=== PATIENT | male | born 1965 | race Caucasian/White ===

== ENCOUNTER 2019-05-07 01:29 | Outpatient (CLI) | payer MEDICAID, SELFPAY ==
[2019-05-07 10:00] LABS: Abs Immature Grans 0.02 k/cumm (0.0-0.09); Absolute Basophil Count 0.05 k/cumm (0.0-0.2); Absolute Eosinophil Count 0.13 k/cumm (0.0-0.7); Absolute Monocyte Count 0.78 k/cumm (0.11-0.7); Basophils % 0.6; Eosinophils % 1.4; HCT 48.5 % (40.0-50.0); HGB 15.9 g/dL (13.5-17.5); Immature Grans % 0.2; Lymphocytes % 18.9; Mean Corp. HGB Concentration 32.8 g/dL (32.0-36.0); Mean Corpuscular Volume 85.4 fL (80-95); Mean Platelet Volume 11.5 fL (8.0-11.0); Monocytes % 8.7; Neutrophils % 70.2; Platelet Count 281 x1000/uL (130-400); RBC 5.68 m/cumm (4.50-6.00); RBC Distribution Width 15.7 % (11.8-14.1); White Blood Cell Count 8.98 k/cumm (4.4-10.8)
[2019-05-07 12:04] LABS: Hemoglobin A1C 5.7 % (4.5-6.2)
[2019-05-07 12:13] LABS: ALT 16 U/L (16-63); AST 12 U/L (15-37); Albumin 3.6 g/dL (3.4-5.0); Alkaline Phosphatase 76 U/L (46-116); Anion Gap 6.1 mmol/L (3-11); BUN 9 mg/dL (7-18); Bilirubin, Total 0.7 mg/dL (0.2-1.0); CO2 32.9 mmol/L (21.0-32.0); CREATININE 0.92 mg/dL (0.70-1.30); Calcium 8.8 mg/dL (8.5-10.1); Calculated LDL 166 mg/dL; Chloride 99 mmol/L (98-107); Cholesterol 224 mg/dL (50-200); Glucose 107 mg/dL (70-100); HDL Cholesterol 42 mg/dL (40-60); Potassium 3.9 mmol/L (3.5-5.1); Sodium 138 mmol/L (136-145); Total Protein 7.6 g/dL (6.4-8.2); Triglyceride 84 mg/dL (30-150)
== END 2019-05-07 01:49 ==
PROVIDERS: PCP Nurse Practitioner Family; Visit Provider Nurse Practitioner Family
DX: I10 Essential (primary) hypertension (principal); E78.5 Hyperlipidemia, unspecified; G47.33 Obstructive sleep apnea (adult) (pediatric)
CPT/HCPCS: 36415; 80053; 80061; 83036; 85025

== ENCOUNTER 2021-12-29 19:14 | Outpatient (REF) | payer MEDICAID, SELFPAY ==
[2021-12-29 20:25] LABS: Anion Gap 6.1 mmol/L (3-11); BUN 11 mg/dL (7-18); CO2 34.9 mmol/L (21.0-32.0); CREATININE 0.9 mg/dL (0.70-1.30); Calcium 9.3 mg/dL (8.5-10.1); Chloride 99 mmol/L (98-107); Glucose 97 mg/dL (74-106); Sodium 140 mmol/L (136-145)
[2021-12-29 20:29] LABS: Hemoglobin A1C 5.6 % (<5.7)
== END 2021-12-29 19:15 | disposition home or self-care (01) ==
LOC: LBN 19:14
PROVIDERS: PCP Nurse Practitioner Family; Visit Provider Nurse Practitioner
DX: I10 Essential (primary) hypertension (principal); R73.03 Prediabetes
CPT/HCPCS: 80048; 83036

== ENCOUNTER 2022-07-04 11:17 | Inpatient (IN) | payer MEDICAID, SELFPAY ==
[2022-07-04] VITALS (27 sets, daily range): BP systolic 102–145; BP diastolic 44–95; PULSE 80–101; RESP 5–23; TEMP 36.1–37.3; O2SAT 89–96
--- NOTE | 2022-07-04 11:30 | RT.EKG_ITS ---
APPROVED REPORT Exam: Resting ECG Reason for Exam: dizzy Patient Location: E HR:90 bpm ECG Measurements Heart Rate 90 AXIS TN 161 P 55 QRSd 96 QRS 71 QT 373 T 33 QTc 456 Conclusion Sinus rhythm...normal P axis, V-rate 60- 99
--- NOTE | 2022-07-04 12:00 | DI.RAD_ITS ---
Exam(s) XR PORTABLE CHEST AP EXAM: XR PORTABLE CHEST AP CLINICAL HISTORY: hypoxia TECHNIQUE: 2D digital imaging was performed of the chest. One image was obtained. An AP view was ob tained. COMPARISON: CR RIBS BILATERAL TO INCLUDE CXR from 08/20/2016 FINDINGS: There is poor inspiration with crowding of the vasculature. MEDIASTINUM: Normal. HEART: Stable cardiomegaly. PULMONARY VASCULATURE: Normal. LUNGS: No focal consolidating infiltrate. PLEURAL SPACE: No pleural effusion or pneumothorax. BONE:Within normal limits for the patient's age. OTHER FINDINGS:Normal. IMPRESSION: 1. Stable cardiomegaly. 2. Poor inspiration. 3. No focal consolidating infiltrates. DATA REPOSITORY: RADIATION DOSE DELIVERED:
[2022-07-04 12:02] LABS: Abs Immature Grans 0.04 10^3/uL (0.0-0.06); Absolute Basophil Count 0.06 10^3/uL (0.0-0.2); Absolute Eosinophil Count 0.08 10^3/uL (0.0-0.7); Absolute Lymphocyte Count 1.13 10^3/uL (1.2-3.4); Absolute Neutrophil Count 8.71 10^3/uL (1.2-6.7); Basophils % 0.5; Eosinophils % 0.7; HCT 51.4 % (40.0-50.0); HGB 15.3 g/dL (13.5-17.5); Immature Grans % 0.4; Lymphocytes % 10.2; MCH 26.1 pg (27.0-33.0); MCHC 29.8 % (32.0-36.0); MCV 88 fL (80-95); MPV 11.2 fL (8.0-11.0); Monocytes % 9.9; Neutrophils % 78.3; Platelet Count 268 10^3/uL (130-400); RBC 5.87 10^6/uL (4.36-5.78); RDW 13.8 % (11.8-14.1); RDW-SD 44.1 fL; WBC 11.12 10^3/uL (4.4-10.8)
--- NOTE | 2022-07-04 12:12 | ED.GENADUL_ITS ---
Discharge Plan Disposition Patient Disposition: Admit to [facility] Condition: Stable Discharge Details Clinical Impression: Hypoxia Admit Date/Time: 07/04/22 15:35 Admit Provider: Angelique Pastrana Attending Provider: Angelique Pastrana Primary Care Provider: Sanjeev Brewer ED Provider: Vinod Mcadams Discharge Data Discharge Date/Time-TO BE ENTERED AT DEPARTURE: 07/04/22 17:04 Medical Decision Making 57 yo male with no significant chronic medical issues, is obese and denies smoking or drug use and doesn't drink alcohol, comes in with feelin tired, went to express care and o2 sat was in the 70's so was referred here. HE states this has been going on for 3 weeks or so, and he has checked his oxygen saturation at home and has been in the 80's. He doesn't feel short of breath and denies chest pain, he states at night he will sometimes have a cough but denies cough throughout the day. He is noted to be hypoxic in the 70s on room air in no distress speaking in full sentences. He increases to 95% on 4L NC. He has clear lung sounds on the left, diminished on the right side. Has equal edema of both lower extremities which he states he has had for years and is unchanged, no calf tenderness. Given the hypoxia will obtain fluvid, cxr to evaluate for infiltrate, obtain cbc, cmp, troponin and probnp. No wheezing on exam so doubt copd/asthma. IF initial workup negative will consider cta for pe labs show probnp just over 300, negative troponin, cxr with cardiomegaly otherwise no acute findings. He is now sitting up in the stretcher and does sound like he has wheezing in the lower lung christensen bilaterally. Will trial duoneb and obtain cta of the chest cta negative per Dr. Basurto, pt in no distress but still requiring oxygen. will discuss with hospitalist about admission Differential Diagnosis Differential Diagnosis: chf, pneumonia, covid, pe Medical Records Medical records reviewed: Yes I reviewed the patient's medical records. Imaging Data Radiologic Study: Attestation: I personally reviewed and interpreted this imaging study as follows: Imaging: X-Ray Radiologist's impression: IMPRESSION: 1. Stable cardiomegaly. 2. Poor inspiration. 3. No focal consolidating infiltrates.? Radiologic Study #2: Attestation: I personally reviewed and interpreted this imaging study as follows: Imaging: CT Scan Radiologist's impression: no acute findings Lab Data Lab results reviewed: Yes I reviewed the patient's lab results. ECG Data Attestation: I personally reviewed and interpreted this ECG (s) as follows: Prior ECG tracings: not available for review Interpretation: sinus rhythm, rate of 90, pr 161 no stemi Sign Out No HPI General Mode of arrival: ambulatory . Date/Time Provider Initiated Documentation: 07/04/22 11:18 . Limitations to Documentation: no limitations . Information obtained by: patient . History of Present Illness 57 year old M presents to the emergency department with the chief complaint of tired, described as moderate, Patient started experiencing this week(s) (3) and it has been constant. No relieving factors improve symptom(s), No exacerbating factors reported . Patient notes cough; denies chest pain, fever/chills and shortness of breath. Patient did receive the following treatments prior to arrival, none Related Data Home Medications Medication Instructions Recorded Confirmed chlorthalidone 25 mg tablet 25 mg PO DAILY #90 tabs 12/29/21 07/04/22 lisinopril 40 mg tablet 40 mg PO DAILY #90 tabs 12/29/21 07/04/22 escitalopram oxalate 20 mg tablet 20 mg PO DAILY #90 tabs 02/08/22 07/04/22 sildenafil 50 mg tablet (Viagra) 50 mg PO DAILY PRN sexual activity 02/08/22 07/04/22 #60 tabs furosemide 20 mg tablet 20 mg PO DAILY #90 tabs 05/02/22 07/04/22 semaglutide 7 mg tablet 7 mg PO DAILY #90 tabs 05/02/22 07/04/22 Previous Rx's Medication Instructions Recorded chlorthalidone 25 mg tablet 25 mg PO DAILY #90 tabs 12/29/21 lisinopril 40 mg tablet 40 mg PO DAILY #90 tabs 12/29/21 escitalopram oxalate 20 mg tablet 20 mg PO DAILY #90 tabs 02/08/22 sildenafil 50 mg tablet (Viagra) 50 mg PO DAILY PRN sexual activity 02/08/22 #60 tabs furosemide 20 mg tablet 20 mg PO DAILY #90 tabs 05/02/22 semaglutide 7 mg tablet 7 mg PO DAILY #90 tabs 05/02/22 Allergies Allergy/AdvReac Type Severity Reaction Status Date / Time plums AdvReac Unknown Uncoded 07/04/22 10:39 General Stated Complaint: AMS/LOC MONTRELL: 2 Review of Systems All systems reviewed & are unremarkable except as noted in HPI and below Constitutional Constitutional: Denies chills and Denies fever(s) Cardiovascular Cardiovascular: Denies chest pain and Denies dyspnea Respiratory Respiratory: Denies dyspnea Gastrointestinal Gastrointestinal: Denies abdominal pain, Denies nausea and Denies vomiting Genitourinary Genitourinary: Denies dysuria Musculoskeletal Musculoskeletal: Denies joint swelling PFSH All Active Problems Respiratory acidosis (Acute) Toxic metabolic encephalopathy (Acute) Acute on chronic respiratory failure with hypoxia and hypercapnia (Acute) Altered mental state (Acute) Lower extremity ulceration (Acute) Hypercarbia (Acute) Discharge planning issues (Acute) DVT prophylaxis (Acute) Hypoxia (Acute) Morbid obesity with BMI of 60.0-69.9, adult (Chronic) Insomnia (Chronic) Depressive disorder (Chronic) Severe obstructive sleep apnea (Chronic) Original PSG 12/02/16; BIPAP Essential hypertension (Chronic) Prediabetes (Chronic) Chewing tobacco use (Chronic) Medical History Hyperlipidemia Surgical History H/O umbilical hernia repair (05/26/14) S/P appendectomy S/P colonoscopy (12/14/16) Family History Mother , at 70 from metastatic breast cancer Essential hypertension Metastatic breast cancer Type 2 diabetes mellitus Father No problems noted. Sister Depression Maternal Grandfather Heart disease Lung cancer Maternal Grandmother COPD with emphysema Paternal Grandfather No problems noted. Paternal Grandmother No problems noted. 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 Pets and animals: No Sexually active: Yes Do you think of yourself as: straight/heterosexual Current gender identity: male What is your relationship status?: How often do you talk on the phone with friends or family?: three or more times per week How often do you get together with friends or relatives?: three or more times per week How often do you attend roman catholic or episcopalian services?: decline to answer Do you belong to any clubs or organized social groups?: decline to answer Panel score (0-1 are the most socially isolated patients): 1 What type of physical activity do you participate in: walking Duration: 15-30 minutes/day Frequency: daily Kay/Mosque: none Special kay needs: No Seatbelt use: never Helmet use: Yes Helmet use: always Drive intox or ride w/intox delivery motorcycle driver: No Do you feel safe in your relationship?: Yes Exam Const General: no acute distress Orientation: alert HENMT Head: normal to inspection Ears: external ears normal General nose exam: external nose normal Mouth: moist mucous membranes Eyes General: appearance normal, both eyes and all related structures Neck Neck: normal visual inspection Resp Effort & Inspection: normal respiratory effort, able to speak in complete sentences and no audible wheezes Cardio Rate: regular rate Heart Sounds: no murmurs Skin General skin exam: no rashes or lesions noted Neuro General: patient alert and patient oriented x3 Extrem General: full ROM and capillary refill normal Psych Mental Status: mental status grossly normal Course Vital Signs Vital signs: Vital Signs Temperature 37.3 C 07/04/22 12:01 Pulse 87 07/04/22 12:01 Respiratory Rate 20 07/04/22 12:01 Blood Pressure 115/71 07/04/22 12:01 Pulse Oximetry 89 L 07/04/22 12:01 Temperature 37.3 C 07/04/22 12:01 Temperature Source Temporal Artery Scan 07/04/22 12:01 Pulse 87 07/04/22 12:01 Respiratory Rate 22 07/04/22 12:04 Respiratory Effort Short of Breath 07/04/22 12:04 Respiratory Depth Normal 07/04/22 12:04 Respiratory Pattern Normal 07/04/22 12:04 Blood Pressure 115/71 07/04/22 12:01 Pulse Oximetry 89 L 07/04/22 12:01 Oxygen Delivery Method Nasal Cannula 07/04/22 12:01 Oxygen Flow Rate 3 07/04/22 12:01 Pain Level 0 07/04/22 12:01 Lab/Test Results Lab/Test Results: Laboratory Tests Range/Units 07/04/22 11:55 WBC (4.4-10.8) 10^3/uL 11.12 H RBC (4.36-5.78) 10^6/uL 5.87 H Hgb (13.5-17.5) g/dL 15.3 Hct (40.0-50.0) % 51.4 H MCV (80-95) fL 88 MCH (27.0-33.0) pg 26.1 L MCHC (32.0-36.0) % 29.8 L RDW (11.8-14.1) % 13.8 Plt Count (130-400) 10^3/uL 268 MPV (8.0-11.0) fL 11.2 H Immature Gran % 0.4 Neutrophils % 78.3 Lymphocytes % 10.2 Monocytes % 9.9 Eosinophils % 0.7 Basophils % 0.5 Nucleated RBC % (0.0-0.3) % 0.0 Absolute Neutrophils (1.2-6.7) 10^3/uL 8.71 H Absolute Lymphocytes (1.2-3.4) 10^3/uL 1.13 L Absolute Monocytes (0.1-0.8) 10^3/uL 1.10 H Absolute Eosinophils (0.0-0.7) 10^3/uL 0.08 Absolute Basophils (0.0-0.2) 10^3/uL 0.06
[2022-07-04 12:23] LABS: ALT 17 U/L (16-63); AST 21 U/L (15-37); Albumin 3.2 g/dL (3.4-5.0); Alkaline Phosphatase 76 U/L (46-116); Anion Gap -1.7 mmol/L (3-11); BUN 11 mg/dL (7-18); Bilirubin, Total 0.4 mg/dL (0.2-1.0); CO2 41.7 mmol/L (21.0-32.0); CREATININE 0.7 mg/dL (0.70-1.30); Calcium 8.3 mg/dL (8.5-10.1); Chloride 99 mmol/L (98-107); Estimated GFR 108.82 (mL/min/1.73m2); Glucose 100 mg/dL (74-106); Magnesium 2.2 mg/dL (1.8-2.4); NT-proBNP 386 pg/mL (<300); Potassium 4.4 mmol/L (3.5-5.1); Sodium 139 mmol/L (136-145); Total Protein 7.8 g/dL (6.4-8.2); Troponin I < 50 ng/L (<or=60)
[2022-07-04 12:38] LABS: COVID-19 PCR Negative (Negative); Influenza A PCR Negative (Negative); Influenza B PCR Negative (Negative); RSV PCR Negative (Negative)
--- NOTE | 2022-07-04 13:50 | DI.CT_ITS ---
Exam(s) CT CHEST PE CTA EXAM: CT CHEST PE CTA CLINICAL HISTORY: hypoxia. TECHNIQUE: Imaging Protocol: Axial CT angiography was performed with multi-slice acquisition and mu lti-planar and/or 3D reconstructions. CONTRAST MATERIAL: Intravenous: Omnipaque 350 contrast volume:99 mL COMPARISON: CR XR PORTABLE CHEST AP from 07/04/2022 FINDINGS: Examination limited by patient body habitus. Tracheobronchial tree: Patent where visualized. Pulmonary parenchyma: No consolidation or dominant measurable mass. There are dependent atelectatic c hanges in the lungs. No focal consolidation is seen. Pulmonary Arteries: The subsegmental and some of the segmental pulmonary arteries are poorly opacifie d limiting evaluation for peripheral pulmonary emboli. No large central pulmonary embolus is seen. Mediastinum and Ayanna: No dominant adenopathy or fluid collection. The esophagus is unremarkable. Visualized thyroid gland: Unremarkable. Pleura: No effusion or pneumothorax. Heart: The heart is not dilated. No coronary artery calcifications are seen. No pericardial effusion. Aorta: Thoracic aorta non-dilated. No evidence of dissection. Mild atherosclerosis. Upper abdomen: Unremarkable. Soft tissues: Unremarkable. Bones: Within normal limits for the patient's age.There are old healed rib fractures. IMPRESSION: 1. No evidence of pulmonary embolism. The subsegmental on some of the segmental pulmonary arteries a re poorly opacified limiting evaluation for peripheral pulmonary emboli. 2. Thoracic aortic dissection or aneurysm. 3. Examination is limited due to patient body habitus. 4. Findings were discussed with Dr. Mcadams at 3:14 p.m. on 07/04/2022. RADIATION DOSE DELIVERED: 873.79mGy.cm Total DLP DATA REPOSITORY: All CT scans at this facility are submitted to the National Radiology Data Registry (NRDR) Dose Index Registry (DIR) with the [employer] (ACR). RADIATION OPTIMIZATION: All CT scans at this facility use at least one of these dose optimization te chniques: automated exposure control; mA and/or kV adjustment per patient size (includes targeted exa ms where dose is matched to clinical indication); or iterative reconstruction.
[2022-07-04] MEDS: Albuterol/Ipratropium 3 ML UPD VIAL UPD ×2 (14:11→15:26)
[2022-07-04] MEDS: Normal Saline - Diluent 50 ML VIAL IJ (14:32)
[2022-07-04] MEDS: Normal Saline Flush 10 ML SYR IVP ×2 (14:33→19:29)
[2022-07-04] MEDS: Omnipaque 350 MG/ML 100 ML BTL IJ (14:34)
[2022-07-04 15:38] LABS: Troponin I < 50 ng/L (<or=60)
[2022-07-04 15:46] LABS: Lab Add On Test DONE
[2022-07-04 15:58] LABS: HCO3 (Venous) 41 mmol/L (23-28); TCO2 (Venous) 43 mmol/l (24-29); pH (Venous) 7.26 (7.31-7.41); pO2 (Venous) 101 mmHg
[2022-07-04 15:59] LABS: BE (Venous) 13 mmol/L (-2-3); O2 Sat (Venous) 96 %
[2022-07-04 16:00] LABS: pCO2 (Venous) 90 mmHg (41-51)
[2022-07-04 16:33] LABS: Procalcitonin < 0.1 ng/mL
--- NOTE | 2022-07-04 17:44 | W.PM.HP.N ---
Date of service: 07/04/22 Time of Service: 17:44 Assessment and Plan Assessment and plan (1) Hypercarbia: Status: Acute Assessment and plan: Carbon Dioxide 41.7 VBG pCO2 90 BiPap per RT settings to decrease CO2 and improve oxygenation WBC 11.12 Procalcitonin <0.1 Recheck WBC /15 (2) Hypoxia: Status: Acute Assessment and plan: SPO2 70% RA up to 96% on 4 LPM BiPap per RT settings to improve oxygenation and decrease CO2; improving AMS HOB at least 45 degrees Incentive Sprirometer (3) Altered mental state: Status: Acute Assessment and plan: S/T hypercarbia; as above (4) Lower extremity ulceration: Status: Acute Assessment and plan: Ulcerations to BLE, weeping; will get wound consult (5) Morbid obesity with BMI of 60.0-69.9, adult: Status: Chronic Assessment and plan: Obese; consult chief estimator; Heart Healthy low fat diet (6) Severe obstructive sleep apnea: Status: Chronic Assessment and plan: Has home BiPap; does not use it - encourage him to use it nightly BiPap initiated here (7) Depressive disorder: Status: Chronic Assessment and plan: Stable - continue Escitalopram (8) Essential hypertension: Status: Chronic Assessment and plan: Stable - continue Lisinopril (9) Prediabetes: Status: Chronic Assessment and plan: Most recent A1C 5.6% 12/29/2021 SC Insulin (10) DVT prophylaxis: Status: Acute Assessment and plan: Enoxaparin 60 mg BID (11) Discharge planning issues: Status: Acute Assessment and plan: Home when stable discussed with Dr Pastrana History of Present Illness History of Present Illness Chief Complaint: Fatigue Narrative: This is 57 year old?obese M with past medical history of depression, severe sleep apnea, essential hypertension and prediabetes, who presented to the [facility] with the complaint of feeling fatigued for 3 weeks. He was found to have SPO2 on room air at the time, to the low 70s. He was sent to the [facility] emergency department. ?Patient noted cough; denied chest pain, fever/chills and stated he did not have any shortness of breath.?He denied smoking or drug use and states he does not drink alcohol and has also stopped his intake of soda and is choosing a healthy diet. All. He was speaking in full sentences. He was put on 4 L of oxygen by nasal cannula and his SPO2 increased to 95%. He has clear lung sounds on the left with some diminished lung sounds right. Has bilateral lower extremity edema for years and is unchanged 90 Tenderness. In the emergency department his labs show pro BNP just over 3 negative troponin chest x-ray with cardiomegaly otherwise no acute finding. He received a DuoNeb in the emergency department without much relief. He had a CTA of the chest that was negative for PE. Of note received a COVID - 19 Bivalent vaccine, influenza vaccine and zoster vaccine on May 02, 2022. Patient states he does not use BiPap as he should, he does not like it. He does have the head of the bed raised. He is admitted to the medical floor with BiPap. Review of Systems All systems reviewed & are unremarkable except as noted in HPI and below PFSH All Active Problems Altered mental state (Acute) Lower extremity ulceration (Acute) Hypercarbia (Acute) Discharge planning issues (Acute) DVT prophylaxis (Acute) Hypoxia (Acute) Morbid obesity with BMI of 60.0-69.9, adult (Chronic) Insomnia (Chronic) Depressive disorder (Chronic) Severe obstructive sleep apnea (Chronic) Original PSG 12/02/16; BIPAP Essential hypertension (Chronic) Prediabetes (Chronic) Chewing tobacco use (Chronic) Medical History Hyperlipidemia Surgical History H/O umbilical hernia repair (05/26/14) S/P appendectomy S/P colonoscopy (12/14/16) Family History Mother , at 70 from metastatic breast cancer Essential hypertension Metastatic breast cancer Type 2 diabetes mellitus Father No problems noted. Sister Depression Maternal Grandfather Heart disease Lung cancer Maternal Grandmother COPD with emphysema Paternal Grandfather No problems noted. Paternal Grandmother No problems noted. 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 Pets and animals: No Sexually active: Yes Do you think of yourself as: straight/heterosexual Current gender identity: male What is your relationship status?: How often do you talk on the phone with friends or family?: three or more times per week How often do you get together with friends or relatives?: three or more times per week How often do you attend baptism or spiritism services?: decline to answer Do you belong to any clubs or organized social groups?: decline to answer Panel score (0-1 are the most socially isolated patients): 1 What type of physical activity do you participate in: walking Duration: 15-30 minutes/day Frequency: daily Kay/Presybeterian: none Special kay needs: No Seatbelt use: never Helmet use: Yes Helmet use: always Drive intox or ride w/intox flatbed driver: No Do you feel safe in your relationship?: Yes Meds Allergies and Home Medications Allergies Allergy/AdvReac Type Severity Reaction Status Date / Time plums AdvReac Unknown Uncoded 07/04/22 10:39 Home Medications Medication Instructions Recorded Confirmed Type chlorthalidone 25 mg tablet 25 mg PO DAILY #90 tabs 12/29/21 07/04/22 Rx lisinopril 40 mg tablet 40 mg PO DAILY #90 tabs 12/29/21 07/04/22 Rx escitalopram oxalate 20 mg tablet 20 mg PO DAILY #90 tabs 02/08/22 07/04/22 Rx sildenafil 50 mg tablet (Viagra) 50 mg PO DAILY PRN sexual activity 02/08/22 07/04/22 Rx #60 tabs furosemide 20 mg tablet 20 mg PO DAILY #90 tabs 05/02/22 07/04/22 Rx semaglutide 7 mg tablet 7 mg PO DAILY #90 tabs 05/02/22 07/04/22 Rx Exam Const General: no acute distress Orientation: alert HENMI Head: normal to inspection Ears: external ears normal General nose exam: external nose normal Mouth: moist mucous membranes Eyes General: appearance normal, both eyes and all related structures Neck Neck: normal visual inspection Resp Effort & Inspection: normal respiratory effort, no audible wheezes, no cough, decreased respiratory effort, labored and other Auscultation: diminished lung sounds and wheezes expiratory wheezes Cardio Rate: regular rate Heart Sounds: no murmurs Skin General skin exam: no rashes or lesions noted Neuro General: patient alert and patient oriented x3 Extrem General: full ROM and capillary refill normal Psych Mental Status: mental status grossly normal Results Labs Result diagrams: 07/05/22 06:25 07/05/22 06:25 Labs: Laboratory Results - last 24 hr 07/04/22 07/04/22 07/04/22 11:55 11:55 11:57 WBC 11.12 H RBC 5.87 H Hgb 15.3 Hct 51.4 H MCV 88 MCH 26.1 L MCHC 29.8 L RDW 13.8 Plt Count 268 MPV 11.2 H Immature Gran % 0.4 Neutrophils % 78.3 Lymphocytes % 10.2 Monocytes % 9.9 Eosinophils % 0.7 Basophils % 0.5 Nucleated RBC % 0.0 Absolute Neutrophils 8.71 H Absolute Lymphocytes 1.13 L Absolute Monocytes 1.10 H Absolute Eosinophils 0.08 Absolute Basophils 0.06 VBG pH VBG pCO2 VBG pO2 VBG HCO3 VBG Total CO2 VBG O2 Saturation VBG Base Excess Sodium 139 Potassium 4.4 Chloride 99 Carbon Dioxide 41.7 H Anion Gap -1.7 L BUN 11 Creatinine 0.7 Est GFR (CKD-EPI 2020) 108.82 Glucose 100 Calcium 8.3 L Magnesium 2.2 Total Bilirubin 0.4 AST 21 ALT 17 Alkaline Phosphatase 76 Troponin I < 50 NT-Pro-B Natriuret Pep 386 H Total Protein 7.8 Albumin 3.2 L Procalcitonin COVID-19 Source Not Applicable SARS-CoV-2 (PCR) Negative Influenza Type A (PCR) Negative Influenza Type B (PCR) Negative RSV (PCR) Negative Add-On Test Request 07/04/22 07/04/22 07/04/22 15:15 15:35 15:35 WBC RBC Hgb Hct MCV MCH MCHC RDW Plt Count MPV Immature Gran % Neutrophils % Lymphocytes % Monocytes % Eosinophils % Basophils % Nucleated RBC % Absolute Neutrophils Absolute Lymphocytes Absolute Monocytes Absolute Eosinophils Absolute Basophils VBG pH 7.26 L VBG pCO2 90 H* VBG pO2 101 VBG HCO3 41 H VBG Total CO2 43 H VBG O2 Saturation 96 VBG Base Excess 13 H Sodium Potassium Chloride Carbon Dioxide Anion Gap BUN Creatinine Est GFR (CKD-EPI 2020) Glucose Calcium Magnesium Total Bilirubin AST ALT Alkaline Phosphatase Troponin I < 50 NT-Pro-B Natriuret Pep Total Protein Albumin Procalcitonin COVID-19 Source SARS-CoV-2 (PCR) Influenza Type A (PCR) Influenza Type B (PCR) RSV (PCR) Add-On Test Request DONE 07/04/22 15:43 WBC RBC Hgb Hct MCV MCH MCHC RDW Plt Count MPV Immature Gran % Neutrophils % Lymphocytes % Monocytes % Eosinophils % Basophils % Nucleated RBC % Absolute Neutrophils Absolute Lymphocytes Absolute Monocytes Absolute Eosinophils Absolute Basophils VBG pH VBG pCO2 VBG pO2 VBG HCO3 VBG Total CO2 VBG O2 Saturation VBG Base Excess Sodium Potassium Chloride Carbon Dioxide Anion Gap BUN Creatinine Est GFR (CKD-EPI 2020) Glucose Calcium Magnesium Total Bilirubin AST ALT Alkaline Phosphatase Troponin I NT-Pro-B Natriuret Pep Total Protein Albumin Procalcitonin < 0.1 COVID-19 Source SARS-CoV-2 (PCR) Influenza Type A (PCR) Influenza Type B (PCR) RSV (PCR) Add-On Test Request Last Vital Signs Temp 37.3 C 07/04/22 12:01 Pulse 88 07/04/22 16:44 Resp 18 07/04/22 16:50 BP 107/54 L 07/04/22 16:44 Pulse Ox 91 L 07/04/22 15:26
[2022-07-04] MEDS: Furosemide 40 MG/4 ML VIAL IVP (19:27)
[2022-07-04] MEDS: Enoxaparin 60 MG/0.6 ML SYR SC (19:28)
[2022-07-04 19:37] LABS: Abs Immature Grans 0.04 10^3/uL (0.0-0.06); Absolute Basophil Count 0.07 10^3/uL (0.0-0.2); Absolute Eosinophil Count 0.12 10^3/uL (0.0-0.7); Absolute Lymphocyte Count 1.16 10^3/uL (1.2-3.4); Absolute Monocyte Count 1.17 10^3/uL (0.1-0.8); Absolute Neutrophil Count 8.55 10^3/uL (1.2-6.7); Basophils % 0.6; Eosinophils % 1.1; HCT 49.6 % (40.0-50.0); HGB 14.5 g/dL (13.5-17.5); Immature Grans % 0.4; Lymphocytes % 10.4; MCH 25.8 pg (27.0-33.0); MCHC 29.2 % (32.0-36.0); MCV 88 fL (80-95); MPV 10.8 fL (8.0-11.0); Monocytes % 10.5; Platelet Count 261 10^3/uL (130-400); RBC 5.63 10^6/uL (4.36-5.78); RDW 13.9 % (11.8-14.1); RDW-SD 44.7 fL; WBC 11.11 10^3/uL (4.4-10.8)
[2022-07-04 20:00] LABS: ALT 17 U/L (16-63); AST 17 U/L (15-37); Alkaline Phosphatase 75 U/L (46-116); Anion Gap -1.4 mmol/L (3-11); BUN 11 mg/dL (7-18); Bilirubin, Total 0.6 mg/dL (0.2-1.0); CO2 40.4 mmol/L (21.0-32.0); CREATININE 0.7 mg/dL (0.70-1.30); Calcium 8.2 mg/dL (8.5-10.1); Chloride 99 mmol/L (98-107); Estimated GFR 108.82 (mL/min/1.73m2); Glucose 107 mg/dL (74-106); Magnesium 2.1 mg/dL (1.8-2.4); Potassium 4.1 mmol/L (3.5-5.1); Sodium 138 mmol/L (136-145); Total Protein 7.5 g/dL (6.4-8.2); Troponin I < 50 ng/L (<or=60)
[2022-07-05] VITALS (55 sets, daily range): BP systolic 111–169; BP diastolic 60–115; PULSE 58–106; RESP 11–26; TEMP 36.1–36.9; O2SAT 81–96
--- NOTE | 2022-07-05 | DI.US_ITS ---
APPROVED REPORT EXAM: Comprehensive 2D, Doppler, and color-flow Echocardiogram Patient Location: In-Patient Room/Bed: 212 Construction Safety Consultant: Bree Wade RDCS (AE) Indications: ?pulmonary HTN, sleep apnea, HTN Other Information Study Quality: Poor. Technically limited study due to body habitus, inability to position patient exa m done bedside supine. Conclusion Technically limited study Left ventricular size wall thickness and systolic function appear within the range of normal There is mitral annular calcification Right-sided chambers were not well visualized Right ventricular systolic pressure could not be estimated Wall motion Left Ventricle The left ventricle is normal size. The overall left ventricular systolic function appears normal. The re is normal left ventricular wall thickness. Regional wall motion is not well visualized but grossly normal. LVEF is 58%. Right Ventricle Right ventricle is not well visualized. Right ventricular systolic function could not be assessed. Atria Left atrium is not well visualized. Right atrium is not well visualized. Aortic Valve The aortic valve is normal in structure. There is no aortic valvular stenosis. No aortic regurgitatio n is present. Mitral Valve There is mitral annular calcification. No evidence of mitral valve stenosis. Trace mitral regurgitati on. Tricuspid Valve The tricuspid valve is normal in structure. There is no tricuspid valve stenosis. Trace tricuspid reg urgitation. Unable to assess PA pressure. Pulmonic Valve Pulmonic valve is not well visualized. There is no pulmonic valvular stenosis. There is no pulmonic v alvular regurgitation. Great Vessels The aortic root is normal in size. Ascending aorta is not well visualized. Aortic arch is not well vi sualized. The IVC was not visualized. Pericardium Technically limited imaging due to body habitus 2D Dimensions IVSD d PLAX 1.21 cm M: 0.6-1.2 LVPW d PLAX 1.23 cm M: 0.6 - 1.2 LVID d PLAX 4.88 cm M: 4.2 - 5.8 LVDs 3.35 cm M: 2.5 - 4.0 Ao Root d 3.00 cm M: 3.1 - 3.7 LV EF Teichholz 58.1 % FS 30.65 % LV Diastology E/A Ratio 1.1 MV E Vmax 0.86 (0.4-1.3 m/s) MV A Vmax 0.80 (0.4-1.3 m/s) MV E/A Ratio 1.03 Aortic Valve LVOT Area 3.65 cm2 AoV Area Vmax 2.76 cm2 LVOT Vmax 0.80 m/s AoV Area/ BSA (Vmax) 1.00 cm2/m2 LVOT Mean Kelvin. 0.61 m/s KALYN Mean Kelvin. 2.70 cm2 LVOT Peak Grad 2.6 mmHg KALYN Mean Kelvin. Index 0.97 cm2/m2 LVOT Mean Grad 1.6 mmHg LVOT VTI 0.166 m LVOT Diam s 2.15 cm AoV Vmax 1.06 m/s Velocity Ratio 0.75 AoV Mean Kelvin. 0.82 m/s AoV Peak Grad 4.5 mmHg LVOT SV 60.48 mL AoV Mean Grad 2.9 mmHg AoV VTI 0.204 m AoV Area VTI 2.97 cm2 AoV Area/ BSA (VTI) 1.07 cm/m2 Mitral Valve MV DT 410 (160-240 msec) MV PHT 119 msec MV Area PHT 1.85 cm2 MV VTI 0.290 m MV Area VTI 2.09 (4.0-6.0 cm2) Pulmonary Valve PV Vmax 1.29 (0.5-1.5 m/s) RVOT Peak Gr. 4.17 mmHg PV Peak Grad 6.6 mmHg RVOT Mean Gr. 2.20 mmHg PV Mean Grad 3.8 mmHg RVOT VTI 0.197 m PV VTI 0.290 m RVOT Vmax 1.02 m/s
[2022-07-05 06:58] LABS: Abs Immature Grans 0.04 10^3/uL (0.0-0.06); Absolute Basophil Count 0.06 10^3/uL (0.0-0.2); Absolute Eosinophil Count 0.13 10^3/uL (0.0-0.7); Absolute Lymphocyte Count 0.88 10^3/uL (1.2-3.4); Absolute Monocyte Count 1.18 10^3/uL (0.1-0.8); Basophils % 0.5; Eosinophils % 1.1; HCT 50.9 % (40.0-50.0); HGB 14.9 g/dL (13.5-17.5); Immature Grans % 0.3; Lymphocytes % 7.5; MCHC 29.3 % (32.0-36.0); MCV 89 fL (80-95); MPV 11.1 fL (8.0-11.0); Neutrophils % 80.6; Platelet Count 269 10^3/uL (130-400); RBC 5.73 10^6/uL (4.36-5.78); RDW 13.9 % (11.8-14.1); RDW-SD 44.8 fL; WBC 11.79 10^3/uL (4.4-10.8)
[2022-07-05 07:10] LABS: Anion Gap -0.6 mmol/L (3-11); BUN 12 mg/dL (7-18); CO2 42.6 mmol/L (21.0-32.0); CREATININE 0.7 mg/dL (0.70-1.30); Calcium 8.4 mg/dL (8.5-10.1); Chloride 98 mmol/L (98-107); Estimated GFR 108.82 (mL/min/1.73m2); Glucose 104 mg/dL (74-106); Magnesium 2.1 mg/dL (1.8-2.4); Sodium 140 mmol/L (136-145)
[2022-07-05 07:29] LABS: Hemoglobin A1C 5.9 % (<5.7)
[2022-07-05 08:07] LABS: TCO2 (Venous) 49 mmol/l (24-29); pH (Venous) 7.24 (7.31-7.41); pO2 (Venous) 55 mmHg
[2022-07-05 08:08] LABS: BE (Venous) 19 mmol/L (-2-3); HCO3 (Venous) 46 mmol/L (23-28); O2 Sat (Venous) 79 %
[2022-07-05 08:10] LABS: pCO2 (Venous) 108 mmHg (41-51)
[2022-07-05] MEDS: Chlorthalidone 25 MG TAB PO (08:15)
[2022-07-05] MEDS: Enoxaparin 60 MG/0.6 ML SYR SC ×2 (08:15→20:58)
[2022-07-05] MEDS: Lisinopril 20 MG TAB 40 MG PO (08:15)
[2022-07-05] MEDS: Escitalopram 20 MG TAB PO (08:15)
--- NOTE | 2022-07-05 10:43 | W.INDIABCONS ---
Date of service: 07/05/22 Time of Service: 10:43 Diabetes Inpatient Consult Reason for Visit: morbid obestiy DESCRIPTION/ASSESSMENT: Attempted to meet Aamir today, however, busy with treatment. PMH: morbid obesity, pre DM, HTN, sleep apnea. BMI: 69. Admitted with ulcerative IDALIA. Following diabetic diet with excellent intake. INTERVENTION: will revisit and provide diet education as needed PLAN: weight, po intake, labs Time Spent in Nutritional Counseling and Treatment: 0
--- NOTE | 2022-07-05 10:54 | PDOC.CMIN ---
- If Service Date Differs Date of service: 07/05/22 Time of Service: 10:54 Care Management Initial Assess REASON FOR HOSPITALIZATION:: reespiratory failure PAST MEDICAL HISTORY/PAST SURGICAL HISTORY:: All Active Problems. Lower extremity ulceration (Acute). Hypercarbia (Acute). Discharge planning issues (Acute). DVT prophylaxis (Acute). Hypoxia (Acute). Morbid obesity with BMI of 60.0-69.9, adult (Chronic). Insomnia (Chronic). Depressive disorder (Chronic). Severe obstructive sleep apnea (Chronic). Original PSG 12/02/16; BIPAP. Essential hypertension (Chronic). Prediabetes (Chronic). Chewing tobacco use (Chronic). Medical History . Hyperlipidemia. Surgical History . H/O umbilical hernia repair (05/26/14). S/P appendectomy. S/P colonoscopy (12/14/16) PREVIOUS FUNCTIONAL STATUS/SOCIAL/FAMILY SUPPORTS:: Aamir lives in [place] with his father and helps him out. He does not have any children but his sister lives in the area and is supportive. 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 He does not receive any services nor does he use any assistive devices. CURRENT FUNCTIONAL STATUS:: Aamir was transferred to the ICU this morning due to respiratory distress and inability/unwillingness to wear his bipap. Per provider, he may need to be intubated. Aamir was sitting up in a chair when CM met with him. He was wearing bipap and struggled to stay awake long enough to answer any questions. When he did, he provided mostly one word answers. ADVANCE DIRECTIVES:: none on file Has patient been provided with info about the portal/API?: Yes Did the patient sign up for the portal?: No CODE STATUS:: Full Code INSURANCE COVERAGE / FINANCIAL ISSUES:: Medicaid CURRENT HOME/COMMUNITY SERVICES/EQUIPMENT:: none PRIMARY CARE PHYSICIAN:: Sanjeev Urias POTENTIAL DISCHARGE NEEDS:: follow up with PCP and plan of care PATIENT/FAMILY EDUCATION NEEDS:: Review of discharge instructions, limitations, activity, medications, follow up plan, Ask Me Three TRANSPORTATION:: via private vehicle with friends/family PLAN:: Anticipate Aamir will discharge home, possibly with no new services. He will follow up with community providers and plan of care and transport with a friend or family member. CM will continue to support Aamir and assess for ongoing discharge concerns.
--- NOTE | 2022-07-05 12:21 | W.PM.PROGNOT ---
Date of Service Date of service: 07/05/22 Time of Service: 12:21 Assessment and Plan Assessment and plan (1) Acute on chronic respiratory failure with hypoxia and hypercapnia: Status: Acute Assessment and plan: In setting of known sleep apnea, obesity with BMI of 69.8 kg/m2, noncompliance with BiPAP. Suspect the patient has obesity hypoventilation syndrome. Encourage compliance with BiPAP. Transfer to the ICU. Diurese. Monitor serial VBGs. (2) Toxic metabolic encephalopathy: Status: Acute Assessment and plan: Due to CO2 retention/CO2 narcosis. Cannot rule out longstanding hypoxic brain injury as well. Continue bipap, Diuresis and monitor mental status. (3) Respiratory acidosis: Status: Acute Assessment and plan: As above (4) Severe obstructive sleep apnea: Status: Chronic Assessment and plan: As above - BiPAP therapy very much encouraged. Palliatie care consulted should the patient again become noncompliant - he is full code and intubation would eventually be required if he does not wear the BiPAP. (5) Lower extremity ulceration: Status: Acute Assessment and plan: Wound care consulted. (6) Morbid obesity with BMI of 60.0-69.9, adult: Status: Chronic Assessment and plan: Encourage weight loss. Dance Studio Manager consulted. (7) Depressive disorder: Status: Chronic Assessment and plan: Continue Escitalopram (8) Essential hypertension: Status: Chronic Assessment and plan: Continue Lisinopril (9) Prediabetes: Status: Chronic Assessment and plan: A1C 5.9. Continue sliding scale insulin. (10) DVT prophylaxis: Status: Acute Assessment and plan: Enoxaparin 60 mg SC BID (11) Discharge planning issues: Status: Acute Assessment and plan: Full code Transfer to the ICU. Total Critical Care Time 35 minutes. Palliative care consulted. Anticipate discharge home. Subjective Subjective Interval history since last seen: Mr Briones wore his BiPAP mask on and off last night. Last night/this morning, he verbalized to nursing that he had fallen, but he was found sitting at the edge of the bed with no signs of said fall/no visible injury. This morning, he has not been wearing the mask consistently and was found to be sleepy and somewhat confused. When I came to see him, he was, in fact, on BiPAP, 04/25, arousable, verbalizing understanding that, if he didn't wear it, there is a good chance that he would end up intubated and on the ventilator. He agreed to transfer to the ICU. He denies dizziness, chest pain, shortness of breath, nausea, pain. Exam Narrative Exam Narrative: General: Obese male on BiPAP, A&Ox2 (does not know the exact date), lethargic but arousable. HEENT: EOMI, MMM Heart: RRR Lungs: Diminished breath sounds B Abdomen: soft, nontender, nondistended Extremities: 2+ pitting edema B, chronic venous stasis dermatitis Objective Last Vital Signs Temp 36.6 C 07/05/22 06:46 Pulse 78 07/05/22 06:46 Resp 22 07/05/22 06:46 BP 160/96 H 07/05/22 06:46 Pulse Ox 95 07/05/22 06:46 Laboratory Results - last 24 hr 07/04/22 07/04/22 07/04/22 11:55 11:57 15:15 WBC RBC Hgb Hct MCV MCH MCHC RDW Plt Count MPV Immature Gran % Neutrophils % Lymphocytes % Monocytes % Eosinophils % Basophils % Nucleated RBC % Absolute Neutrophils Absolute Lymphocytes Absolute Monocytes Absolute Eosinophils Absolute Basophils VBG pH VBG pCO2 VBG pO2 VBG HCO3 VBG Total CO2 VBG O2 Saturation VBG Base Excess Sodium 139 Potassium 4.4 Chloride 99 Carbon Dioxide 41.7 H Anion Gap -1.7 L BUN 11 Creatinine 0.7 Est GFR (CKD-EPI 2020) 108.82 Glucose 100 Hemoglobin A1c Calcium 8.3 L Magnesium 2.2 Total Bilirubin 0.4 AST 21 ALT 17 Alkaline Phosphatase 76 Troponin I < 50 < 50 NT-Pro-B Natriuret Pep 386 H Total Protein 7.8 Albumin 3.2 L Procalcitonin COVID-19 Source Not Applicable SARS-CoV-2 (PCR) Negative Influenza Type A (PCR) Negative Influenza Type B (PCR) Negative RSV (PCR) Negative Add-On Test Request 07/04/22 07/04/22 07/04/22 15:35 15:35 15:43 WBC RBC Hgb Hct MCV MCH MCHC RDW Plt Count MPV Immature Gran % Neutrophils % Lymphocytes % Monocytes % Eosinophils % Basophils % Nucleated RBC % Absolute Neutrophils Absolute Lymphocytes Absolute Monocytes Absolute Eosinophils Absolute Basophils VBG pH 7.26 L VBG pCO2 90 H* VBG pO2 101 VBG HCO3 41 H VBG Total CO2 43 H VBG O2 Saturation 96 VBG Base Excess 13 H Sodium Potassium Chloride Carbon Dioxide Anion Gap BUN Creatinine Est GFR (CKD-EPI 2020) Glucose Hemoglobin A1c Calcium Magnesium Total Bilirubin AST ALT Alkaline Phosphatase Troponin I NT-Pro-B Natriuret Pep Total Protein Albumin Procalcitonin < 0.1 COVID-19 Source SARS-CoV-2 (PCR) Influenza Type A (PCR) Influenza Type B (PCR) RSV (PCR) Add-On Test Request DONE 07/04/22 07/04/22 07/05/22 19: 06:25 WBC 11.11 H RBC 5.63 Hgb 14.5 Hct 49.6 MCV 88 MCH 25.8 L MCHC 29.2 L RDW 13.9 Plt Count 261 MPV 10.8 Immature Gran % 0.4 Neutrophils % 77.0 Lymphocytes % 10.4 Monocytes % 10.5 Eosinophils % 1.1 Basophils % 0.6 Nucleated RBC % 0.0 Absolute Neutrophils 8.55 H Absolute Lymphocytes 1.16 L Absolute Monocytes 1.17 H Absolute Eosinophils 0.12 Absolute Basophils 0.07 VBG pH VBG pCO2 VBG pO2 VBG HCO3 VBG Total CO2 VBG O2 Saturation VBG Base Excess Sodium 138 140 Potassium 4.1 4.0 Chloride 99 98 Carbon Dioxide 40.4 H 42.6 H Anion Gap -1.4 L -0.6 L BUN 11 12 Creatinine 0.7 0.7 Est GFR (CKD-EPI 2020) 108.82 108.82 Glucose 107 H 104 Hemoglobin A1c Calcium 8.2 L 8.4 L Magnesium 2.1 2.1 Total Bilirubin 0.6 AST 17 ALT 17 Alkaline Phosphatase 75 Troponin I < 50 NT-Pro-B Natriuret Pep Total Protein 7.5 Albumin 3.0 L Procalcitonin COVID-19 Source SARS-CoV-2 (PCR) Influenza Type A (PCR) Influenza Type B (PCR) RSV (PCR) Add-On Test Request 07/05/22 07/05/22 07/05/22 06:25 06:25 07:58 WBC 11.79 H RBC 5.73 Hgb 14.9 Hct 50.9 H MCV 89 MCH 26.0 L MCHC 29.3 L RDW 13.9 Plt Count 269 MPV 11.1 H Immature Gran % 0.3 Neutrophils % 80.6 Lymphocytes % 7.5 Monocytes % 10.0 Eosinophils % 1.1 Basophils % 0.5 Nucleated RBC % 0.0 Absolute Neutrophils 9.50 H Absolute Lymphocytes 0.88 L Absolute Monocytes 1.18 H Absolute Eosinophils 0.13 Absolute Basophils 0.06 VBG pH 7.24 L VBG pCO2 108 H* VBG pO2 55 VBG HCO3 46 H VBG Total CO2 49 H VBG O2 Saturation 79 VBG Base Excess 19 H Sodium Potassium Chloride Carbon Dioxide Anion Gap BUN Creatinine Est GFR (CKD-EPI 2020) Glucose Hemoglobin A1c 5.9 H Calcium Magnesium Total Bilirubin AST ALT Alkaline Phosphatase Troponin I NT-Pro-B Natriuret Pep Total Protein Albumin Procalcitonin COVID-19 Source SARS-CoV-2 (PCR) Influenza Type A (PCR) Influenza Type B (PCR) RSV (PCR) Add-On Test Request Objective Narrative Objective Narrative: Echo: Technically limited study Left ventricular size wall thickness and systolic function appear within the range of normal There is mitral annular calcification Right-sided chambers were not well visualized Right ventricular systolic pressure could not be estimated
--- NOTE | 2022-07-05 12:40 | TELEP.MEDREC ---
Date of service: 07/05/22 Time of Service: 12:40 Telepharmacy Home Med Rec Allergies Allergies: plums Adverse Reaction (Unknown, Uncoded 07/04/22 10:39) Additional Notes Additional Notes: Over night pharmacist contacted full charge bookkeeper on med surg floor. industrial relations specialist indicated the med rec had already been done and telepharmacy did not need to do it. Recommended Changes Attestation: The home medication list is now updated to the best of my knowledge and is ready to be reconciled by the provider. Please contact the TelePharmacy Medication Reconciliation Pharmacist at for any questions.
[2022-07-05 12:59] LABS: BE (Venous) 18 mmol/L (-2-3); HCO3 (Venous) 45 mmol/L (23-28); O2 Sat (Venous) 93 %; TCO2 (Venous) 48 mmol/l (24-29); pH (Venous) 7.27 (7.31-7.41); pO2 (Venous) 84 mmHg
[2022-07-05 13:01] LABS: pCO2 (Venous) 97 mmHg (41-51)
--- NOTE | 2022-07-05 13:18 | RESPIRATORY ---
Patient had a machine through [facility] was picked up in 2018. According to [employer] the Patient's settings from 12/06/2016 were AutoPAP 8-18.
[2022-07-05] MEDS: Furosemide 40 MG/4 ML VIAL IVP (13:50)
[2022-07-05] MEDS: Normal Saline Flush 10 ML SYR IVP ×2 (13:51→20:58)
[2022-07-05 14:29] LABS: BE (Venous) 20 mmol/L (-2-3); HCO3 (Venous) 47 mmol/L (23-28); O2 Sat (Venous) 96 %; TCO2 (Venous) 50 mmol/l (24-29); pH (Venous) 7.26 (7.31-7.41); pO2 (Venous) 103 mmHg
[2022-07-05 14:30] LABS: pCO2 (Venous) 103 mmHg (41-51)
[2022-07-05 14:46] LABS: Site Right Radial; pCO2 > 100 mmHg (35-45); pH 7.23 (7.35-7.45); pO2 104 mmHg (80-105); sO2 97 % (95-98)
--- NOTE | 2022-07-05 15:19 | NUR.NOTE ---
Around 1430. Eric LEON noted the patient to be more obtunded and barely arousable without following commands. RT and Dr. Pastrana notified and they came to the unit. Patient's co2 had increased slightly despite being on the BIPAP and his sp02 sat had maintained in the low to mid 90s on Bipap 18/8, 50%. Patient was found to have his head tilted downward while resting in the recliner. Dr Pastrana felt this obstruction while maintaining his sp02 sat was causing c02 retention and AMS. The patient was moved from the recliner back to the bed using the veto lift without incident. After repositioning, the patient began to wake up and once again could converse and answer questions. Dr. Pastrana plans to recheck his VBG around 1600 and see if he is clearing more. His sister Verena has been in the room and has been updated by nursing and Dr. Pastrana. All questions answered. Nursing Note:
[2022-07-05 15:20] LABS: HCO3 (Venous) 45 mmol/L (23-28); O2 Sat (Venous) 87 %; TCO2 (Venous) 40 mmol/L (24-29); pH (Venous) 7.29 (7.31-7.41); pO2 (Venous) 55 mmHg
[2022-07-05 15:21] LABS: BE (Venous) > 15 mmol/L (-2-3)
[2022-07-05 15:22] LABS: pCO2 (Venous) 95 mmHg (41-51)
[2022-07-05] MEDS: Lidocaine 2% Jelly 11 ML SYR UR (16:26)
[2022-07-05 17:01] LABS: HCO3 (Venous) 45 mmol/L (23-28); O2 Sat (Venous) 96 %; TCO2 (Venous) 40 mmol/L (24-29); pH (Venous) 7.34 (7.31-7.41); pO2 (Venous) 76 mmHg
[2022-07-05 17:12] LABS: BE (Venous) > 15 mmol/L (-2-3); pCO2 (Venous) 83 mmHg (41-51)
[2022-07-06] VITALS (31 sets, daily range): BP systolic 104–160; BP diastolic 68–117; PULSE 70–98; RESP 10–26; TEMP 36.3–37.7; O2SAT 89–98
[2022-07-06 05:36] LABS: HCO3 (Venous) 46 mmol/L (23-28); O2 Sat (Venous) 97 %; TCO2 (Venous) 40 mmol/L (24-29); pH (Venous) 7.36 (7.31-7.41); pO2 (Venous) 82 mmHg
[2022-07-06 05:37] LABS: Abs Immature Grans 0.02 10^3/uL (0.0-0.06); Absolute Basophil Count 0.05 10^3/uL (0.0-0.2); Absolute Eosinophil Count 0.09 10^3/uL (0.0-0.7); Absolute Lymphocyte Count 0.73 10^3/uL (1.2-3.4); Absolute Monocyte Count 0.97 10^3/uL (0.1-0.8); Absolute Neutrophil Count 8.33 10^3/uL (1.2-6.7); Basophils % 0.5; Eosinophils % 0.9; HCT 49.8 % (40.0-50.0); HGB 14.4 g/dL (13.5-17.5); Immature Grans % 0.2; Lymphocytes % 7.2; MCH 25.6 pg (27.0-33.0); MCHC 28.9 % (32.0-36.0); MCV 89 fL (80-95); Monocytes % 9.5; Neutrophils % 81.7; Platelet Count 248 10^3/uL (130-400); RBC 5.63 10^6/uL (4.36-5.78); RDW 13.7 % (11.8-14.1); RDW-SD 44.3 fL; WBC 10.19 10^3/uL (4.4-10.8)
[2022-07-06 05:38] LABS: BE (Venous) > 15 mmol/L (-2-3); pCO2 (Venous) 80 mmHg (41-51)
[2022-07-06 05:58] LABS: Anion Gap -3.1 mmol/L (3-11); BUN 15 mg/dL (7-18); CO2 44.1 mmol/L (21.0-32.0); CREATININE 0.6 mg/dL (0.70-1.30); Calcium 8.3 mg/dL (8.5-10.1); Chloride 97 mmol/L (98-107); Glucose 87 mg/dL (74-106); Magnesium 1.9 mg/dL (1.8-2.4); Potassium 3.9 mmol/L (3.5-5.1); Sodium 138 mmol/L (136-145)
[2022-07-06 08:04] LABS: HCO3 (Venous) 45 mmol/L (23-28); O2 Sat (Venous) 91 %; TCO2 (Venous) 40 mmol/L (24-29); pH (Venous) 7.36 (7.31-7.41); pO2 (Venous) 56 mmHg
[2022-07-06 08:08] LABS: pCO2 (Venous) 80 mmHg (41-51)
[2022-07-06 08:09] LABS: BE (Venous) > 15 mmol/L (-2-3)
[2022-07-06] MEDS: Normal Saline Flush 10 ML SYR IVP ×4 (08:49→20:13)
[2022-07-06] MEDS: Enoxaparin 60 MG/0.6 ML SYR SC ×2 (08:50→20:12)
[2022-07-06] MEDS: Furosemide 40 MG/4 ML VIAL IVP ×2 (08:51→16:30)
[2022-07-06] MEDS: Chlorthalidone 25 MG TAB PO (08:58)
[2022-07-06] MEDS: Escitalopram 20 MG TAB PO (08:58)
[2022-07-06] MEDS: Lisinopril 20 MG TAB 40 MG PO (08:58)
--- NOTE | 2022-07-06 08:59 | W.PM.PROGNOT ---
Date of Service Date of service: 07/06/22 Time of Service: 08:59 Assessment and Plan Assessment and plan (1) Acute on chronic respiratory failure with hypoxia and hypercapnia: Status: Acute Assessment and plan: In setting of known sleep apnea, obesity with BMI of 69.8 kg/m2, noncompliance with BiPAP. Suspect the patient has obesity hypoventilation syndrome. Doing much better post night on BiPAP. Adjusting settings according to his O2 sats. We are planning on trying to qualify him for a trilogy machine. Neo. Attempt taking off of BiPAP for a diet. (2) Toxic metabolic encephalopathy: Status: Resolved Assessment and plan: Due to CO2 retention/CO2 narcosis. Appears much more alert at this time. Cannot rule out longstanding hypoxic brain injury as well. Continue bipap, Diuresis and monitor mental status, as above (3) Respiratory acidosis: Status: Acute Assessment and plan: As above (4) Severe obstructive sleep apnea: Status: Chronic Assessment and plan: As above - BiPAP therapy here. The patient was on CPAP at home which is not appropriate given his ABG. He really would benefit from an AVAPS device. We will try to qualify him for this. (5) Lower extremity ulceration: Status: Acute Assessment and plan: Wound care consulted. (6) Morbid obesity with BMI of 60.0-69.9, adult: Status: Chronic Assessment and plan: Encourage weight loss. Intrusion Analyst consulted. (7) Depressive disorder: Status: Chronic Assessment and plan: Continue Escitalopram (8) Essential hypertension: Status: Chronic Assessment and plan: Continue Lisinopril (9) Prediabetes: Status: Chronic Assessment and plan: A1C 5.9. Continue sliding scale insulin. (10) DVT prophylaxis: Status: Acute Assessment and plan: Enoxaparin 60 mg SC BID (11) Discharge planning issues: Status: Acute Assessment and plan: Full code Keep in ICU. Total Critical Care Time 35 minutes. Palliative care consulted. Anticipate discharge home with a trilogy device. Subjective Subjective Interval history since last seen: Spent the night on BiPAP. Nursing does note that, even without apneic episodes, he desats as low as to the 70s on the 08/03 w/FiO2 of 30%. He continued to do the same on 03/12. We just changed the settings to 05/16 with O2 sats improving to 90-92%. Exam Narrative Exam Narrative: General: Obese male on BiPAP, A&Ox3 (knows it's June of 2022, does not know the exact date), wakes up easily, follows commands, appropriate HEENT: EOMI, MMM Heart: RRR Lungs: Diminished breath sounds B Abdomen: soft, nontender, obese, erythematous inferior portion of the abdomen c/w fungal infection, evidence of excoriations. Reddened skin folds. Extremities: 2+ pitting edema B, chronic venous stasis dermatitis Objective Last Vital Signs Temp 36.3 C L 07/06/22 04:00 Pulse 78 07/06/22 08:31 Resp 10 L 07/06/22 08:31 BP 141/80 H 07/06/22 08:01 Pulse Ox 93 07/06/22 08:31 Laboratory Results - last 24 hr 07/05/22 07/05/22 07/05/22 12:40 14:05 14:32 WBC RBC Hgb Hct MCV MCH MCHC RDW Plt Count MPV Immature Gran % Neutrophils % Lymphocytes % Monocytes % Eosinophils % Basophils % Nucleated RBC % Absolute Neutrophils Absolute Lymphocytes Absolute Monocytes Absolute Eosinophils Absolute Basophils ABG Sample Site Right Radial ABG pH 7.23 L ABG pCO2 > 100 H* ABG pO2 104 ABG HCO3 ABG Total CO2 ABG O2 Saturation 97 ABG Base Excess VBG pH 7.27 L 7.26 L VBG pCO2 97 H* 103 H* VBG pO2 84 103 VBG HCO3 45 H 47 H VBG Total CO2 48 H 50 H VBG O2 Saturation 93 96 VBG Base Excess 18 H 20 H Sodium Potassium Chloride Carbon Dioxide Anion Gap BUN Creatinine Est GFR (CKD-EPI 2020) Glucose Calcium Magnesium 07/05/22 07/05/22 07/06/22 15:16 16:54 05:25 WBC RBC Hgb Hct MCV MCH MCHC RDW Plt Count MPV Immature Gran % Neutrophils % Lymphocytes % Monocytes % Eosinophils % Basophils % Nucleated RBC % Absolute Neutrophils Absolute Lymphocytes Absolute Monocytes Absolute Eosinophils Absolute Basophils ABG Sample Site ABG pH ABG pCO2 ABG pO2 ABG HCO3 ABG Total CO2 ABG O2 Saturation ABG Base Excess VBG pH 7.29 L 7.34 VBG pCO2 95 H* 83 H* VBG pO2 55 76 VBG HCO3 45 H 45 H VBG Total CO2 40 H 40 H VBG O2 Saturation 87 96 VBG Base Excess > 15 H > 15 H Sodium 138 Potassium 3.9 Chloride 97 L Carbon Dioxide 44.1 H Anion Gap -3.1 L BUN 15 Creatinine 0.6 L Est GFR (CKD-EPI 2020) 114.00 Glucose 87 Calcium 8.3 L Magnesium 1.9 07/06/22 07/06/22 07/06/22 05:25 05:25 07:52 WBC 10.19 RBC 5.63 Hgb 14.4 Hct 49.8 MCV 89 MCH 25.6 L MCHC 28.9 L RDW 13.7 Plt Count 248 MPV 11.0 Immature Gran % 0.2 Neutrophils % 81.7 Lymphocytes % 7.2 Monocytes % 9.5 Eosinophils % 0.9 Basophils % 0.5 Nucleated RBC % 0.0 Absolute Neutrophils 8.33 H Absolute Lymphocytes 0.73 L Absolute Monocytes 0.97 H Absolute Eosinophils 0.09 Absolute Basophils 0.05 ABG Sample Site ABG pH ABG pCO2 ABG pO2 ABG HCO3 ABG Total CO2 ABG O2 Saturation ABG Base Excess VBG pH 7.36 7.36 VBG pCO2 80 H* 80 H* VBG pO2 82 56 VBG HCO3 46 H 45 H VBG Total CO2 40 H 40 H VBG O2 Saturation 97 91 VBG Base Excess > 15 H > 15 H Sodium Potassium Chloride Carbon Dioxide Anion Gap BUN Creatinine Est GFR (CKD-EPI 2020) Glucose Calcium Magnesium Multi-Disciplinary Checklist Lines/Tubes CENTRAL LINE: no ARTERIAL LINE: no KAUFFMAN: yes, Kauffman Day#: 1 Note: Inserted 07/05/22 ENDOTRACHEAL TUBE: no ICU Maintenance GLUCOSE 140-180mg/dL: no, Reason/Intervention: not diabetic NUTRITION AT GOAL: yes PRESSURE ULCER: no RESTRAINTS: no ANTIBIOTICS(if yes, consider Stewardship): No Social Issues FAMILY UPDATED: yes PT/OT: no, Reason/Intervention: not yet clinically ready GOALS/DISPOSITION/FINANCIAL SERVICES OFFICER: yes CODE STATUS: Full Prophylaxis DVT PROPHYLAXIS: yes GI PROPHYLAXIS: no
--- NOTE | 2022-07-06 09:30 | PDOC.CMPRO ---
- If Service Date Differs Date of service: 07/06/22 Time of Service: 09:30 Care Management Progress Note S/O:Aamir was sitting up in a chair in the ICU when CM met with him. He was agreeable to conversation but was reserved in his interactions. Aamir was much more awake today. Per nursing, he was able to wear his bipap all night. Aamir's provider is working with RT to try to get him qualified for a Trilogy machine. Aamir's sister Verena was visiting just before CM met with Aamir and offered to support any needs Aamir has. Contact information for her was obtained. A: Aamir is a 57 year old man admitted on 07/05/22 with acute hypoxic respiratory failure P:Anticipate Aamir will discharge home, possibly with new home health services, when medically cleared. He will follow up with community providers and plan of care and transport with his sister via private vehicle. CM will continue to support Aamir and assess for ongoing discharge concerns.
[2022-07-06] MEDS: Nystatin POWDER 60 GM JAR TP ×2 (14:41→20:15)
[2022-07-07] VITALS (25 sets, daily range): BP systolic 109–146; BP diastolic 63–83; PULSE 66–88; RESP 14–26; TEMP 35.7–37.6; O2SAT 90–95
[2022-07-07 05:57] LABS: Abs Immature Grans 0.03 10^3/uL (0.0-0.06); Absolute Basophil Count 0.04 10^3/uL (0.0-0.2); Absolute Eosinophil Count 0.13 10^3/uL (0.0-0.7); Absolute Lymphocyte Count 1.04 10^3/uL (1.2-3.4); Absolute Monocyte Count 1.13 10^3/uL (0.1-0.8); Absolute Neutrophil Count 6.46 10^3/uL (1.2-6.7); Basophils % 0.5; Eosinophils % 1.5; HCT 48.2 % (40.0-50.0); HGB 14.7 g/dL (13.5-17.5); Immature Grans % 0.3; Lymphocytes % 11.8; MCHC 30.5 % (32.0-36.0); MCV 85 fL (80-95); MPV 10.6 fL (8.0-11.0); Monocytes % 12.8; Neutrophils % 73.1; Platelet Count 273 10^3/uL (130-400); RBC 5.66 10^6/uL (4.36-5.78); RDW 13.9 % (11.8-14.1); RDW-SD 42.8 fL; WBC 8.83 10^3/uL (4.4-10.8)
[2022-07-07 06:04] LABS: BE (Venous) > 15 mmol/L (-2-3); HCO3 (Venous) 44 mmol/L (23-28); O2 Sat (Venous) 96 %; TCO2 (Venous) 38 mmol/L (24-29); pH (Venous) 7.47 (7.31-7.41); pO2 (Venous) 70 mmHg
[2022-07-07 06:09] LABS: pCO2 (Venous) 61 mmHg (41-51)
[2022-07-07 06:15] LABS: Anion Gap 2.1 mmol/L (3-11); BUN 21 mg/dL (7-18); CO2 41.9 mmol/L (21.0-32.0); CREATININE 0.7 mg/dL (0.70-1.30); Calcium 8.5 mg/dL (8.5-10.1); Chloride 93 mmol/L (98-107); Estimated GFR 108.82 (mL/min/1.73m2); Glucose 97 mg/dL (74-106); Magnesium 1.9 mg/dL (1.8-2.4); Potassium 3.4 mmol/L (3.5-5.1); Sodium 137 mmol/L (136-145)
[2022-07-07] MEDS: Chlorthalidone 25 MG TAB PO (07:52)
[2022-07-07] MEDS: Enoxaparin 60 MG/0.6 ML SYR SC ×2 (07:53→20:42)
[2022-07-07] MEDS: Furosemide 20 MG TAB PO (07:53)
[2022-07-07] MEDS: Lisinopril 20 MG TAB 40 MG PO (07:53)
[2022-07-07] MEDS: Escitalopram 20 MG TAB PO (07:53)
[2022-07-07] MEDS: Potassium Chloride 20 MEQ TABCR 40 MEQ PO (09:33)
[2022-07-07] MEDS: Nystatin POWDER 60 GM JAR TP ×3 (09:38→20:40)
--- NOTE | 2022-07-07 11:59 | NUR.NOTE ---
Patient remains up in chair and is set up with his lunch tray.Nursing Note:
--- NOTE | 2022-07-07 13:16 | W.PM.PROGNOT ---
Date of Service Date of service: 07/07/22 Time of Service: 13:16 Assessment and Plan Assessment and plan (1) Acute on chronic respiratory failure with hypoxia and hypercapnia: Status: Acute Assessment and plan: In setting of known sleep apnea, obesity with BMI of 69.8 kg/m2, noncompliance with BiPAP. I think this is obesity hypoventilation syndrome. Continue BiPAP QHS and with naps. Switch diuresis to PO. Begin process to qualify him for a trilogy machine. Ok to transfer out of the ICU. (2) Toxic metabolic encephalopathy: Status: Resolved Assessment and plan: Due to CO2 retention/CO2 narcosis. I think he is back to baseline this morning and doing markedly better. As above. (3) Respiratory acidosis: Status: Resolved Assessment and plan: As above (4) Severe obstructive sleep apnea: Status: Chronic Assessment and plan: As above - BiPAP therapy here. The patient was on CPAP at home which is not appropriate given his ABG. He really would benefit from an AVAPS device. We will try to qualify him for this. (5) Lower extremity ulceration: Status: Acute Assessment and plan: Wound care consulted. Will provide compression with tevin wraps (6) Morbid obesity with BMI of 60.0-69.9, adult: Status: Chronic Assessment and plan: Encourage weight loss. Implementation Coordinator consulted. (7) Depressive disorder: Status: Chronic Assessment and plan: Continue Escitalopram (8) Essential hypertension: Status: Chronic Assessment and plan: Continue Lisinopril (9) Prediabetes: Status: Chronic Assessment and plan: A1C 5.9. Continue sliding scale insulin. (10) DVT prophylaxis: Status: Acute Assessment and plan: Enoxaparin 60 mg SC BID (11) Discharge planning issues: Status: Acute Assessment and plan: Full code Transfer out of ICU. Palliative care consulted. Anticipate discharge home with a trilogy device. I do not think it would be safe for the patient to go home without an AVAPS device which would be life-saving in his situation. Subjective Subjective Interval history since last seen: Mr Briones is doing very well this morning. It's like I have a new set of lungs! He slept on the BiPAP. Denies a headache. States he still feels a little groggy. Denies dizziness, CP, SOB, n/v. States he slept well. We discussed that the CPAP is not adequate for him at this point and that we are going to be working on trying to qualify him for a trilogy. Exam Narrative Exam Narrative: General: Obese male on 2L of O2 by NC, sitting up in a chair, A&Ox3, NAD, having a very engaged coversation with me HEENT: EOMI, MMM Heart: RRR Lungs: Diminished breath sounds B Abdomen: soft, nontender, obese, erythematous inferior portion of the abdomen c/w fungal infection, evidence of excoriations. Reddened skin folds. Extremities: 2+ pitting edema B, chronic venous stasis dermatitis Objective Last Vital Signs Temp 37.6 C H 07/07/22 09:49 Pulse 81 07/07/22 09:49 Resp 18 07/07/22 09:49 BP 146/83 H 07/07/22 09:49 Pulse Ox 92 07/07/22 09:49 Laboratory Results - last 24 hr 07/07/22 07/07/22 07/07/22 05:45 05:45 05:45 WBC 8.83 RBC 5.66 Hgb 14.7 Hct 48.2 MCV 85 D MCH 26.0 L MCHC 30.5 L RDW 13.9 Plt Count 273 MPV 10.6 Immature Gran % 0.3 Neutrophils % 73.1 Lymphocytes % 11.8 Monocytes % 12.8 Eosinophils % 1.5 Basophils % 0.5 Nucleated RBC % 0.0 Absolute Neutrophils 6.46 Absolute Lymphocytes 1.04 L Absolute Monocytes 1.13 H Absolute Eosinophils 0.13 Absolute Basophils 0.04 VBG pH 7.47 H VBG pCO2 61 H* VBG pO2 70 VBG HCO3 44 H VBG Total CO2 38 H VBG O2 Saturation 96 VBG Base Excess > 15 H Sodium 137 Potassium 3.4 L Chloride 93 L Carbon Dioxide 41.9 H Anion Gap 2.1 L BUN 21 H Creatinine 0.7 Est GFR (CKD-EPI 2020) 108.82 Glucose 97 Calcium 8.5 Magnesium 1.9
[2022-07-08] VITALS (10 sets, daily range): BP systolic 121–146; BP diastolic 67–86; PULSE 73–93; RESP 12–26; TEMP 36.4–37.3; O2SAT 92–97
[2022-07-08 06:19] LABS: Abs Immature Grans 0.02 10^3/uL (0.0-0.06); Absolute Basophil Count 0.05 10^3/uL (0.0-0.2); Absolute Eosinophil Count 0.14 10^3/uL (0.0-0.7); Absolute Lymphocyte Count 0.84 10^3/uL (1.2-3.4); Absolute Monocyte Count 1.13 10^3/uL (0.1-0.8); Absolute Neutrophil Count 5.69 10^3/uL (1.2-6.7); Basophils % 0.6; Eosinophils % 1.8; HCT 48.2 % (40.0-50.0); HGB 15.2 g/dL (13.5-17.5); Immature Grans % 0.3; Lymphocytes % 10.7; MCH 26.5 pg (27.0-33.0); MCHC 31.5 % (32.0-36.0); MCV 84 fL (80-95); MPV 11.3 fL (8.0-11.0); Monocytes % 14.4; Neutrophils % 72.2; Platelet Count 266 10^3/uL (130-400); RBC 5.73 10^6/uL (4.36-5.78); RDW-SD 42.7 fL; WBC 7.87 10^3/uL (4.4-10.8)
[2022-07-08 06:29] LABS: Anion Gap 1.7 mmol/L (3-11); BUN 19 mg/dL (7-18); CO2 39.3 mmol/L (21.0-32.0); CREATININE 0.7 mg/dL (0.70-1.30); Calcium 8.4 mg/dL (8.5-10.1); Chloride 96 mmol/L (98-107); Estimated GFR 108.82 (mL/min/1.73m2); Glucose 92 mg/dL (74-106); Magnesium 2.1 mg/dL (1.8-2.4); Potassium 3.6 mmol/L (3.5-5.1); Sodium 137 mmol/L (136-145)
[2022-07-08] MEDS: Lisinopril 20 MG TAB 40 MG PO (08:40)
[2022-07-08] MEDS: Furosemide 20 MG TAB PO (08:40)
[2022-07-08] MEDS: Enoxaparin 60 MG/0.6 ML SYR SC ×2 (08:40→21:34)
[2022-07-08] MEDS: Chlorthalidone 25 MG TAB PO (08:40)
[2022-07-08] MEDS: Escitalopram 20 MG TAB PO (08:40)
--- NOTE | 2022-07-08 15:49 | PGE_ITS ---
Date of Service Date of service: 07/08/22 Time of Service: 15:49 Assessment and Plan Assessment and plan (1) Acute on chronic respiratory failure with hypoxia and hypercapnia: Status: Acute Assessment and plan: In setting of known sleep apnea, obesity with BMI of 69.8 kg/m2, noncompliance with BiPAP. Likely obesity hypoventilation syndrome. Continue BiPAP QHS and with naps. Switch diuresis to PO. Working to qualify him for a trilogy machine. (2) Toxic metabolic encephalopathy: Status: Resolved Assessment and plan: Due to CO2 retention/CO2 narcosis. Mentation has cleared. As above. (3) Respiratory acidosis: Status: Resolved Assessment and plan: As above (4) Severe obstructive sleep apnea: Status: Chronic Assessment and plan: As above - BiPAP therapy here. The patient was on CPAP at home which is not appropriate given his ABG. He susan lly would benefit from an AVAPS device. We will try to qualify him for this. (5) Lower extremity ulceration: Status: Acute Assessment and plan: Wound care consulted. Will provide compression with tevin wraps (6) Morbid obesity with BMI of 60.0-69.9, adult: Status: Chronic Assessment and plan: Encourage weight loss. Physician Surgeon consulted. (7) Depressive disorder: Status: Chronic Assessment and plan: Continue Escitalopram (8) Essential hypertension: Status: Chronic Assessment and plan: Continue Lisinopril (9) Prediabetes: Status: Chronic Assessment and plan: A1C 5.9. Continue sliding scale insulin. (10) DVT prophylaxis: Status: Acute Assessment and plan: Enoxaparin 60 mg SC BID (11) Discharge planning issues: Status: Acute Assessment and plan: Full code Palliative care consulted. Anticipate discharge home with a trilogy device. I do not think it would be safe for the patient to go home without an AVAPS device which would be life-saving in his situation. Subjective Subjective Patient reports: no new complaints, feels better, tolerating a regular diet and afebrile; denies nausea, vomiting or shortness of breath Interval history since last seen: Sleeping well with BiPAP Exam Narrative Exam Narrative: General: Obese male. No supplemental O2. sitting up in a chair, A&Ox3, NAD. Conversational. HEENT: EOMI, MMM Heart: RRR Lungs: Diminished breath sounds B. No increased WOB. Abdomen: soft, nontender, obese, erythematous inferior portion of the abdomen c/w fungal infection, evidence of excoriations. Reddened skin folds. Extremities: 1-2+ pitting edema B, chronic venous stasis dermatitis Objective Last Vital Signs Temp 37.2 C 07/08/22 15:05 Pulse 83 07/08/22 15:05 Resp 19 07/08/22 15:05 BP 126/67 07/08/22 15:05 Pulse Ox 94 07/08/22 15:05 Laboratory Results - last 24 hr 07/08/22 07/08/22 05:10 05:10 WBC 7.87 RBC 5.73 Hgb 15.2 Hct 48.2 MCV 84 MCH 26.5 L MCHC 31.5 L RDW 14.0 Plt Count 266 MPV 11.3 H Immature Gran % 0.3 Neutrophils % 72.2 Lymphocytes % 10.7 Monocytes % 14.4 Eosinophils % 1.8 Basophils % 0.6 Nucleated RBC % 0.0 Absolute Neutrophils 5.69 Absolute Lymphocytes 0.84 L Absolute Monocytes 1.13 H Absolute Eosinophils 0.14 Absolute Basophils 0.05 Sodium 137 Potassium 3.6 Chloride 96 L Carbon Dioxide 39.3 H Anion Gap 1.7 L BUN 19 H Creatinine 0.7 Est GFR (CKD-EPI 2020) 108.82 Glucose 92 Calcium 8.4 L Magnesium 2.1
[2022-07-08] MEDS: Nystatin POWDER 60 GM JAR TP (21:35)
[2022-07-08] MEDS: Normal Saline Flush 10 ML SYR IVP (21:35)
[2022-07-09] VITALS (11 sets, daily range): BP systolic 105–135; BP diastolic 62–85; PULSE 64–82; RESP 14–26; TEMP 36.1–37.2; O2SAT 92–98
[2022-07-09 06:08] LABS: Abs Immature Grans 0.02 10^3/uL (0.0-0.06); Absolute Basophil Count 0.07 10^3/uL (0.0-0.2); Absolute Lymphocyte Count 1.11 10^3/uL (1.2-3.4); Absolute Monocyte Count 1.04 10^3/uL (0.1-0.8); Absolute Neutrophil Count 5.07 10^3/uL (1.2-6.7); Basophils % 0.9; Eosinophils % 2.7; HCT 49.5 % (40.0-50.0); HGB 15.1 g/dL (13.5-17.5); Immature Grans % 0.3; Lymphocytes % 14.8; MCH 25.7 pg (27.0-33.0); MCHC 30.5 % (32.0-36.0); MCV 84 fL (80-95); MPV 11.1 fL (8.0-11.0); Monocytes % 13.8; Neutrophils % 67.5; Platelet Count 272 10^3/uL (130-400); RBC 5.88 10^6/uL (4.36-5.78); RDW 14.1 % (11.8-14.1); RDW-SD 42.9 fL; WBC 7.51 10^3/uL (4.4-10.8)
[2022-07-09 06:24] LABS: ALT 20 U/L (16-63); AST 22 U/L (15-37); Albumin 2.9 g/dL (3.4-5.0); Alkaline Phosphatase 63 U/L (46-116); Anion Gap 1.5 mmol/L (3-11); BUN 18 mg/dL (7-18); Bilirubin, Total 0.7 mg/dL (0.2-1.0); CO2 39.5 mmol/L (21.0-32.0); CREATININE 0.7 mg/dL (0.70-1.30); Calcium 8.5 mg/dL (8.5-10.1); Chloride 97 mmol/L (98-107); Estimated GFR 108.82 (mL/min/1.73m2); Glucose 99 mg/dL (74-106); Potassium 3.4 mmol/L (3.5-5.1); Sodium 138 mmol/L (136-145); Total Protein 7.2 g/dL (6.4-8.2)
[2022-07-09] MEDS: Lisinopril 20 MG TAB 40 MG PO (08:40)
[2022-07-09] MEDS: Furosemide 20 MG TAB PO (08:40)
[2022-07-09] MEDS: Chlorthalidone 25 MG TAB PO (08:41)
[2022-07-09] MEDS: Escitalopram 20 MG TAB PO (08:41)
--- NOTE | 2022-07-09 12:57 | W.NUTCONSULT ---
Date of service: 07/09/22 Time of Service: 12:57 Nutritional Consult ASSESSMENT: Met with Aamir today to discuss weight loss options and how to treat prediabetes with recent A1C of 5.9%. Provided information on outpatient resources and encouraged him to start outpatient weight loss counseling. Also provided information on [facility] bariatric program and encouraged him to sign up for a remote information session. 5'6 431 lbs BMI: 69 Has not pursued any diets seriously per patient. Reports eating mostly home cooked meals and avoids processed foods. Has gained over 200 lbs in last 20 years. HIs desired weight is 230 lbs. NUTRITIONAL DIAGNOSIS: morbid obesity with BMI of 69 INTERVENTION: provided information on bariatric surgery at [facility] provided information on weight loss diets that limit simple carbs, emphasis lean protein, complex carbs and healthy fats MONITORING AND EVALUATION: weight, po intake, labs Time Spent in Nutritional Counseling and Treatment: 20
--- NOTE | 2022-07-09 15:08 | PDOC.CMPRO ---
- If Service Date Differs Date of service: 07/09/22 Time of Service: 15:08 Care Management Progress Note S/O:Aamir was sitting up in a chair when CM met with him. He was agreeable to conversation and appeared to be in good spirits, however he admitted to being frustrated because he cannot be discharged. He is waiting for a determination about qualifying for a Trilogy machine. Per RT, the paperwork was not submitted last week so no progress has been made. Aamir will need a PFT which will be done today and an overnight oximetry test to determine his oxygen needs. It is hoped that the process can be completed within the next day or so. A: Aamir is a 57 year old man admitted on 07/05/22 with acute hypoxic respiratory failure P:Anticipate Aamir will discharge home, possibly with new home health services, when medically cleared. He is waiting for approval for a Trilogy machine as Cpap is not appropriate for his respiratory condition. Aamir will follow up with community providers and plan of care and transport with his sister via private vehicle. CM will continue to support Aamir and assess for ongoing discharge concerns.
--- NOTE | 2022-07-09 17:35 | W.PM.PROGNOT ---
Date of Service Date of service: 07/09/22 Time of Service: 17:41 Assessment and Plan Assessment and plan (1) Acute on chronic respiratory failure with hypoxia and hypercapnia: Status: Acute Assessment and plan: In setting of known sleep apnea, obesity with BMI of 69.8 kg/m2, noncompliance with BiPAP d/t intolerance. Likely obesity hypoventilation syndrome. Continue BiPAP QHS and with naps. Switch diuresis to PO. Working to qualify him for a noninvasive ventilatory device. It is medically necessary and beneficial that Jaydon receive NIV via the Astral Ventilator for treatment of his Chronic Respiratory Failure secondary to Obesity hypoventilation Syndrome with a suspected underlying SANDRA. A traditional Bi-pap or Avaps or Ivaps Bi-pap is not the most effective device its considered tried and failed the patient is maxing out the current device pressures during this current hospitalization ventilation is extremely uncomfortable but he is compliant with usage. 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 COPD is not a factor. The Astral modes are exclusive to only this device, Jaydon will utilizes IVAPS-AE as his primary ventilation mode during sleeping hours, this will treat his underlying conditions and have the benefits of a varying tidal volume, minute ventilation based on ideal body weight, decrease the work of breath, decreased co2 retention, increase oxygenation, reduce the effects of flow limitation, air trapping and breath stacking. Jaydon will also utilize a secondary mode of MPV via P(a)CV to help with shortness of breath in daytime hours with a ?sip and puff? technology. As a treating provider of this patient it is medically necessary that he use NIV via Astral therapy in his home. The Astral also operates on a battery which will allow for continuous usage up to 24 hrs daily this [place] out[place] could be frequent and problematic as an interruption in therapy could have life threatening consequences, he would also be able to take the ventilator with him for long trips to MD appointments etc (2) Toxic metabolic encephalopathy: Status: Resolved Assessment and plan: Due to CO2 retention/CO2 narcosis. Mentation has cleared after initiating BiPAP As above. (3) Respiratory acidosis: Status: Resolved Assessment and plan: As above (4) Severe obstructive sleep apnea: Status: Chronic Assessment and plan: As above - BiPAP therapy here. The patient was on CPAP at home which is not appropriate given his ABG. He really would benefit from an AVAPS device. We will try to qualify him for this. (5) Lower extremity ulceration: Status: Acute Assessment and plan: Wound care consulted. Will provide compression with tevin wraps (6) Morbid obesity with BMI of 60.0-69.9, adult: Status: Chronic Assessment and plan: Encourage weight loss. Manager Strategy & Account consulted. (7) Depressive disorder: Status: Chronic Assessment and plan: Continue Escitalopram (8) Essential hypertension: Status: Chronic Assessment and plan: Continue Lisinopril (9) Prediabetes: Status: Chronic Assessment and plan: A1C 5.9. Continue sliding scale insulin. (10) DVT prophylaxis: Status: Acute Assessment and plan: Enoxaparin 60 mg SC BID (11) Discharge planning issues: Status: Acute Assessment and plan: Full code Palliative care consulted. Anticipate discharge home with a AVAPS device. I do not think it would be safe for the patient to go home without an AVAPS device which would be life-saving in his situation. Subjective Subjective Patient reports: no new complaints, tolerating a regular diet and afebrile; denies shortness of breath Interval history since last seen: Tolerating BiPAP well. Exam Narrative Exam Narrative: General: Obese male. No supplemental O2. Lying in Bed. NAD HEENT: EOMI, MMM Heart: RRR Lungs: Diminished breath sounds B. No increased WOB. Abdomen: soft, nontender, obese, erythematous inferior portion of the abdomen c/w fungal infection, evidence of excoriations. Reddened skin folds. Extremities: 1-2+ pitting edema B, chronic venous stasis dermatitis Objective Last Vital Signs Temp 37.2 C 07/09/22 15:33 Pulse 70 07/09/22 15:33 Resp 19 07/09/22 15:33 BP 134/73 07/09/22 15:33 Pulse Ox 95 07/09/22 15:33 Laboratory Results - last 24 hr 07/09/22 07/09/22 05:28 05:28 WBC 7.51 RBC 5.88 H Hgb 15.1 Hct 49.5 MCV 84 MCH 25.7 L MCHC 30.5 L RDW 14.1 Plt Count 272 MPV 11.1 H Immature Gran % 0.3 Neutrophils % 67.5 Lymphocytes % 14.8 Monocytes % 13.8 Eosinophils % 2.7 Basophils % 0.9 Nucleated RBC % 0.0 Absolute Neutrophils 5.07 Absolute Lymphocytes 1.11 L Absolute Monocytes 1.04 H Absolute Eosinophils 0.20 Absolute Basophils 0.07 Sodium 138 Potassium 3.4 L Chloride 97 L Carbon Dioxide 39.5 H Anion Gap 1.5 L BUN 18 Creatinine 0.7 Est GFR (CKD-EPI 2020) 108.82 Glucose 99 Calcium 8.5 Total Bilirubin 0.7 AST 22 ALT 20 Alkaline Phosphatase 63 Total Protein 7.2 Albumin 2.9 L
[2022-07-09] MEDS: Nystatin POWDER 60 GM JAR TP (22:07)
[2022-07-10] VITALS (11 sets, daily range): BP systolic 117–127; BP diastolic 75–92; PULSE 70–82; RESP 17–26; TEMP 36.3–36.8; O2SAT 90–98
[2022-07-10] MEDS: Chlorthalidone 25 MG TAB PO (10:05)
[2022-07-10] MEDS: Lisinopril 20 MG TAB 40 MG PO (10:06)
[2022-07-10] MEDS: Nystatin POWDER 60 GM JAR TP (10:07)
[2022-07-10] MEDS: Furosemide 20 MG TAB PO (10:07)
[2022-07-10] MEDS: Escitalopram 20 MG TAB PO (10:09)
--- NOTE | 2022-07-10 12:22 | DSE_ITS ---
Date of service: 07/10/22 Time of Service: 12:23 DS: Diagnosis Discharge Diagnosis (1) Acute on chronic respiratory failure with hypoxia and hypercapnia: Status: Acute Asessment and Plan: In setting of known sleep apnea, obesity with BMI of 69.8 kg/m2, noncompliance with BiPAP d/t intolerance. Likely obesity hypoventilation syndrome. Dr Francisco is working? to qualify him for a noninvasive ventilatory device. (2) Toxic metabolic encephalopathy: Status: Resolved Asessment and Plan: Due to CO2 retention/CO2 narcosis. Mentation has cleared after initiating BiPAP As above. (3) Respiratory acidosis: Status: Resolved Asessment and Plan: Resolved. (4) Severe obstructive sleep apnea: Status: Chronic Asessment and Plan: he patient was on CPAP at home which is not appropriate given his ABG. He really would benefit from an AVAPS device. We will try to qualify him for this. (5) Lower extremity ulceration: Status: Acute Asessment and Plan: Wound care consulted. Will provide compression with tevin wraps (6) Morbid obesity with BMI of 60.0-69.9, adult: Status: Chronic (7) Depressive disorder: Status: Chronic Asessment and Plan: Continue Escitalopram (8) Essential hypertension: Status: Chronic Asessment and Plan: Continue Lisinopril (9) Prediabetes: Status: Chronic Asessment and Plan: A1C 5.9. Diet controlled. Followed by PCP Discharge Plan Disposition Patient Disposition: Home Condition: Good Discharge Details Reason For Visit: Acute Hypoxic Respiratory Failure, Suspected OHS Admit Date/Time: 07/04/22 15:35 Admit Provider: Angelique Pastrana Attending Provider: Angelique Pastrana Primary Care Provider: Juan Ramon UriasSanjeev Hospital Course Hospital Course: This is 57 year old?obese M with past medical history of depression, severe sleep apnea, essential hypertension and prediabetes, who presented to the [facility] with the complaint of feeling fatigued for 3 weeks.? He was found to have SPO2 on room air at the time, to the low 70s. He was sent? to the [facility] emergency department. ?Patient noted cough; denied chest pain, fever/chills and stated he did not have any shortness of breath.?He denied smoking or drug use and states he does not drink alcohol and has also stopped his intake of soda and is choosing a healthy diet.? All.? He was speaking in full sentences.? He was put on 4 L of oxygen by nasal cannula and his SPO2 increased to 95%.? He has clear lung sounds on the left with some diminished lung sounds right.? Has bilateral lower extremity edema for years and is unchanged 90 Tenderness.? In the emergency department his labs show pro BNP just over 3 negative troponin chest x-ray with cardiomegaly otherwise no acute finding.? He received a DuoNeb in the emergency department without much relief.? He had a CTA of the chest that was negative for PE. Of note received a COVID - 19 Bivalent vaccine, influenza vaccine and zoster vaccine on May 02, 2022.? Patient states he does not use BiPap as he should, he does not like it. He does have the head of the bed raised. ? He is admitted to the medical floor with BiPap. See Diagnosis F/U with PCP in 1-2 weeks. Home Meds and New Rx's Prescriptions: No Action chlorthalidone 25 mg tablet 25 mg PO DAILY Qty: 90 4RF Rx Instructions: Take 1 tablet a daily escitalopram oxalate 20 mg tablet 20 mg PO DAILY Qty: 90 3RF Rx Instructions: Take 1 tablet daily lisinopril 40 mg tablet 40 mg PO DAILY Qty: 90 4RF Rx Instructions: Take 1 tablet daily sildenafil [Viagra] 50 mg tablet 50 mg PO DAILY PRN (Reason: sexual activity) Qty: 60 4RF Rx Instructions: Take 1 tablet 1 hour before sexual activity; may be taken up to 4 hours before sexual activity furosemide 80 mg tablet 80 mg PO DAILY Qty: 90 3RF Discharge Instructions Instructions: Acute Respiratory Failure (GEN) Stand Alone Forms: Nursing Discharge Form Referrals: Sanjeev Brewer NP [Primary Care Provider] - 07/30/22 1:00 pm Activity:: Activity as Tolerated Equipment/Supplies:: No Equipment Needed Diet:: Resume usual home diet Discharge Orders Discharge Orders: Discharge Order (Routine); Ordered 07/10/22 Ordered By: Shankar Pollack Discharge Data Discharge Date/Time-TO BE ENTERED AT DEPARTURE: 07/10/22 14:34 DS: Summary Time Spent with Patient providing and/or coordinating discharge services: Greater than 30 minutes Status at Discharge Functional status at discharge: independent ambulation Overall status at discharge: patient is back to baseline Mental Status: mental status grossly normal Speech and Movement: speech and movement normal Mood: congruent mood Affect: normal affect Exam Narrative Exam Narrative: General: Obese male. No supplemental O2. Sitting in recliner. NAD HEENT: EOMI, MMM Heart: RRR Lungs: Diminished breath sounds B. No increased WOB. Abdomen: soft, nontender, obese. Extremities: 1-2+ pitting edema B, chronic venous stasis dermatitis Psych Mental Status: mental status grossly normal Speech and Movement: speech and movement normal Mood: congruent mood Affect: normal affect DS: Data Vitals/I&O Vitals and I&O: Vital Signs Temperature 36.8 C 07/10/22 11:42 Temperature Source Tympanic 07/10/22 11:42 Pulse 82 07/10/22 11:42 Pulse Rhythm Regular 07/10/22 00:00 Pulse 80 07/07/22 16:00 Respiratory Rate 18 07/10/22 11:42 Respiratory Effort Labored 07/10/22 00:00 Respiratory Depth Deep 07/10/22 00:00 Respiratory Pattern Irregular 07/10/22 00:00 Blood Pressure 117/75 07/10/22 11:42 Blood Pressure Mean 104 07/07/22 09:49 Blood Pressure Position Sitting 07/07/22 09:49 Pulse Oximetry 90 L 07/10/22 11:42 Oxygen Delivery Method Room Air 07/10/22 11:42 Oxygen Flow Rate 0 07/10/22 11:42 Fraction of Inspired Oxygen (FIO2) 30 07/10/22 08:05 Pain Level 0 07/10/22 11:42 Comment 07/10/22 11:42 Intake & Output 07/09/22 07/10/22 07/10/22 23:59 11:59 23:59 Intake Total 450 / 910 240 / 240 Balance 450 / 410 240 / 240 Weight 175.8 kg Intake: Oral 450 / 890 240 / 240 Other: Urine Appearance Clear Clear Comment pt voided independently pt voiding independently PFSH All Active Problems Essential hypertension (Chronic) Chewing tobacco use (Chronic) Severe obstructive sleep apnea (Chronic) Original PSG 12/02/16; BIPAP Prediabetes (Chronic) Depressive disorder (Chronic) Insomnia (Chronic) Morbid obesity with BMI of 60.0-69.9, adult (Chronic) Lower extremity ulceration (Acute) Acute on chronic respiratory failure with hypoxia and hypercapnia (Acute) Venous stasis dermatitis (Acute) Dyspnea (Acute) Weight gain with edema (Acute) Medical History Hyperlipidemia Surgical History H/O umbilical hernia repair (05/26/14) S/P appendectomy S/P colonoscopy (12/14/16) Family History Mother , at 70 from metastatic breast cancer Essential hypertension Metastatic breast cancer Type 2 diabetes mellitus Father No problems noted. Sister Depression Maternal Grandfather Heart disease Lung cancer Maternal Grandmother COPD with emphysema Paternal Grandfather No problems noted. Paternal Grandmother No problems noted. 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 Pets and animals: No Sexually active: Yes Do you think of yourself as: straight/heterosexual Current gender identity: male What is your relationship status?: How often do you talk on the phone with friends or family?: three or more times per week How often do you get together with friends or relatives?: three or more times per week How often do you attend jehovah's witness or congregation services?: decline to answer Do you belong to any clubs or organized social groups?: decline to answer Panel score (0-1 are the most socially isolated patients): 1 What type of physical activity do you participate in: walking Duration: 15-30 minutes/day Frequency: daily Kay/Gnosticism: none Special kay needs: No Seatbelt use: never Helmet use: Yes Helmet use: always Drive intox or ride w/intox warehouse driver: No Do you feel safe in your relationship?: Yes
--- NOTE | 2022-07-10 16:10 | PDOC.CMDIS ---
- If Service Date Differs Date of service: 07/10/22 Time of Service: 16:11 LACE Index Scoring Tool - Questions: Length of Stay (in days): 4 - 6 Acuity (Admit via E.D.?): Yes Comorbidities: Chronic Pulmonary Disease E.D. Visits: 1 - Answers: Total Score: 10 Risk of Readmission: High Risk Care Management Discharge Reason for Hospitalization: reespiratory failure Discharge Plan: Aamir will discharge home with a new Trilogy-type of respiratory device. He will follow up with community providers and plan of care and transport with his sister. Patient/Family Education Needs: Review of discharge instructions, limitations, activity, medications, follow up plan, Ask Me Three
--- NOTE | 2022-07-24 10:23 | W.PFT ---
Date of service: 07/09/22 Time of Service: 22:08 Pulmonary Function Test Result Requesting Provider Shankar Pollack Indications: Concern for OHS Note: Overnight Oximetry Amount of time analyzed: 9 hours, 37 minutes on BiPAP /, room air Number of minutes under 88%: 146 minutes JAMISON: 24.7 Appearance of oxygen saturation pattern: Sudden decreases in SpO2 pattern indicative of sleep apnea. Recommendation: Recommend a sleep study to assess efficacy of BiPAP and consideration of AVAPS ventilation if clinically indicated Zoraida Francisco MD Pulmonary & Critical Care Medicine Clinical Correlation therefore is recommended.
--- NOTE | 2022-07-24 10:28 | W.PFT ---
Date of service: 07/09/22 Time of Service: 15:55 Pulmonary Function Test Result Requesting Provider Shankar Pollack Indications: Home ventilator qualification Interpretation Spirometry: There is no airflow limitation. There is restrictive appearing spirometry Impression Restrictive spirometry. This may be pseudo-restriction due to morbid obesity, but a true restrictive lung disease can not be ruled out. Would recommend full PFT's with lung volume testing to assess for a restrictive lung disease. Clinical Correlation therefore is recommended.
== END 2022-07-10 14:34 | disposition home or self-care (01) | DRG 189 ==
LOC: ER 15:24 → MS 17:06 → ICU 07-05 12:44 → MS 07-07 17:48
PROVIDERS: Family Medicine; Nurse Practitioner Family; Admitting Provider Internal Medicine; Emergency Provider Emergency Medicine; PCP Nurse Practitioner Family; Visit Provider Internal Medicine
DX: J96.21 Acute and chronic respiratory failure with hypoxia (principal); G92.8 Other toxic encephalopathy; E87.29 Other acidosis; Z68.44 Body mass index [BMI] 60.0-69.9, adult; J96.22 Acute and chronic respiratory failure with hypercapnia; F32.A Depression, unspecified; R73.03 Prediabetes; I10 Essential (primary) hypertension; F17.290 Nicotine dependence, other tobacco product, uncomplicated; E66.01 Morbid (severe) obesity due to excess calories; G47.33 Obstructive sleep apnea (adult) (pediatric); I87.2 Venous insufficiency (chronic) (peripheral)
CPT/HCPCS: 36415; 71275; 80048; 80053; 82805; 84145; 87637; 93005; 94640; 99285; 71045; 83036; 83735; 83880; 84484; 85025; 93010; 93306; 94010; 94660; 94760; 94762; 99222; 99232; 99233; 99291; J1650; J1940; J3490; J7620

== ENCOUNTER 2022-08-20 03:05 | Outpatient (CLI) | payer MEDICAID, SELFPAY ==
[2022-08-20] MEDS: Inhaler, Assist Device 1 EACH MC (09:07)
[2022-08-20] MEDS: Albuterol HFA 18 GM 200 PUFF INH IH (09:07)
--- NOTE | 2022-08-20 15:37 | W.PFT ---
Date of service: 08/20/22 Time of Service: 08:03 Pulmonary Function Test Result Requesting Provider Sanjeev Urias Indications: Respiratory failure Interpretation Spirometry: There is no airflow limitation. There is no significant bronchodilator response (only 11%) but there was a 357cc increase in FVC with bronchodilator therapy. The FVC is low, but improve to normal with bronchodilator therapy. Lung Volumes: There is air trapping, but otherwise normal volumes. Diffusion Capacity: Normal diffusion. Airway Pressure: Normal airways resistance. Impression No airflow limitation, but air trapping is present. This could represent asthma in the correct clinical scenario. Note: When compared to 07/09/22, the FEV1 and FVC are significantly improved. Clinical Correlation therefore is recommended.
== END 2022-08-20 03:06 | disposition home or self-care (01) ==
LOC: RT 03:05
PROVIDERS: PCP Nurse Practitioner Family; Visit Provider Nurse Practitioner Family
DX: R94.2 Abnormal results of pulmonary function studies (principal); J96.21 Acute and chronic respiratory failure with hypoxia; E66.01 Morbid (severe) obesity due to excess calories; G47.33 Obstructive sleep apnea (adult) (pediatric)
CPT/HCPCS: 94060; 94726; 94729

== ENCOUNTER 2022-09-18 11:30 | Outpatient (CLI) | payer MEDICAID, SELFPAY ==
--- NOTE | 2022-09-18 11:00 | DI.RAD_ITS ---
Exam(s) XR CHEST 2V PA LATERAL EXAM: XR CHEST 2V PA LATERAL CLINICAL HISTORY: worsening WEIGHT GAIN R63.5 EDEMA R60.9. TECHNIQUE: 2D digital imaging was performed. COMPARISON: CR XR PORTABLE CHEST AP from 07/04/[address] CHEST PE CTA from 07/04/2022 FINDINGS: 2 views: Heart size is upper normal. The mediastinum is not widened. Lungs are clear. No infiltrates nor pleural effusions. IMPRESSION: No acute pulmonary findings. DATA REPOSITORY: RADIATION DOSE DELIVERED:
== END 2022-09-18 11:50 ==
LOC: DI 11:31
PROVIDERS: PCP Nurse Practitioner Family; Visit Provider Nurse Practitioner Family
DX: R60.9 Edema, unspecified (principal); R63.5 Abnormal weight gain
CPT/HCPCS: 71046

== ENCOUNTER 2022-09-18 21:31 | Outpatient (REF) | payer MEDICAID, SELFPAY ==
[2022-09-18 22:05] LABS: Anion Gap 3.1 mmol/L (3-11); BUN 13 mg/dL (7-18); CO2 38.9 mmol/L (21.0-32.0); CREATININE 0.7 mg/dL (0.70-1.30); Calcium 9.2 mg/dL (8.5-10.1); Calculated LDL 142 mg/dL (<100); Chloride 98 mmol/L (98-107); Cholesterol 209 mg/dL (<200); Estimated GFR 108.82 (mL/min/1.73m2); Glucose 84 mg/dL (74-106); HDL Cholesterol 50 mg/dL (40-60); Potassium 4.5 mmol/L (3.5-5.1); Sodium 140 mmol/L (136-145); TSH (W/Ref FT4) 1.06 uIU/mL (0.36-3.74); Triglyceride 85 mg/dL (<150)
[2022-09-18 22:27] LABS: NT-proBNP 36 pg/mL (<300)
== END 2022-09-18 21:32 | disposition home or self-care (01) ==
LOC: LBN 21:31
PROVIDERS: PCP Nurse Practitioner Family; Visit Provider Nurse Practitioner Family
DX: I10 Essential (primary) hypertension (principal); R63.5 Abnormal weight gain; R60.0 Localized edema; R06.09 Other forms of dyspnea; G47.33 Obstructive sleep apnea (adult) (pediatric)
CPT/HCPCS: 80048; 80061; 83880; 84443

== ENCOUNTER 2022-09-25 22:28 | Outpatient (REF) | payer MEDICAID, SELFPAY ==
[2022-09-25 22:52] LABS: Anion Gap 4.9 mmol/L (3-11); BUN 8 mg/dL (7-18); CO2 36.1 mmol/L (21.0-32.0); CREATININE 0.7 mg/dL (0.70-1.30); Calcium 9.2 mg/dL (8.5-10.1); Chloride 98 mmol/L (98-107); Estimated GFR 108.82 (mL/min/1.73m2); Glucose 98 mg/dL (74-106); Sodium 139 mmol/L (136-145)
== END 2022-09-25 22:29 | disposition home or self-care (01) ==
LOC: LBN 22:28
PROVIDERS: PCP Nurse Practitioner Family; Visit Provider Nurse Practitioner Family
DX: R63.5 Abnormal weight gain (principal); R60.0 Localized edema
CPT/HCPCS: 80048

== ENCOUNTER 2022-10-30 20:38 | Outpatient (REF) | payer MEDICAID, SELFPAY ==
[2022-10-30 20:52] LABS: Anion Gap 3.2 mmol/L (3-11); BUN 8 mg/dL (7-18); CO2 37.8 mmol/L (21.0-32.0); CREATININE 0.8 mg/dL (0.70-1.30); Chloride 96 mmol/L (98-107); Estimated GFR 104.51 (mL/min/1.73m2); Glucose 95 mg/dL (74-106); Potassium 3.7 mmol/L (3.5-5.1); Sodium 137 mmol/L (136-145)
== END 2022-10-30 20:39 | disposition home or self-care (01) ==
LOC: LBN 20:38
PROVIDERS: PCP Nurse Practitioner Family; Visit Provider Nurse Practitioner Family
DX: R63.5 Abnormal weight gain (principal); R06.09 Other forms of dyspnea; R60.0 Localized edema
CPT/HCPCS: 80048

== ENCOUNTER 2022-11-06 21:16 | Outpatient (REF) | payer MEDICAID, SELFPAY ==
[2022-11-06 21:25] LABS: HCT 46.3 % (40.0-50.0); HGB 15.2 g/dL (13.5-17.5); MCH 27.9 pg (27.0-33.0); MCHC 32.8 % (32.0-36.0); MCV 85 fL (80-95); MPV 11.6 fL (8.0-11.0); Platelet Count 304 10^3/uL (130-400); RBC 5.45 10^6/uL (4.36-5.78); RDW 14.9 % (11.8-14.1); RDW-SD 45.9 fL; WBC 9.83 10^3/uL (4.4-10.8)
[2022-11-06 21:32] LABS: Anion Gap 2.9 mmol/L (3-11); BUN 11 mg/dL (7-18); CO2 37.1 mmol/L (21.0-32.0); CREATININE 0.8 mg/dL (0.70-1.30); Calcium 8.7 mg/dL (8.5-10.1); Chloride 96 mmol/L (98-107); Estimated GFR 104.51 (mL/min/1.73m2); Glucose 92 mg/dL (74-106); Potassium 3.7 mmol/L (3.5-5.1); Sodium 136 mmol/L (136-145)
== END 2022-11-06 21:17 | disposition home or self-care (01) ==
LOC: LBN 21:16
PROVIDERS: PCP Nurse Practitioner Family; Visit Provider Nurse Practitioner Family
DX: R63.5 Abnormal weight gain (principal); R06.09 Other forms of dyspnea; R60.0 Localized edema
CPT/HCPCS: 80048; 85027

== ENCOUNTER 2022-11-16 11:07 | Outpatient (REF) | payer MEDICAID, SELFPAY ==
[2022-11-16 13:53] LABS: Anion Gap 2.8 mmol/L (3-11); CO2 37.2 mmol/L (21.0-32.0); Chloride 98 mmol/L (98-107); Sodium 138 mmol/L (136-145)
== END 2022-11-16 11:08 | disposition home or self-care (01) ==
LOC: LBN 11:07
PROVIDERS: PCP Nurse Practitioner Family; Visit Provider Nurse Practitioner Family
DX: E87.1 Hypo-osmolality and hyponatremia (principal)
CPT/HCPCS: 80051

== ENCOUNTER 2022-11-27 18:13 | Outpatient (CLI) | payer MEDICAID, SELFPAY ==
--- NOTE | 2022-11-27 18:00 | RT.EKG_ITS ---
APPROVED REPORT Exam: Resting ECG Reason for Exam: HTN Patient Location: O HR:88 bpm ECG Measurements Heart Rate 88 AXIS NH 161 P 30 QRSd 110 QRS 60 QT 369 T 3 QTc 447 Conclusion Sinus rhythm...normal P axis, V-rate 50- 99 Probable left atrial enlargement...P >50mS, <-0.10mV V1 Low voltage, precordial leads...precordial leads <1.0mV
== END 2022-11-27 18:14 | disposition home or self-care (01) ==
LOC: DI.CM 18:15
PROVIDERS: PCP Nurse Practitioner Family; Visit Provider Nurse Practitioner Family
DX: I10 Essential (primary) hypertension (principal)
CPT/HCPCS: 93010

== ENCOUNTER 2022-11-27 21:17 | Outpatient (REF) | payer MEDICAID, SELFPAY ==
[2022-11-27 21:54] LABS: Anion Gap 4.1 mmol/L (3-11); BUN 12 mg/dL (7-18); CO2 37.9 mmol/L (21.0-32.0); CREATININE 0.9 mg/dL (0.70-1.30); Chloride 95 mmol/L (98-107); Estimated GFR 100.86 (mL/min/1.73m2); Glucose 87 mg/dL (74-106); Potassium 3.8 mmol/L (3.5-5.1); Sodium 137 mmol/L (136-145)
== END 2022-11-27 21:18 | disposition home or self-care (01) ==
LOC: LBN 21:17
PROVIDERS: PCP Nurse Practitioner Family; Visit Provider Nurse Practitioner Family
DX: I10 Essential (primary) hypertension (principal)
CPT/HCPCS: 80048

== ENCOUNTER 2022-12-24 03:45 | Outpatient (CLI) | payer MEDICAID, SELFPAY ==
[2022-12-24 09:23] LABS: BE 12 mmol/L (-2-3); HCO3 36 mmol/L (22-26); pCO2 58 mmHg (35-45); pO2 66 mmHg (80-105); sO2 95 % (95-98); tCO2 32 mmol/L (23-27)
[2022-12-24 09:26] LABS: FIO2L ROOM AIR L; Site Left Radial
== END 2022-12-24 03:46 | disposition home or self-care (01) ==
LOC: RT 03:45
PROVIDERS: PCP Nurse Practitioner Family; Visit Provider Student in an Organized Health Care Education/Training Program
DX: E66.2 Morbid (severe) obesity with alveolar hypoventilation (principal); G47.33 Obstructive sleep apnea (adult) (pediatric); J96.01 Acute respiratory failure with hypoxia; J96.02 Acute respiratory failure with hypercapnia
CPT/HCPCS: 82805; 36600

== ENCOUNTER 2023-01-01 11:19 | Outpatient (CLI) | payer MEDICAID, SELFPAY ==
--- NOTE | 2023-01-01 11:15 | RT.EKG_ITS ---
APPROVED REPORT Exam: Resting ECG Reason for Exam: CHF Patient Location: O HR:80 bpm ECG Measurements Heart Rate 80 AXIS FL 177 P 28 QRSd 111 QRS 47 QT 383 T 27 QTc 442 Conclusion Sinus rhythm...normal P axis, V-rate 50- 99 Normal Electrocardiogram Baseline wander in lead(s) II,III,aVR,aVF,V3,V4,V5,V6
== END 2023-01-01 11:20 | disposition home or self-care (01) ==
LOC: DI.CARD 11:19
PROVIDERS: PCP Nurse Practitioner Family; Visit Provider Internal Medicine Cardiovascular Disease
DX: I50.22 Chronic systolic (congestive) heart failure (principal)
CPT/HCPCS: 93010

== ENCOUNTER 2023-02-01 11:13 | Outpatient (REF) | payer MEDICAID, SELFPAY ==
[2023-02-01 12:38] LABS: Anion Gap 5.1 mmol/L (3-11); BUN 11 mg/dL (7-18); CO2 35.9 mmol/L (21.0-32.0); CREATININE 0.9 mg/dL (0.70-1.30); Calcium 8.8 mg/dL (8.5-10.1); Chloride 95 mmol/L (98-107); Estimated GFR 100.86 (mL/min/1.73m2); Glucose 115 mg/dL (74-106); NT-proBNP 20 pg/mL (<300); Potassium 3.8 mmol/L (3.5-5.1); Sodium 136 mmol/L (136-145)
== END 2023-02-01 11:14 | disposition home or self-care (01) ==
LOC: LBN 11:13
PROVIDERS: PCP Nurse Practitioner Family; Visit Provider Nurse Practitioner Family
DX: I10 Essential (primary) hypertension (principal); I50.30 Unspecified diastolic (congestive) heart failure
CPT/HCPCS: 80048; 83880

== ENCOUNTER 2023-02-18 15:37 | Emergency (ER) | payer MEDICAID, SELFPAY ==
[2023-02-18 15:43] VITALS: BP 125/91; PULSE 88; RESP 18; TEMP 36.8; O2SAT 95
--- NOTE | 2023-02-18 17:50 | W.ED.GENAD ---
Discharge Plan Disposition Patient Disposition: Home Discharge Details Clinical Impression: Pain in rectum Primary Care Provider: Sanjeev Brewer ED Provider: Colby Segovia Home Meds and New Rx's Prescriptions: New Proctofoam HC 1-1 % foam [address] QID PRN (Reason: hemorrhoids) Qty: 10 1RF Continued escitalopram oxalate 20 mg tablet 20 mg PO DAILY Qty: 90 3RF Rx Instructions: Take 1 tablet daily lisinopril 40 mg tablet 40 mg PO DAILY Qty: 90 4RF Rx Instructions: Take 1 tablet daily sildenafil [Viagra] 50 mg tablet 50 mg PO DAILY PRN (Reason: sexual activity) Qty: 60 4RF Rx Instructions: Take 1 tablet 1 hour before sexual activity; may be taken up to 4 hours before sexual activity metolazone 2.5 mg tablet 2.5 mg PO .q MWF Qty: 90 2RF Rx Instructions: take 30 mins before lasix fluticasone propion-salmeterol [Advair HFA] 230-21 mcg/actuation HFA aerosol inhaler 2 puff inhalation BID Qty: 12 12RF (DME) Oxygen Tank See Rx Instructions .Route Qty: 99 0RF Rx Instructions: 1LPM as needed with exertion or rest albuterol sulfate 90 mcg/actuation HFA aerosol inhaler 2 inh inhalation Q4H PRN (Reason: shortness of breath or wheezing) Qty: 18 1RF furosemide 80 mg tablet 80 mg PO BID Qty: 180 3RF mirtazapine 15 mg tablet 15 mg PO DAILY Qty: 30 0RF Rx Instructions: Take 1/2 a tab (7.5mg) for the first week. Increase to 1 tab (15mg). albuterol sulfate 2.5 mg/0.5 mL solution for nebulization 2.5 mg inhalation Q4H Qty: 100 4RF Rx Instructions: for up to 3 doses Discontinued chlorthalidone 25 mg tablet 25 mg PO DAILY Qty: 90 4RF Patient Comments: pt states not taking anymore 02/18/23 Rx Instructions: Take 1 tablet a daily Discharge Instructions Instructions: Hemorrhoids (ED) Additional Instructions: At this time we are not able to visualize a hemorrhoid that we could manage in the emergency department but we have placed a referral to follow-up with general surgery. Please use the foam to help with pain and discomfort. Please use the provided narcotics sparingly and only for severe pain only. Feel free to return the emergency department for any new or significant worsening of symptoms. Referrals: [facility] [Provider Group] - 5 days (Please call the office tomorrow afternoon for arrangement of follow-up appointment) Discharge Data Discharge Date/Time-TO BE ENTERED AT DEPARTURE: 02/18/23 18:20 Medical Decision Making Patient presenting the emergency department for chief complaint of rectal pain and discomfort. Patient states that he has had thrombosed hemorrhoids in the past which she has needed to have an excision and removal due to the pain and discomfort. He states over the past couple days he has had increased pain and discomfort causing difficulty sleeping. Pain got so severe today that he started having some tremors and shaking in his hands. He initially thought it was low oxygen but then realized it was more when he had the pain response. Patient denies any shortness of breath chest pain or difficulty breathing compared to baseline. Physical exam shows unremarkable external rectum with no external thrombosed hemorrhoids noted. Patient was tender to exam so I suspect internal hemorrhoids causing his pain discomfort. Patient denies any bleeding. Given inability to facilitate with internal hemorrhoids patient was given Proctofoam and limited supply of narcotics due to him stating severe pain and discomfort. Patient placed on referral list to follow-up with general surgery for more definitive care of suspected internal hemorrhoids. After discussion of diagnosis and plan of care patient has no further needs, questions, or concerns and states clear understanding to return to the emergency department for any worsening symptoms. This documentation was generated using [employer] dictation system, please disregard any oddities of phrase or misspellings. HPI General Mode of arrival: ambulatory. Date/Time Provider Initiated Documentation: 02/18/23 16:25. Limitations to Documentation: no limitations. Information obtained by: patient and RN notes reviewed. History of Present Illness 57 year old M presents to the emergency department with the chief complaint of Rectal pain and discomfort, described as moderate and similar to prior episodes, Quality is described as burning and sharp, and is localized to the buttocks. Patient reports no radiation. Patient started experiencing this day(s) and it has been intermittent. No relieving factors improve symptom(s), No exacerbating factors reported . Patient notes other (Shaking and tremors with severe pain). Patient did receive the following treatments prior to arrival, none Related Data Home Medications Medication Instructions Recorded Confirmed escitalopram oxalate 20 mg tablet 20 mg PO DAILY #90 tabs 09/18/22 02/18/23 lisinopril 40 mg tablet 40 mg PO DAILY #90 tabs 09/18/22 02/18/23 sildenafil 50 mg tablet (Viagra) 50 mg PO DAILY PRN sexual activity 09/18/22 02/18/23 #60 tabs albuterol sulfate 90 mcg/actuation 2 inh inhalation Q4H PRN shortness 11/16/22 02/18/23 aerosol inhaler of breath or wheezing #18 grams Oxygen #99 ea 12/21/22 02/01/23 fluticasone propionate 230 2 puff inhalation BID #12 grams 12/21/22 02/18/23 mcg-salmeterol 21 mcg/actuation HFA inhaler (Advair HFA) furosemide 80 mg tablet 80 mg PO BID #180 tabs 01/01/23 02/18/23 metolazone 2.5 mg tablet 2.5 mg PO .q MWF #90 tabs 01/29/23 02/18/23 albuterol sulfate 2.5 mg/0.5 mL 2.5 mg (0.5 mL) inhalation Q4H 02/01/23 02/18/23 solution for nebulization #100 ea mirtazapine 15 mg tablet 15 mg PO DAILY #30 tabs 02/01/23 02/18/23 hydrocortisone 1 %-pramoxine 1 % [address] QID PRN hemorrhoids 02/18/23 rectal foam (Proctofoam HC) #10 grams Previous Rx's Medication Instructions Recorded escitalopram oxalate 20 mg tablet 20 mg PO DAILY #90 tabs 09/18/22 lisinopril 40 mg tablet 40 mg PO DAILY #90 tabs 09/18/22 sildenafil 50 mg tablet (Viagra) 50 mg PO DAILY PRN sexual activity 09/18/22 #60 tabs albuterol sulfate 90 mcg/actuation 2 inh inhalation Q4H PRN shortness 11/16/22 aerosol inhaler of breath or wheezing #18 grams Oxygen #99 ea 12/21/22 fluticasone propionate 230 2 puff inhalation BID #12 grams 12/21/22 mcg-salmeterol 21 mcg/actuation HFA inhaler (Advair HFA) furosemide 80 mg tablet 80 mg PO BID #180 tabs 01/01/23 metolazone 2.5 mg tablet 2.5 mg PO .q MWF #90 tabs 01/29/23 albuterol sulfate 2.5 mg/0.5 mL 2.5 mg (0.5 mL) inhalation Q4H 02/01/23 solution for nebulization #100 ea mirtazapine 15 mg tablet 15 mg PO DAILY #30 tabs 02/01/23 hydrocortisone 1 %-pramoxine 1 % [address] QID PRN hemorrhoids 02/18/23 rectal foam (Proctofoam HC) #10 grams Allergies Allergy/AdvReac Type Severity Reaction Status Date / Time plums AdvReac Unknown Uncoded 02/18/23 15:47 General Stated Complaint: GenMedical MONTRELL: 3 Review of Systems Constitutional Constitutional: Denies chills, Reports difficulty sleeping (Due to pain), Denies fever(s) and Denies malaise Cardiovascular Cardiovascular: Denies chest pain and Denies dyspnea Respiratory Respiratory: Denies dyspnea Gastrointestinal Gastrointestinal: Reports as per HPI, Denies abdominal pain, Denies melena, Denies hematochezia, Reports constipation, Denies fecal incontinence and Denies hematemesis Neurologic Neurologic: Reports tremor(s) (Only with severe pain in the rectum) PFSH All Active Problems Pain in rectum (Acute) Right heart failure (Acute) Diastolic CHF (Acute) Asthma (Chronic) Obesity hypoventilation syndrome (Acute) Essential hypertension (Chronic) Chewing tobacco use (Chronic) Severe obstructive sleep apnea (Chronic) Original PSG 12/02/16; BIPAP Prediabetes (Chronic) Depressive disorder (Chronic) Insomnia (Chronic) Morbid obesity with BMI of 60.0-69.9, adult (Chronic) Lower extremity ulceration (Acute) Acute on chronic respiratory failure with hypoxia and hypercapnia (Acute) Venous stasis dermatitis (Acute) Dyspnea (Acute) Weight gain with edema (Acute) Medical History Hyperlipidemia Surgical History H/O umbilical hernia repair (05/26/14) S/P appendectomy S/P colonoscopy (12/14/16) Family History Mother , at 70 from metastatic breast cancer Essential hypertension Metastatic breast cancer Type 2 diabetes mellitus Lung disease Cancer Father No problems noted. Sister Depression Maternal Grandfather Heart disease Lung cancer Maternal Grandmother COPD with emphysema Paternal Grandfather No problems noted. Paternal Grandmother No problems noted. 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 Pets and animals: No Sexually active: Yes Do you think of yourself as: straight/heterosexual Current gender identity: male What is your relationship status?: How often do you talk on the phone with friends or family?: three or more times per week How often do you get together with friends or relatives?: three or more times per week How often do you attend caodaism or yarsani services?: decline to answer Do you belong to any clubs or organized social groups?: decline to answer Panel score (0-1 are the most socially isolated patients): 1 What type of physical activity do you participate in: walking Duration: 15-30 minutes/day Frequency: daily Kay/Scientology: none Special kya needs: No Seatbelt use: never Helmet use: Yes Helmet use: always 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 Do you feel safe at home: Yes Do you feel safe in your relationship?: Yes Exam Const General: cooperative, no acute distress and not ill appearing Orientation: alert, awake and oriented x3 HENMT Mouth: moist mucous membranes Resp Effort & Inspection: normal respiratory effort, able to speak in complete sentences and no respiratory distress GI Inspection: obesity Rectal Exam: visual inspection normal, normal sphincter tone and tenderness Skin General skin exam: no rashes or lesions noted Neuro General: patient alert, patient awake, patient oriented x3, moves all extremities and no focal motor deficits Sensory Exam: no sensory deficits noted Course Vital Signs Vital signs: Vital Signs Temperature 36.8 C 02/18/23 15:43 Pulse 88 02/18/23 15:43 Respiratory Rate 18 02/18/23 15:43 Blood Pressure 125/91 H 02/18/23 15:43 Pulse Oximetry 95 02/18/23 15:43 Temperature 36.8 C 02/18/23 15:43 Temperature Source Skin 02/18/23 15:43 Pulse 88 02/18/23 15:43 Respiratory Rate 18 02/18/23 15:43 Respiratory Effort Normal, Non-Labored 02/18/23 16:47 Respiratory Depth Normal 02/18/23 16:43 Respiratory Pattern Normal 02/18/23 16:43 Blood Pressure 125/91 H 02/18/23 15:43 Blood Pressure Position Sitting 02/18/23 15:43 Pulse Oximetry 95 02/18/23 15:43 Oxygen Delivery Method Nasal Cannula 02/18/23 15:43 Oxygen Flow Rate 2 02/18/23 15:43 Pain Level 2 02/18/23 15:43
--- NOTE | 2023-02-18 18:42 | NUR.NOTE ---
Nursing Note: Referral faxed to [facility] Surgery for suspected hemorrhoid/this week.
== END 2023-02-18 18:20 | disposition home or self-care (01) ==
PROVIDERS: Emergency Provider Nurse Practitioner Family; PCP Nurse Practitioner Family
DX: K62.89 Other specified diseases of anus and rectum (principal); R25.1 Tremor, unspecified; I11.0 Hypertensive heart disease with heart failure; I50.32 Chronic diastolic (congestive) heart failure; F17.290 Nicotine dependence, other tobacco product, uncomplicated; Z99.81 Dependence on supplemental oxygen
CPT/HCPCS: 99283

== ENCOUNTER 2023-02-23 06:22 | Inpatient (IN) | payer MEDICAID, SELFPAY ==
[2023-02-23] VITALS (45 sets, daily range): BP systolic 90–129; BP diastolic 53–98; PULSE 67–132; RESP 16–20; TEMP 36–37; O2SAT 81–96
--- NOTE | 2023-02-23 06:34 | ED.GENADUL_ITS ---
Discharge Plan Discharge Details Chief Complaint: GenMedical Primary Care Provider: Sanjeev Brewer ED Provider: Rafat Harley Home Meds and New Rx's Prescriptions: No Action escitalopram oxalate 20 mg tablet 20 mg PO DAILY Qty: 90 3RF Rx Instructions: Take 1 tablet daily lisinopril 40 mg tablet 40 mg PO DAILY Qty: 90 4RF Rx Instructions: Take 1 tablet daily sildenafil [Viagra] 50 mg tablet 50 mg PO DAILY PRN (Reason: sexual activity) Qty: 60 4RF Rx Instructions: Take 1 tablet 1 hour before sexual activity; may be taken up to 4 hours before sexual activity metolazone 2.5 mg tablet 2.5 mg PO .COMPLEX Rx Instructions: 2.5 mg orally , Saturday; take 30 mins before lasix albuterol sulfate 2.5 mg /3 mL (0.083 %) solution for nebulization 2.5 mg inhalation QID PRN (Reason: shortness of breath or wheezing) Qty: 180 12RF fluticasone propion-salmeterol [Advair HFA] 230-21 mcg/actuation HFA aerosol inhaler 2 puff inhalation BID Qty: 12 12RF (DME) Oxygen Tank See Rx Instructions .Route Qty: 99 0RF Rx Instructions: 1LPM as needed with exertion or rest albuterol sulfate 90 mcg/actuation HFA aerosol inhaler 2 inh inhalation Q4H PRN (Reason: shortness of breath or wheezing) Qty: 18 1RF furosemide 80 mg tablet 80 mg PO BID Qty: 180 3RF mirtazapine 15 mg tablet 15 mg PO DAILY Qty: 30 0RF Rx Instructions: Take 1/2 a tab (7.5mg) for the first week. Increase to 1 tab (15mg). Proctofoam HC 1-1 % foam 1 applic IA QID PRN (Reason: hemorrhoids) Qty: 10 1RF HPI General Date/Time Provider Initiated Documentation: 02/23/23 06:34 . HPI Narrative: Patient presents emergency department complaining of unbearable rectal pain for the last 4 days. He was here in the emergency department 2 days ago was seen and they did not appreciated any external hemorrhoids or any thrombosed hemorrhoids. Patient denies any fever denies any chills reports the pain is about 9/10 pain in his rectal area Related Data Home Medications Medication Instructions Recorded Confirmed escitalopram oxalate 20 mg tablet 20 mg PO DAILY #90 tabs 09/18/22 02/23/23 lisinopril 40 mg tablet 40 mg PO DAILY #90 tabs 09/18/22 02/23/23 sildenafil 50 mg tablet (Viagra) 50 mg PO DAILY PRN sexual activity 09/18/22 02/23/23 #60 tabs albuterol sulfate 90 mcg/actuation 2 inh inhalation Q4H PRN shortness 11/16/22 02/23/23 aerosol inhaler of breath or wheezing #18 grams Oxygen #99 ea 12/21/22 02/23/23 fluticasone propionate 230 2 puff inhalation BID #12 grams 12/21/22 02/23/23 mcg-salmeterol 21 mcg/actuation HFA inhaler (Advair HFA) furosemide 80 mg tablet 80 mg PO BID #180 tabs 01/01/23 02/23/23 mirtazapine 15 mg tablet 15 mg PO DAILY #30 tabs 02/01/23 02/23/23 hydrocortisone 1 %-pramoxine 1 % 1 applic IA QID PRN hemorrhoids 02/18/23 02/23/23 rectal foam (Proctofoam HC) #10 grams albuterol sulfate 2.5 mg/3 mL 2.5 mg (3 mL) inhalation QID PRN 02/19/23 02/23/23 (0.083 %) solution for nebulization shortness of breath or wheezing #180 mL metolazone 2.5 mg tablet 2.5 mg PO .COMPLEX 02/19/23 02/23/23 Previous Rx's Medication Instructions Recorded escitalopram oxalate 20 mg tablet 20 mg PO DAILY #90 tabs 09/18/22 lisinopril 40 mg tablet 40 mg PO DAILY #90 tabs 09/18/22 sildenafil 50 mg tablet (Viagra) 50 mg PO DAILY PRN sexual activity 09/18/22 #60 tabs albuterol sulfate 90 mcg/actuation 2 inh inhalation Q4H PRN shortness 11/16/22 aerosol inhaler of breath or wheezing #18 grams Oxygen #99 ea 12/21/22 fluticasone propionate 230 2 puff inhalation BID #12 grams 12/21/22 mcg-salmeterol 21 mcg/actuation HFA inhaler (Advair HFA) furosemide 80 mg tablet 80 mg PO BID #180 tabs 01/01/23 mirtazapine 15 mg tablet 15 mg PO DAILY #30 tabs 02/01/23 hydrocortisone 1 %-pramoxine 1 % 1 applic IA QID PRN hemorrhoids 02/18/23 rectal foam (Proctofoam HC) #10 grams albuterol sulfate 2.5 mg/3 mL 2.5 mg (3 mL) inhalation QID PRN 02/19/23 (0.083 %) solution for nebulization shortness of breath or wheezing #180 mL Allergies Allergy/AdvReac Type Severity Reaction Status Date / Time plums AdvReac Unknown Uncoded 02/23/23 06:29 General Stated Complaint: GenMedical MONTRELL: 3 Review of Systems Narrative: Review of Systems: Constitutional: No fevers, chills, sweats Eye: No recent visual problems ENT: No ear pain, nasal congestion, sore throat Respiratory: No shortness of breath, cough Cardiovascular: No Chest pain, palpitations, syncope Gastrointestinal: No nausea, vomiting, diarrhea Genitourinary: No hematuria Candido/Lymph: Negative for bruising tendency, swollen lymph glands Endocrine: Negative for excessive thirst, excessive hunger Musculoskeletal: No back pain, neck pain, joint pain, muscle pain, decreased ran ge of motion Integumentary: No rash, pruritus, abrasions Neurologic: Alert & oriented X 4 Psychiatric: No anxiety, depression PFSH All Active Problems Pain in rectum (Acute) Right heart failure (Acute) Diastolic CHF (Acute) Asthma (Chronic) Obesity hypoventilation syndrome (Acute) Essential hypertension (Chronic) Chewing tobacco use (Chronic) Severe obstructive sleep apnea (Chronic) Original PSG 12/02/16; BIPAP Prediabetes (Chronic) Depressive disorder (Chronic) Insomnia (Chronic) Morbid obesity with BMI of 60.0-69.9, adult (Chronic) Lower extremity ulceration (Acute) Acute on chronic respiratory failure with hypoxia and hypercapnia (Acute) Venous stasis dermatitis (Acute) Dyspnea (Acute) Weight gain with edema (Acute) Medical History Hyperlipidemia Surgical History H/O umbilical hernia repair (05/26/14) S/P appendectomy S/P colonoscopy (12/14/16) Family History Mother , at 70 from metastatic breast cancer Essential hypertension Metastatic breast cancer Type 2 diabetes mellitus Lung disease Cancer Father No problems noted. Sister Depression Maternal Grandfather Heart disease Lung cancer Maternal Grandmother COPD with emphysema Paternal Grandfather No problems noted. Paternal Grandmother No problems noted. 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 Pets and animals: No Sexually active: Yes Do you think of yourself as: straight/heterosexual Current gender identity: male What is your relationship status?: How often do you talk on the phone with friends or family?: three or more times per week How often do you get together with friends or relatives?: three or more times per week How often do you attend mu-ism or gnosticist services?: decline to answer Do you belong to any clubs or organized social groups?: decline to answer Panel score (0-1 are the most socially isolated patients): 1 What type of physical activity do you participate in: walking Duration: 15-30 minutes/day Frequency: daily Kay/Protestant: none Special kay needs: No Seatbelt use: never Helmet use: Yes Helmet use: always 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 Exam Narrative Exam Narrative: Exam; vitals signs as reported above normal Constitutional; In no acute distress, afebrile General: cooperative, healthy appearing, comfortable and no acute distress HEENT: Head: normal to inspection, no palpable skull fracture and normocephalic atraumatic Eyes: l: appearance normal, both eyes and all related structures Pupils: PERRL : EOM intact bilaterally Direct ophthalmoscopy: normal light reflex, normal conjunctiva, normal visual acuity Neck no JVD, supple non tender Neck: normal visual inspection, full ROM and no lymphadenopathy Chest: normal inspection of the chest Respiratory : normal respiratory effort and able to speak in complete sentences no wheezing no rales Cardio Rate: regular rate Rhythm: regular rhythm normal heart sounds S1 and S2 no murmurs, gallops, or rubs GI : normal to inspection, normal bowel sounds, soft, non tender, non distended, no organomegaly Back/Spine/ no CVA tenderness Thoracic/Lumbar Spine: no tenderness or deformities Skin no rashes or lesions Neuro: patient alert and no meningeal signs, Cranial Nerves: CN's II-XI intact bilaterally, Cognition: normal cognition, Speech: speech normal, Gait: normal gait, Depp tendon reflexes normal 2+ Extremities, no edema, full range of motion, normal strength : normal rectal exam does not show any external hemorrhoids. Tender in the perirectal area Course Vital Signs Vital signs: Vital Signs Temperature 36.3 C L 02/23/23 06:25 Pulse 87 02/23/23 06:25 Respiratory Rate 16 02/23/23 06:25 Blood Pressure 129/69 02/23/23 06:25 Pulse Oximetry 96 02/23/23 06:25 Temperature 36.3 C L 02/23/23 06:25 Temperature Source Temporal Artery Scan 02/23/23 06:25 Pulse 87 02/23/23 06:25 Respiratory Rate 16 02/23/23 06:25 Respiratory Effort Normal 02/23/23 06:25 Blood Pressure 129/69 02/23/23 06:25 Blood Pressure Position Sitting 02/23/23 06:25 Pulse Oximetry 96 02/23/23 06:25 Oxygen Delivery Method Room Air 02/23/23 06:25 Oxygen Flow Rate 0 02/23/23 06:25 Pain Level 10 02/23/23 06:25 Sign Out Sign Out Data: Sign Out Comment: Patient with rectal pain that was here yesterday who has a CT of the pelvis pending to rule out a paracolic abscess Last updated by Rafat Harley MD at 02/23/23 07:47
[2023-02-23 06:45] LABS: Absolute Basophil Count 0.12 10^3/uL (0.0-0.2); Absolute Lymphocyte Count 1.81 10^3/uL (1.2-3.4); Basophils % 0.9; Eosinophils % 2.9; HGB 15.5 g/dL (13.5-17.5); Immature Grans % 0.7; Lymphocytes % 13.3; MCHC 32.3 % (32.0-36.0); MCV 87 fL (80-95); MPV 11.5 fL (8.0-11.0); Monocytes % 8.4; Neutrophils % 73.8; Platelet Count 323 10^3/uL (130-400); RBC 5.53 10^6/uL (4.36-5.78); RDW 13.4 % (11.8-14.1); RDW-SD 42.5 fL; WBC 13.63 10^3/uL (4.4-10.8)
[2023-02-23 06:48] LABS: Absolute Monocyte Count 1.14 10^3/uL (0.1-0.8); Absolute Neutrophil Count 10.06 10^3/uL (1.2-6.7)
[2023-02-23 07:02] LABS: ALT 19 U/L (16-63); AST 17 U/L (15-37); Albumin 3.7 g/dL (3.4-5.0); Alkaline Phosphatase 78 U/L (46-116); Anion Gap 6.5 mmol/L (3-11); BUN 49 mg/dL (7-18); Bilirubin, Total 0.4 mg/dL (0.2-1.0); CO2 39.5 mmol/L (21.0-32.0); CREATININE 3.3 mg/dL (0.70-1.30); Chloride 91 mmol/L (98-107); Estimated GFR 21.21 (mL/min/1.73m2); Glucose 172 mg/dL (74-106); Potassium 3.5 mmol/L (3.5-5.1); Sodium 137 mmol/L (136-145); Total Protein 8.9 g/dL (6.4-8.2)
--- NOTE | 2023-02-23 07:22 | DI.CT_ITS ---
Exam(s) CT ABDOMEN PELVIS WO EXAM: CT ABDOMEN PELVIS WO CLINICAL HISTORY: perirectal pain. TECHNIQUE: Imaging Protocol: Axial computed tomography images with coronal and sagittal reformatted images were created and reviewed. Oral: no COMPARISON: CT CT CHEST PE CTA from 07/04/2022 FINDINGS: Exam is limited by lack of IV an oral contrast as well as motion artifact and patient body habitus. Portions of the soft tissues are excluded from the field of view. ABDOMEN: Lung Bases: Normal where visualized. Liver: Normal density. No measurable mass. Gallbladder and biliary tract: No radiodense calculus or dilation. Pancreas: Normal density, no abnormal calcifications or inflammatory process. Spleen: Normal. Kidneys: Normal size, contour and axis. No radiodense stones or obstructive uropathy. No masses seen. Adrenal glands: No masses seen. Lymph nodes: Within normal limits. Abdominal Aorta: Abdominal portion non-dilated. PELVIS: Bladder: Symmetric distention, no gross wall thickening. Bowel: Diverticulosis. No evidence of diverticulitis. Normal quantity of stool. No evidence of leonel endicitis. No obstruction or bowel wall thickening. Peritoneal cavity: No ascites, collection or mesenteric inflammatory response. Reproductive organs: Within normal limits. Bones: Advanced degenerative disc changes. Soft tissues: Mild stranding in the subcutaneous fat of the right buttock. Fat extending into both i nguinal canals, right greater than left. No Viktoria rectal abscess or abnormal soft tissue thickening i n this area.. IMPRESSION: No evidence of perirectal abscess or other acute abnormality in the abdomen or pelvis. RADIATION DOSE DELIVERED: 2,159.99mGy.cm Total DLP DATA REPOSITORY: All CT scans at this facility are submitted to the National Radiology Data Registry (NRDR) Dose Index Registry (DIR) with the [employer] (ACR). RADIATION OPTIMIZATION: All CT scans at this facility use at least one of these dose optimization te chniques: automated exposure control; mA and/or kV adjustment per patient size (includes targeted exa ms where dose is matched to clinical indication); or iterative reconstruction.
[2023-02-23] MEDS: HYDROmorphone 2 MG/ML SYR 0.5 MG IVP (07:38)
--- NOTE | 2023-02-23 08:00 | DI.VRAD_ITS ---
PROCEDURE INFORMATION: Exam: CT Abdomen And Pelvis Without Contrast Exam date and time: 02/23/2023 7:20 AM Age: 57 years old Clinical indication: Pain; Other: Perirectal TECHNIQUE: Imaging protocol: Computed tomography of the abdomen and pelvis without contrast. COMPARISON: CT CHEST PE CTA 07/04/2022 2:31 PM FINDINGS: Limitations: Lack of intravenous contrast limits evaluation of the solid viscera and vasculature. Mild motion artifact and artifact related to body habitus degrade image quality. Portions of the abdominal wall are excluded from the field of view due to the limitations of gantry size. Lungs: Visualized lung bases are clear. No pleural effusions. Liver: Unremarkable. Gallbladder and bile ducts: Unremarkable. No calcified gallstones. No intrahepatic or extrahepatic biliary ductal dilation. Pancreas: Unremarkable. Spleen: Unremarkable. The spleen is normal in size. Adrenal glands: Unremarkable. Kidneys and ureters: The kidneys are normal and symmetric in size, without hydronephrosis, calcifications, or contour-deforming masses. No calcifications are identified in the ureters, which are normal in caliber. Stomach and bowel: The stomach is nondilated. The small and large bowel are normal in caliber. The sigmoid colon is redundant and contains multiple diverticula, without evidence of diverticulitis. The colonic stool burden is not abnormally increased. There is low-density stool in the left colon, which can be seen with malabsorption. No pericolonic or perirectal inflammatory fat stranding is noted. There is no perirectal or perianal collection. Appendix: No findings to suggest appendicitis. Intraperitoneal space: Unremarkable. No ascites, fluid collection, or pneumoperitoneum. Retroperitoneal space: Unremarkable. No retroperitoneal collection or mass. Vasculature: Unremarkable. The abdominal aorta is normal in caliber. Lymph nodes: No pathologically enlarged lymph nodes. Urinary bladder: Unremarkable. Reproductive: Unremarkable as visualized. Bones/joints: Degenerative changes. No suspicious osseous lesions. Soft tissues: Lipomatous hypertrophy of both spermatic cords, right greater than left. Patchy subcutaneous fat stranding in the right gluteal region, nonspecific. Soft tissue contusion or scarring might have this appearance. IMPRESSION: 1. No acute abnormality in the abdomen or pelvis. No evidence of an inflammatory or obstructive process. 2. Several incidental/nonemergent findings are discussed in the body of the report. Dictated and Authenticated by: Mansi Quick MD. Ordering:DONAVAN Douglass MD
--- NOTE | 2023-02-23 08:03 | W.EDPROG ---
Date of service: 02/23/23 Time of Service: 08:03 Medical Decision Making This patient was signed out to me. Please see previous notes for H&P and initial eval. In brief, 57yo male presenting with rectal pain, seen in this ED recently for same. Concern for perirectal/paracolic abscess, CT pending. Reviewed ED visit note 02/18/23; at that time patient discharged with plan for outpatient followup [facility] general surgery for possible internal hemorrhoids. -CT as below, no findings to suggest abscess. -Labs reviewed, slight leukokcytosis which is non specific. More concerning is Cr of 3.3 from normal baseline on most recent priors 07/09/22. -Given IL IVFB to facilitate urine (patient does have hx HF, will watch volume status); UA with 3-5RBC and 10-20WBC, moderate epis; possibly contaminated however in conjunction with rectal/anal pain concerning for possible prostatitis. Will treat empirically with IV ceftriaxone and repeat UA. On reassessment patient remains markedly uncomfortable, HR 132 suspect 2/t pain. Normal external jossie-anal examination. No point tenderness. Digital rectal exam with diffuse pain, no masses, no sarai blood. Given 2mg IV dilaudid and IV Tylenol with some improvement in pain; repeat dose of 2mg IV Dilaudid with good effect, repeat HR in 80's. He denies any history of kidney disease. Has not been taking NSAIDs at home for pain. Is taking lisinopril as well as furosemide and metolazone for LE edema with frequent medication adjustments per patient. Has been taking fluids well and voiding without difficulty, history/labs/imaging not particularly suggestive of pre or post renal etiology. Discussed with surgery on-call Dr. Basurto who will evaluate patient. Accepted to medicine service for further workup and management including pain control, acute kidney injury, possible prostatitis. Imaging Data Radiologic Study: Imaging: CT Scan Radiologist's impression: IMPRESSION: 1. ? No acute abnormality in the abdomen or pelvis. No evidence of an inflammatory or obstructive process. 2. ? Several incidental/nonemergent findings are discussed in the body of the report. (includes ?Patchy subcutaneous fat stranding in the right gluteal region, nonspecific) Lab Data Lab results reviewed: Yes I reviewed the patient's lab results. Labs: Laboratory Tests Range/Units 02/23/23 02/23/23 06:35 06:35 WBC (4.4-10.8) 10^3/uL 13.63 H RBC (4.36-5.78) 10^6/uL 5.53 Hgb (13.5-17.5) g/dL 15.5 Hct (40.0-50.0) % 48.0 MCV (80-95) fL 87 MCH (27.0-33.0) pg 28.0 MCHC (32.0-36.0) % 32.3 RDW (11.8-14.1) % 13.4 Plt Count (130-400) 10^3/uL 323 MPV (8.0-11.0) fL 11.5 H Immature Gran % 0.7 Neutrophils % 73.8 Lymphocytes % 13.3 Monocytes % 8.4 Eosinophils % 2.9 Basophils % 0.9 Nucleated RBC % (0.0-0.3) % 0.0 Absolute Neutrophils (1.2-6.7) 10^3/uL 10.06 H Absolute Lymphocytes (1.2-3.4) 10^3/uL 1.81 Absolute Monocytes (0.1-0.8) 10^3/uL 1.14 H Absolute Eosinophils (0.0-0.7) 10^3/uL 0.40 Absolute Basophils (0.0-0.2) 10^3/uL 0.12 Sodium (136-145) mmol/L 137 Potassium (3.5-5.1) mmol/L 3.5 Chloride (98-107) mmol/L 91 L Carbon Dioxide (21.0-32.0) mmol/L 39.5 H Anion Gap (3-11) mmol/L 6.5 BUN (7-18) mg/dL 49 H Creatinine (0.70-1.30) mg/dL 3.3 H Est GFR (CKD-EPI 2020) (mL/min/1.73m2) 21.21 Glucose (74-106) mg/dL 172 H Calcium (8.5-10.1) mg/dL 9.0 Total Bilirubin (0.2-1.0) mg/dL 0.4 AST (15-37) U/L 17 ALT (16-63) U/L 19 Alkaline Phosphatase (46-116) U/L 78 Total Protein (6.4-8.2) g/dL 8.9 H Albumin (3.4-5.0) g/dL 3.7 Sign Out Sign Out Data: Sign Out Comment: Patient with rectal pain that was here yesterday who has a CT of the pelvis pending to rule out a paracolic abscess Last updated by Rafat Harley MD at 02/23/23 07:47 Discharge Plan Disposition Patient Disposition: Admit to [facility] Condition: Serious Discharge Details Clinical Impression: Acute kidney injury, Anal or rectal pain Primary Care Provider: Sanjeev Brewer ED Provider: Marcy Chowdhury Home Meds and New Rx's Prescriptions: No Action escitalopram oxalate 20 mg tablet 20 mg PO DAILY Qty: 90 3RF Rx Instructions: Take 1 tablet daily lisinopril 40 mg tablet 40 mg PO DAILY Qty: 90 4RF Rx Instructions: Take 1 tablet daily sildenafil [Viagra] 50 mg tablet 50 mg PO DAILY PRN (Reason: sexual activity) Qty: 60 4RF Rx Instructions: Take 1 tablet 1 hour before sexual activity; may be taken up to 4 hours before sexual activity metolazone 2.5 mg tablet 2.5 mg PO .COMPLEX Rx Instructions: 2.5 mg orally , Saturday; take 30 mins before lasix albuterol sulfate 2.5 mg /3 mL (0.083 %) solution for nebulization 2.5 mg inhalation QID PRN (Reason: shortness of breath or wheezing) Qty: 180 12RF fluticasone propion-salmeterol [Advair HFA] 230-21 mcg/actuation HFA aerosol inhaler 2 puff inhalation BID Qty: 12 12RF (DME) Oxygen Tank See Rx Instructions .Route Qty: 99 0RF Rx Instructions: 1LPM as needed with exertion or rest albuterol sulfate 90 mcg/actuation HFA aerosol inhaler 2 inh inhalation Q4H PRN (Reason: shortness of breath or wheezing) Qty: 18 1RF furosemide 80 mg tablet 80 mg PO BID Qty: 180 3RF mirtazapine 15 mg tablet 15 mg PO DAILY Qty: 30 0RF Rx Instructions: Take 1/2 a tab (7.5mg) for the first week. Increase to 1 tab (15mg). Proctofoam HC 1-1 % foam 1 applic NE QID PRN (Reason: hemorrhoids) Qty: 10 1RF
[2023-02-23] MEDS: Normal Saline 1,000 ML 1000 ML IV (08:30)
[2023-02-23] MEDS: HYDROmorphone 2 MG/ML SYR IVP ×3 (09:00→16:31)
[2023-02-23] MEDS: Normal Saline 50 ML (09:04)
[2023-02-23] MEDS: ACETAMINOPHEN 1,000 MG/100 ML BTL 400 MG IVPB (09:59)
--- NOTE | 2023-02-23 10:27 | SUR.PHASEI ---
pt with intermittent severe pain pt states comes in waves tylenal given pt states pain tohlerable at this time
--- NOTE | 2023-02-23 10:36 | SCONE_ITS ---
Date of service: 02/23/23 Time of Service: 16:25 Assessment and Plan Assessment and plan (1) Pain in rectum: Status: Acute Assessment and plan: I do not see anything on exam, or by way of imaging that would explain the etiology of his leukocytosis, or acute kidney injury. I think the differential diagnosis for his anal pain is probably anal fissure, and less likely hemorrhoids, anal mass, or proctitis. For now, I think the best treatment is topical analgesia with something like a lidocaine cream. It is probably also worth trying a topical vasodilator like topical nitroglycerin, nifedipine, or diltiazem so long as these are not contraindicated by his heart failure. Similarly, would maximize a bowel regimen focusing on soft comfortable stools for convenient bowel hygiene. Sitz bath's can be used for some discomfort, although his body habitus may make this a little challenging. With regards to the exact diagnosis, he needs an exam under anesthesia. Again, his obesity is good to make this a little bit challenging. With an oxygen requirement and heart failure, prone positioning would be very hard to achieve here. A more awake approach, with some monitored anesthetic care, and perhaps a spinal anesthetic with lithotomy positioning might be better tolerated, but even that will pose some basic challenges. I discussed the plan with the anesthesia team, and see if we can make arrangements for some type of more definitive physical exam in a way that he will tolerate. History of Present Illness History of Present Illness Chief Complaint: Anal pain Narrative: Aamir is 57 years old, and he comes into the emergency department today with intractable anal pain. It started about 1 to 1-1/2 weeks ago. He was going about his daily routine when he noticed discomfort at his anus. It was not particularly related to bowel function, sitting, or movement. At first he thought it was just some mild discomfort that would improve on its own, but it continued to increase, to the point of near constant excruciating pain. He came to the emergency department on February 18. Exam at that time did not reveal an obvious source of the pain. Although he did describe it as similar to hemorrhoidal pain that he is experienced in the past. He was prescribed some Proctofoam, as well as analgesics and referred to the surgical office for outpatient evaluation. Unfortunately, his pain is continued to increase over the past 48 hours. In fact he had difficulty ambulating because of the severity of the pain.. Some relief with the opioids that he was prescribed for emergencies, but nothing has eliminated the pain completely. While in the emergency department, he was found to have an elevated serum creatinine level. He did undergo a CAT scan of the abdomen and pelvis that was basically normal. There were no signs of any perirectal abscess, or radiographic evidence of proctitis. He was quite tender on internal exam, but no clear source of his pain has been reached so far. His past medical history is complicated by his severe obesity and congestive heart failure with home oxygen requirement. Past surgical history significant for umbilical hernia, inguinal hernia, and hemorrhoids. He had a normal colonoscopy in 2017. Review of Systems Constitutional Constitutional: Denies body ache(s), Denies fever(s) and Reports frequent falls Eyes Eyes: Reports system reviewed and no additional complaints, except as documented ENT Ears, Nose, Mouth, and Throat: Reports system reviewed and no additional complaints, except as documented Cardiovascular Cardiovascular: Denies chest pain and Reports dyspnea on exertion Respiratory Respiratory: Reports chest congestion, Reports cough and Reports dyspnea on exertion Gastrointestinal Gastrointestinal: Denies abdominal pain, Denies bloating, Reports change in bowel habits (Small stools), Denies diarrhea, Denies nausea and Denies vomiting Genitourinary Genitourinary: Reports system reviewed and no additional complaints, except as documented Musculoskeletal Comments: Bilateral lower extremity edema Neurologic Neurologic: Reports system reviewed and no additional complaints, except as documented and Reports frequent falls Psychiatric Psychiatric: Reports system reviewed and no additional complaints, except as documented Hematologic/Lymphatic Hematologic/Lymphatic: Denies easy bleeding and Denies easy bruising PFSH All Active Problems Pain in rectum (Acute) Right heart failure (Acute) Diastolic CHF (Acute) Asthma (Chronic) Obesity hypoventilation syndrome (Acute) Essential hypertension (Chronic) Chewing tobacco use (Chronic) Severe obstructive sleep apnea (Chronic) Original PSG 12/02/16; BIPAP Prediabetes (Chronic) Depressive disorder (Chronic) Insomnia (Chronic) Morbid obesity with BMI of 60.0-69.9, adult (Chronic) Lower extremity ulceration (Acute) Acute on chronic respiratory failure with hypoxia and hypercapnia (Acute) Venous stasis dermatitis (Acute) Dyspnea (Acute) Weight gain with edema (Acute) Medical History Hyperlipidemia Surgical History H/O umbilical hernia repair (05/26/14) S/P appendectomy S/P colonoscopy (12/14/16) Family History Mother , at 70 from metastatic breast cancer Essential hypertension Metastatic breast cancer Type 2 diabetes mellitus Lung disease Cancer Father No problems noted. Sister Depression Maternal Grandfather Heart disease Lung cancer Maternal Grandmother COPD with emphysema Paternal Grandfather No problems noted. Paternal Grandmother No problems noted. 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 Pets and animals: No Sexually active: Yes Do you think of yourself as: straight/heterosexual Current gender identity: male What is your relationship status?: How often do you talk on the phone with friends or family?: three or more times per week How often do you get together with friends or relatives?: three or more times per week How often do you attend restorationism or adventism services?: decline to answer Do you belong to any clubs or organized social groups?: decline to answer Panel score (0-1 are the most socially isolated patients): 1 What type of physical activity do you participate in: walking Duration: 15-30 minutes/day Frequency: daily Kay/Yazdanism: none Special kay needs: No Seatbelt use: never Helmet use: Yes Helmet use: always Drive intox or ride w/intox truck driver helper: No Do you feel safe at home: Yes Do you feel safe in your relationship?: Yes Exam Const General: cooperative Orientation: alert, awake and oriented x3 HENMT Head: normal to inspection Eyes Conjunctivae: conjunctivae normal Sclera: sclerae normal Neck Neck: normal visual inspection and full ROM GI Inspection: normal to inspection and large pannus Palpation: soft and nontender Rectal Exam: visual inspection normal Other: External anorectal exam appears normal. He does have perianal tenderness. I do not see any obvious hemorrhoids. There is no erythema or fluctuance. Results Last Vital Signs Temp 97.3 F L 02/23/23 06:25 Pulse 132 H 02/23/23 09:49 Resp 20 02/23/23 06:32 BP 122/98 H 02/23/23 09:49 Pulse Ox 90 L 02/23/23 10:20 Labs 02/23/23 06:35 02/23/23 11:16 Labs: Laboratory Results - last 24 hr 02/23/23 02/23/23 06:35 06:35 WBC 13.63 H RBC 5.53 Hgb 15.5 Hct 48.0 MCV 87 MCH 28.0 MCHC 32.3 RDW 13.4 Plt Count 323 MPV 11.5 H Immature Gran % 0.7 Neutrophils % 73.8 Lymphocytes % 13.3 Monocytes % 8.4 Eosinophils % 2.9 Basophils % 0.9 Nucleated RBC % 0.0 Absolute Neutrophils 10.06 H Absolute Lymphocytes 1.81 Absolute Monocytes 1.14 H Absolute Eosinophils 0.40 Absolute Basophils 0.12 Sodium 137 Potassium 3.5 Chloride 91 L Carbon Dioxide 39.5 H Anion Gap 6.5 BUN 49 H Creatinine 3.3 H Est GFR (CKD-EPI 2020) 21.21 Glucose 172 H Calcium 9.0 Total Bilirubin 0.4 AST 17 ALT 19 Alkaline Phosphatase 78 Total Protein 8.9 H Albumin 3.7
[2023-02-23 11:25] LABS: Bilirubin Negative (Negative); Blood Trace-intact (Negative); Clarity Clear (Clear); Glucose 250 mg/dL (Negative); Ketones Negative (Negative); Leukocyte Esterase Trace (Negative); Nitrite Negative (Negative); Specific Gravity 1.015 (1.005-1.025); Urobilinogen 0.2 mg/dL (Up to 0.2); pH 6.5 (5-8)
[2023-02-23 11:32] LABS: Anion Gap 6.5 mmol/L (3-11); BUN 46 mg/dL (7-18); CO2 37.5 mmol/L (21.0-32.0); Calcium 8.6 mg/dL (8.5-10.1); Chloride 94 mmol/L (98-107); Estimated GFR 23.78 (mL/min/1.73m2); Glucose 152 mg/dL (74-106); Potassium 3.2 mmol/L (3.5-5.1); Sodium 138 mmol/L (136-145)
[2023-02-23 11:45] LABS: Bacteria Few HPF (Negative); C & S Indicated? No/Sq. Contamination; Casts 0-2 Hyaline LPF (Negative); Crystals Negative HPF (Negative); Epithelial Cells Moderate HPF (Negative); Mucus Negative (Negative)
[2023-02-23 12:18] LABS: Lactate 0.8 mmol/L (0.6-1.4)
[2023-02-23] MEDS: cefTRIAXone 1 GM/50 ML BAG IVPB (13:00)
[2023-02-23 13:15] LABS: Bilirubin Negative (Negative); Blood Negative (Negative); Clarity Clear (Clear); Glucose 100 mg/dL (Negative); Ketones Negative (Negative); Leukocyte Esterase Negative (Negative); Nitrite Negative (Negative); Specific Gravity 1.015 (1.005-1.025); Urobilinogen 0.2 mg/dL (Up to 0.2)
[2023-02-23 13:27] LABS: Bacteria Negative HPF (Negative); C & S Indicated? No; Casts 0-2 Hyaline LPF (Negative); Crystals Negative HPF (Negative); Epithelial Cells Few HPF (Negative); Mucus Negative (Negative); Other Cells Few Transitional (Negative); RBC 0-2 HPF (0-2)
[2023-02-23] MEDS: Lactated Ringers 1,000 ML 500 ML IV (17:37)
--- NOTE | 2023-02-23 18:46 | ANES_ITS ---
Date of service: 02/23/23 Time of Service: 18:46 Anesthesia Note Report Anesthesia Note: I was asked by general surgery to review this patients chart to evaluate his appropriateness to receive anesthesia services at [facility]. After chart review, he does not appear to be a good candidate to receive anesthesia services at [facility] given BMI>62, ongoing heart failure despite oral therapy, severe sleep apnea, home oxygen requirement with ongoing hypercapnia/hypoxic respiratory failure, and current kidney function. I would recommend transfer or followup at a larger hospital for anesthesia/surgical services. If transfer is not possible and intervention urgently/emergently required, then we would be available to discuss this further.
--- NOTE | 2023-02-23 19:19 | HPE_ITS ---
Date of service: 02/23/23 Time of Service: 19:19 Assessment and Plan Assessment and plan (1) Acute kidney injury: Status: Acute Assessment and plan: Nonoliguric, likely in setting of ALICE inhibitor use, diuretics, poor oral intake. We will bladder scan to rule out retention and will continue IV fluids overnight while holding offending medications. Cautiously replace potassium and would expect normalized renal function over the next day or 2. Nothing at this point to suggest ATN. (2) Anal or rectal pain: Status: Acute Assessment and plan: Surgery is contemplating more detailed exam under anesthesia. Prostatitis seems less likely but given his leukocytosis ordered a single dose IV Cipro adjusted for renal function. (3) Diastolic CHF: Status: Acute Assessment and plan: No acute respiratory issues. Holding diuretics as above. (4) Severe obstructive sleep apnea: Status: Chronic Assessment and plan: Ordered nocturnal CPAP per home regimen. VBG with morning labs. (5) Essential hypertension: Status: Chronic Assessment and plan: Lisinopril on hold as above. (6) Prediabetes: Status: Chronic Assessment and plan: Recheck fasting glucose with labs. History of Present Illness History of Present Illness Chief Complaint: Rectal pain Narrative: This 57-year-old male has been having excruciating rectal pain for several days. He tried outpatient management with some topical therapies and oral analgesics but came in overnight because of increasing pain. Subjectively has had a fever but no rigors and other than mild urinary frequency no other symptoms including urgency, dysuria, purulent discharge. Pain is worse with moving his bowels or passing gas and he has drastically reduced his food intake to prevent these episodes. Denies feeling increasingly thirsty and reports normal fluid intake. Has been compliant with all of his medications including diuretics and ALICE inhibitor. Denies any NSAID use. Denies any abdominal pain, nausea, vomiting. Some difficulty initiating urine stream but no sensation of incomplete emptying. His history includes sleep apnea, compliant with nocturnal CPAP, also uses oxygen during the day for question of asthma although details are not clear and he states the work-up is still in progress. He is prediabetic, denies any history of renal disease, uses multiple diuretics for lower extremity edema but denies any history of heart failure or CAD. Former smoker and occasional marijuana user but denies any drug use or alcohol intake. Review of Systems All systems reviewed & are unremarkable except as noted in HPI and below PFSH All Active Problems Acute kidney injury (Acute) Anal or rectal pain (Acute) Pain in rectum (Acute) Right heart failure (Acute) Diastolic CHF (Acute) Asthma (Chronic) Obesity hypoventilation syndrome (Acute) Essential hypertension (Chronic) Chewing tobacco use (Chronic) Severe obstructive sleep apnea (Chronic) Original PSG 12/02/16; BIPAP Prediabetes (Chronic) Depressive disorder (Chronic) Insomnia (Chronic) Morbid obesity with BMI of 60.0-69.9, adult (Chronic) Lower extremity ulceration (Acute) Acute on chronic respiratory failure with hypoxia and hypercapnia (Acute) Venous stasis dermatitis (Acute) Dyspnea (Acute) Weight gain with edema (Acute) Medical History Hyperlipidemia Surgical History H/O umbilical hernia repair (05/26/14) S/P appendectomy S/P colonoscopy (12/14/16) Family History Mother , at 70 from metastatic breast cancer Essential hypertension Metastatic breast cancer Type 2 diabetes mellitus Lung disease Cancer Father No problems noted. Sister Depression Maternal Grandfather Heart disease Lung cancer Maternal Grandmother COPD with emphysema Paternal Grandfather No problems noted. Paternal Grandmother No problems noted. 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 Pets and animals: No Sexually active: Yes Do you think of yourself as: straight/heterosexual Current gender identity: male What is your relationship status?: How often do you talk on the phone with friends or family?: three or more times per week How often do you get together with friends or relatives?: three or more times per week How often do you attend evangelical or restorationist services?: decline to answer Do you belong to any clubs or organized social groups?: decline to answer Panel score (0-1 are the most socially isolated patients): 1 What type of physical activity do you participate in: walking Duration: 15-30 minutes/day Frequency: daily Kay/Amish: none Special kay needs: No Seatbelt use: never Helmet use: Yes Helmet use: always Drive intox or ride w/intox local 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 Meds Allergies and Home Medications Allergies Allergy/AdvReac Type Severity Reaction Status Date / Time plums AdvReac Unknown Uncoded 02/23/23 06:29 Home Medications Medication Instructions Recorded Confirmed Type escitalopram oxalate 20 mg tablet 20 mg PO DAILY #90 tabs 09/18/22 02/23/23 Rx lisinopril 40 mg tablet 40 mg PO DAILY #90 tabs 09/18/22 02/23/23 Rx sildenafil 50 mg tablet (Viagra) 50 mg PO DAILY PRN sexual activity 09/18/22 02/23/23 Rx #60 tabs albuterol sulfate 90 mcg/actuation 2 inh inhalation Q4H PRN shortness 11/16/22 02/23/23 Rx aerosol inhaler of breath or wheezing #18 grams Oxygen #99 ea 12/21/22 02/23/23 Rx fluticasone propionate 230 2 puff inhalation BID #12 grams 12/21/22 02/23/23 Rx mcg-salmeterol 21 mcg/actuation HFA inhaler (Advair HFA) furosemide 80 mg tablet 80 mg PO BID #180 tabs 01/01/23 02/23/23 Rx mirtazapine 15 mg tablet 15 mg PO DAILY #30 tabs 02/01/23 02/23/23 Rx hydrocortisone 1 %-pramoxine 1 % 1 applic [place] QID PRN hemorrhoids 02/18/23 02/23/23 Rx rectal foam (Proctofoam HC) #10 grams albuterol sulfate 2.5 mg/3 mL 2.5 mg (3 mL) inhalation QID PRN 02/19/23 02/23/23 Rx (0.083 %) solution for nebulization shortness of breath or wheezing #180 mL metolazone 2.5 mg tablet 2.5 mg PO .COMPLEX 02/19/23 02/23/23 History Exam Narrative Exam Narrative: General the patient is in no acute physical distress, affect appropriate HEENT pupils are equal round and reactive to light, no conjunctival pallor, no scleral icterus, posterior pharynx clear with no erythema or exudate, mucosa moist Neck supple, no lymphadenopathy or thyromegaly, carotid pulses are normal and symmetric, no bruits CV regular, no murmur or gallop, no JVD Lungs clear bilaterally, no crackles or wheezes Abdomen soft, nontender, bowel sounds are normal, no organomegaly or masses Extremities chronic appearing 1+ pitting edema with some blanching erythema, distal pulses are normal and symmetric Joints no inflammatory changes noted Neurologic no tremor, strength and sensation normal and symmetric Results Imaging Additional studies: Reviewed his labs which indicate elevated BUN and creatinine compared to baseline, mild hypokalemia, leukocytosis noted, urine with minimal pyuria and no casts or microscopic hematuria, specific gravity 1.015, reviewed CT imaging which showed no pathology including urinary tract obstruction or acute inflammatory processes. Reviewed an echo from 07/12 which showed normal LV function but they were unable to comment on pulmonary pressures or RV function. Labs 02/23/23 06:35 02/23/23 11:16 Labs: Laboratory Results - last 24 hr 02/23/23 02/23/23 02/23/23 06:35 06:35 10:50 WBC 13.63 H RBC 5.53 Hgb 15.5 Hct 48.0 MCV 87 MCH 28.0 MCHC 32.3 RDW 13.4 Plt Count 323 MPV 11.5 H Immature Gran % 0.7 Neutrophils % 73.8 Lymphocytes % 13.3 Monocytes % 8.4 Eosinophils % 2.9 Basophils % 0.9 Nucleated RBC % 0.0 Absolute Neutrophils 10.06 H Absolute Lymphocytes 1.81 Absolute Monocytes 1.14 H Absolute Eosinophils 0.40 Absolute Basophils 0.12 VBG Lactate Sodium 137 Potassium 3.5 Chloride 91 L Carbon Dioxide 39.5 H Anion Gap 6.5 BUN 49 H Creatinine 3.3 H Est GFR (CKD-EPI 2020) 21.21 Glucose 172 H Calcium 9.0 Total Bilirubin 0.4 AST 17 ALT 19 Alkaline Phosphatase 78 Total Protein 8.9 H Albumin 3.7 Urine Color Yellow Urine Clarity Clear Urine pH 6.5 Ur Specific [place] 1.015 Urine Protein 30 H Urine Ketones Negative Urine Blood Trace-intact H Urine Nitrite Negative Urine Bilirubin Negative Urine Urobilinogen 0.2 Ur Leukocyte Esterase Trace H Urine RBC 3-5 H Urine WBC 10-20 H Ur Epithelial Cells Moderate Urine Crystals Negative Urine Bacteria Few Urine Casts 0-2 Hyaline Urine Mucus Negative Urine Other Ur Culture Indicated? No/Sq. Contamination Urine Glucose 250 H 02/23/23 02/23/23 02/23/23 11:16 12:13 13:00 WBC RBC Hgb Hct MCV MCH MCHC RDW Plt Count MPV Immature Gran % Neutrophils % Lymphocytes % Monocytes % Eosinophils % Basophils % Nucleated RBC % Absolute Neutrophils Absolute Lymphocytes Absolute Monocytes Absolute Eosinophils Absolute Basophils VBG Lactate 0.8 Sodium 138 Potassium 3.2 L Chloride 94 L Carbon Dioxide 37.5 H Anion Gap 6.5 BUN 46 H Creatinine 3.0 H Est GFR (CKD-EPI 2020) 23.78 Glucose 152 H Calcium 8.6 Total Bilirubin AST ALT Alkaline Phosphatase Total Protein Albumin Urine Color Yellow Urine Clarity Clear Urine pH 6.0 Ur Specific [place] 1.015 Urine Protein 30 H Urine Ketones Negative Urine Blood Negative Urine Nitrite Negative Urine Bilirubin Negative Urine Urobilinogen 0.2 Ur Leukocyte Esterase Negative Urine RBC 0-2 Urine WBC 3-5 Ur Epithelial Cells Few Urine Crystals Negative Urine Bacteria Negative Urine Casts 0-2 Hyaline Urine Mucus Negative Urine Other Few Transitional Ur Culture Indicated? No Urine Glucose 100 H Last Vital Signs Temp 36.0 C L 02/23/23 17:00 Pulse 79 02/23/23 17:00 Resp 18 02/23/23 11:18 BP 113/59 L 02/23/23 17:00 Pulse Ox 94 02/23/23 17:00 Time Spent Time spent with Patient: 40-54 minutes Time was spent: preparing to see the patient(eg.review tests), obtaining and/or reviewing separately otained hiistory, ordering medications,tests, procedures, referring, communicating with other health rn complex care, indepentently interpreting results, counseling the patient and care coordination
[2023-02-23 20:03] LABS: ALT 16 U/L (16-63); AST 16 U/L (15-37); Albumin 3.6 g/dL (3.4-5.0); Alkaline Phosphatase 72 U/L (46-116); BUN 43 mg/dL (7-18); Bilirubin, Total 0.6 mg/dL (0.2-1.0); CREATININE 2.7 mg/dL (0.70-1.30); Calcium 8.8 mg/dL (8.5-10.1); Chloride 93 mmol/L (98-107); Estimated GFR 26.99 (mL/min/1.73m2); Glucose 130 mg/dL (74-106); Magnesium 3.1 mg/dL (1.8-2.4); Potassium 3.3 mmol/L (3.5-5.1); Sodium 137 mmol/L (136-145); Total Protein 8.5 g/dL (6.4-8.2); Troponin I < 50 ng/L (<or=60)
[2023-02-23 20:20] LABS: Abs Immature Grans 0.08 10^3/uL (0.0-0.06); Absolute Basophil Count 0.08 10^3/uL (0.0-0.2); Absolute Lymphocyte Count 1.61 10^3/uL (1.2-3.4); Absolute Monocyte Count 1.19 10^3/uL (0.1-0.8); Absolute Neutrophil Count 12.34 10^3/uL (1.2-6.7); Basophils % 0.5; Eosinophils % 1.3; HCT 44.5 % (40.0-50.0); HGB 14.6 g/dL (13.5-17.5); Immature Grans % 0.5; Lymphocytes % 10.4; MCH 28.3 pg (27.0-33.0); MCHC 32.8 % (32.0-36.0); MCV 86 fL (80-95); MPV 11.1 fL (8.0-11.0); Monocytes % 7.7; Neutrophils % 79.6; Platelet Count 328 10^3/uL (130-400); RBC 5.16 10^6/uL (4.36-5.78); RDW 13.4 % (11.8-14.1); RDW-SD 42.5 fL
[2023-02-23] MEDS: HYDROmorphone 2 MG/ML SYR 1 MG IVP (21:20)
[2023-02-23] MEDS: Mirtazapine 15 MG TAB PO (21:20)
[2023-02-23] MEDS: Potassium Chloride 20 MEQ TABCR PO (21:21)
[2023-02-23] MEDS: CIPROFLOXACIN 400 MG/200 ML BAG 200 MG IVPB (21:21)
[2023-02-23] MEDS: Lactated Ringers 1,000 ML 75 ML IV (21:26)
[2023-02-23 22:26] LABS: Troponin I < 50 ng/L (<or=60)
[2023-02-24] VITALS (7 sets, daily range): BP systolic 103–124; BP diastolic 64–74; PULSE 77–93; RESP 16–18; TEMP 36.1–36.8; O2SAT 90–98
[2023-02-24] MEDS: HYDROmorphone 2 MG/ML SYR 1 MG IVP ×5 (02:01→21:31)
[2023-02-24] MEDS: Normal Saline Flush 10 ML SYR IVP ×4 (02:02→21:32)
[2023-02-24 07:54] LABS: BE (Venous) 15 mmol/L (-2-3); HCO3 (Venous) 40 mmol/L (23-28); O2 Sat (Venous) 65 %; TCO2 (Venous) 36 mmol/L (24-29); pH (Venous) 7.37 (7.31-7.41); pO2 (Venous) 34 mmHg
[2023-02-24 07:57] LABS: pCO2 (Venous) 70 mmHg (41-51)
[2023-02-24] MEDS: Escitalopram 20 MG TAB PO (07:58)
[2023-02-24 08:10] LABS: Anion Gap 4.7 mmol/L (3-11); BUN 39 mg/dL (7-18); CO2 37.3 mmol/L (21.0-32.0); CREATININE 2.1 mg/dL (0.70-1.30); Chloride 96 mmol/L (98-107); Estimated GFR 36.49 (mL/min/1.73m2); Glucose 121 mg/dL (74-106); HGB 16.2 g/dL (13.5-17.5); MCH 28.5 pg (27.0-33.0); MCHC 33.1 % (32.0-36.0); MCV 86 fL (80-95); MPV 12.2 fL (8.0-11.0); Magnesium 3.4 mg/dL (1.8-2.4); Platelet Count 279 10^3/uL (130-400); Potassium 3.3 mmol/L (3.5-5.1); RBC 5.69 10^6/uL (4.36-5.78); RDW 13.3 % (11.8-14.1); Sodium 138 mmol/L (136-145); WBC 13.43 10^3/uL (4.4-10.8)
[2023-02-24] MEDS: Budesonide/Formoterol 160/4.5 6 GM 60 PUFF INH IH ×2 (08:24→19:10)
[2023-02-24] MEDS: POTASSIUM CHLORIDE 20 MEQ/100 ML BAG 50 MEQ IVPB ×2 (10:07→12:47)
[2023-02-24] MEDS: Lactated Ringers 1,000 ML 75 ML IV (10:07)
--- NOTE | 2023-02-24 10:52 | W.PM.PROGNOT ---
Date of Service Date of service: 02/24/23 Time of Service: 10:52 Assessment and Plan Assessment and plan (1) Anal or rectal pain: Status: Acute Assessment and plan: I would continue with perianal hygiene, a bowel regimen, as well as topical and systemic analgesics to help relieve his discomfort. His white blood cell count is improved after the initiation of antibiotics, so I suppose a short course of antibiotic therapy may be helpful here, even though I am not exactly sure what the source of infection might be. I did discuss the case with the anesthesia service. Given his comorbidities, particularly, right-sided heart failure combined with severe obesity, referral to a tertiary care center for definitive diagnosis and treatment of the anal pain is probably the safest course of action. I think this can be done as an outpatient if his symptoms can be controlled, and his other issues such as his kidney injury continue to improve. Subjective Subjective Interval history since last seen: Aamir has had some relief with the addition of analgesia overnight. He feels a little better this morning. He has not had a bowel movement yet today. Exam GI Other: Abdomen's obese, but seems soft and not particularly distended. He is not tender. Objective Last Vital Signs Temp 97.0 F L 02/24/23 07:14 Pulse 93 H 02/24/23 07:14 Resp 18 02/24/23 07:14 BP 112/71 02/24/23 07:14 Pulse Ox 91 L 02/24/23 09:40 Laboratory Results - last 24 hr 02/23/23 02/23/23 02/23/23 10:50 11:16 12:13 WBC RBC Hgb Hct MCV MCH MCHC RDW Plt Count MPV Immature Gran % Neutrophils % Lymphocytes % Monocytes % Eosinophils % Basophils % Nucleated RBC % Absolute Neutrophils Absolute Lymphocytes Absolute Monocytes Absolute Eosinophils Absolute Basophils VBG pH VBG pCO2 VBG pO2 VBG HCO3 VBG Total CO2 VBG O2 Saturation VBG Base Excess VBG Lactate 0.8 Sodium 138 Potassium 3.2 L Chloride 94 L Carbon Dioxide 37.5 H Anion Gap 6.5 BUN 46 H Creatinine 3.0 H Est GFR (CKD-EPI 2020) 23.78 Glucose 152 H Calcium 8.6 Magnesium Total Bilirubin AST ALT Alkaline Phosphatase Troponin I Total Protein Albumin Urine Color Yellow Urine Clarity Clear Urine pH 6.5 Ur Specific [place] 1.015 Urine Protein 30 H Urine Ketones Negative Urine Blood Trace-intact H Urine Nitrite Negative Urine Bilirubin Negative Urine Urobilinogen 0.2 Ur Leukocyte Esterase Trace H Urine RBC 3-5 H Urine WBC 10-20 H Ur Epithelial Cells Moderate Urine Crystals Negative Urine Bacteria Few Urine Casts 0-2 Hyaline Urine Mucus Negative Urine Other Ur Culture Indicated? No/Sq. Contamination Urine Glucose 250 H 02/23/23 02/23/23 02/23/23 13:00 19:32 20:15 WBC 15.50 H RBC 5.16 Hgb 14.6 Hct 44.5 MCV 86 MCH 28.3 MCHC 32.8 RDW 13.4 Plt Count 328 MPV 11.1 H Immature Gran % 0.5 Neutrophils % 79.6 Lymphocytes % 10.4 Monocytes % 7.7 Eosinophils % 1.3 Basophils % 0.5 Nucleated RBC % 0.0 Absolute Neutrophils 12.34 H Absolute Lymphocytes 1.61 Absolute Monocytes 1.19 H Absolute Eosinophils 0.20 Absolute Basophils 0.08 VBG pH VBG pCO2 VBG pO2 VBG HCO3 VBG Total CO2 VBG O2 Saturation VBG Base Excess VBG Lactate Sodium 137 Potassium 3.3 L Chloride 93 L Carbon Dioxide 37.0 H Anion Gap 7.0 BUN 43 H Creatinine 2.7 H Est GFR (CKD-EPI 2020) 26.99 Glucose 130 H Calcium 8.8 Magnesium 3.1 H Total Bilirubin 0.6 AST 16 ALT 16 Alkaline Phosphatase 72 Troponin I < 50 Total Protein 8.5 H Albumin 3.6 Urine Color Yellow Urine Clarity Clear Urine pH 6.0 Ur Specific [place] 1.015 Urine Protein 30 H Urine Ketones Negative Urine Blood Negative Urine Nitrite Negative Urine Bilirubin Negative Urine Urobilinogen 0.2 Ur Leukocyte Esterase Negative Urine RBC 0-2 Urine WBC 3-5 Ur Epithelial Cells Few Urine Crystals Negative Urine Bacteria Negative Urine Casts 0-2 Hyaline Urine Mucus Negative Urine Other Few Transitional Ur Culture Indicated? No Urine Glucose 100 H 02/23/23 02/24/23 02/24/23 22:01 06:38 06:38 WBC 13.43 H RBC 5.69 Hgb 16.2 Hct 49.0 MCV 86 MCH 28.5 MCHC 33.1 RDW 13.3 Plt Count 279 MPV 12.2 H Immature Gran % Neutrophils % Lymphocytes % Monocytes % Eosinophils % Basophils % Nucleated RBC % Absolute Neutrophils Absolute Lymphocytes Absolute Monocytes Absolute Eosinophils Absolute Basophils VBG pH VBG pCO2 VBG pO2 VBG HCO3 VBG Total CO2 VBG O2 Saturation VBG Base Excess VBG Lactate Sodium 138 Potassium 3.3 L Chloride 96 L Carbon Dioxide 37.3 H Anion Gap 4.7 BUN 39 H Creatinine 2.1 H Est GFR (CKD-EPI 2020) 36.49 Glucose 121 H Calcium 9.0 Magnesium 3.4 H Total Bilirubin AST ALT Alkaline Phosphatase Troponin I < 50 Total Protein Albumin Urine Color Urine Clarity Urine pH Ur Specific [place] Urine Protein Urine Ketones Urine Blood Urine Nitrite Urine Bilirubin Urine Urobilinogen Ur Leukocyte Esterase Urine RBC Urine WBC Ur Epithelial Cells Urine Crystals Urine Bacteria Urine Casts Urine Mucus Urine Other Ur Culture Indicated? Urine Glucose 02/24/23 06:38 WBC RBC Hgb Hct MCV MCH MCHC RDW Plt Count MPV Immature Gran % Neutrophils % Lymphocytes % Monocytes % Eosinophils % Basophils % Nucleated RBC % Absolute Neutrophils Absolute Lymphocytes Absolute Monocytes Absolute Eosinophils Absolute Basophils VBG pH 7.37 VBG pCO2 70 H* VBG pO2 34 VBG HCO3 40 H VBG Total CO2 36 H VBG O2 Saturation 65 VBG Base Excess 15 H VBG Lactate Sodium Potassium Chloride Carbon Dioxide Anion Gap BUN Creatinine Est GFR (CKD-EPI 2020) Glucose Calcium Magnesium Total Bilirubin AST ALT Alkaline Phosphatase Troponin I Total Protein Albumin Urine Color Urine Clarity Urine pH Ur Specific [place] Urine Protein Urine Ketones Urine Blood Urine Nitrite Urine Bilirubin Urine Urobilinogen Ur Leukocyte Esterase Urine RBC Urine WBC Ur Epithelial Cells Urine Crystals Urine Bacteria Urine Casts Urine Mucus Urine Other Ur Culture Indicated? Urine Glucose Time Spent with Patient Time Spent with Patient: 25-34 minutes Time was spent: referring, communicating with other health critical care clinical nurse specialist, counseling the patient and care coordination
--- NOTE | 2023-02-24 12:37 | PDOC.CMIN ---
Date of service: 02/24/23 Time of Service: 12:37 Care Management Initial Assmt Initial Assessment REASON FOR HOSPITALIZATION:: CR PREVIOUS FUNCTIONAL STATUS/SOCIAL/FAMILY SUPPORTS:: Resides in [place] and older community in [place] with his father. Natural support system includes sisterVerena in [place] and Isha Mcwilliams. CURRENT FUNCTIONAL STATUS:: 10/10 radiating, sharp pain which RN is medicating him for. CM to assess when Aamir is more comfortable. Up independently. ADVANCE DIRECTIVES:: None on file. Has patient been provided with info about the portal/API?: Yes Did the patient sign up for the portal?: Yes CODE STATUS:: Full Code INSURANCE COVERAGE / FINANCIAL ISSUES:: Medicaid CURRENT HOME/COMMUNITY SERVICES/EQUIPMENT:: Followed by [facility] outpatient cardiology and pulmonology; utilizes nocturnal CPAP and home O2. PRIMARY CARE PHYSICIAN:: Sanjeev Urias POTENTIAL DISCHARGE NEEDS:: Follow up appointments, including surgery. PATIENT/FAMILY EDUCATION NEEDS:: Review discharge instructions, discuss Ask Me Three. ANTICIPATED BARRIERS TO DISCHARGE:: None identified. TRANSPORTATION:: Via private vehicle with family. PLAN:: Anticipate Jaydon will return home with no additional services when medically cleared, per MD. He will have outpatient follow up and resume current services and DME equipment. He will transport via private vehicle with family. PFSH All Active Problems Acute kidney injury (Acute) Anal or rectal pain (Acute) Pain in rectum (Acute) Right heart failure (Acute) Diastolic CHF (Acute) Asthma (Chronic) Obesity hypoventilation syndrome (Acute) Essential hypertension (Chronic) Chewing tobacco use (Chronic) Severe obstructive sleep apnea (Chronic) Original PSG 12/02/16; BIPAP Prediabetes (Chronic) Depressive disorder (Chronic) Insomnia (Chronic) Morbid obesity with BMI of 60.0-69.9, adult (Chronic) Lower extremity ulceration (Acute) Acute on chronic respiratory failure with hypoxia and hypercapnia (Acute) Venous stasis dermatitis (Acute) Dyspnea (Acute) Weight gain with edema (Acute) Medical History Hyperlipidemia Surgical History H/O umbilical hernia repair (05/26/14) S/P appendectomy S/P colonoscopy (12/14/16) Family History Mother , at 70 from metastatic breast cancer Essential hypertension Metastatic breast cancer Type 2 diabetes mellitus Lung disease Cancer Father No problems noted. Sister Depression Maternal Grandfather Heart disease Lung cancer Maternal Grandmother COPD with emphysema Paternal Grandfather No problems noted. Paternal Grandmother No problems noted. 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 Pets and animals: No Sexually active: Yes Do you think of yourself as: straight/heterosexual Current gender identity: male What is your relationship status?: How often do you talk on the phone with friends or family?: three or more times per week How often do you get together with friends or relatives?: three or more times per week How often do you attend druze or adventism services?: decline to answer Do you belong to any clubs or organized social groups?: decline to answer Panel score (0-1 are the most socially isolated patients): 1 What type of physical activity do you participate in: walking Duration: 15-30 minutes/day Frequency: daily Kay/Rastafari: none Special kay needs: No Seatbelt use: never Helmet use: Yes Helmet use: always Drive intox or ride w/intox tractor trailer 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
--- NOTE | 2023-02-24 16:27 | PGE_ITS ---
Date of Service Date of service: 02/24/23 Time of Service: 16:27 Assessment and Plan Assessment and plan (1) Acute kidney injury: Status: Acute Assessment and plan: continue replacing potassium and continue IVF; Creatinine 2.1 (2) Anal or rectal pain: Status: Acute Assessment and plan: Surgery suggests out patient follow up for further work up and short course of abx. Will continue Cipro 400 mg BID IV in case of prostatitis - refer to urology Patient refuses bowel meds hurts with hard or soft or runny movements (3) Hypokalemia: Status: Acute Assessment and plan: 3.3 - repleted; monitor (4) Diastolic CHF: Status: Acute Assessment and plan: No acute respiratory issues. Holding diuretics as above. (5) Severe obstructive sleep apnea: Status: Chronic Assessment and plan: Continue nocturnal CPAP per home regimen. VBG with morning labs. (6) Essential hypertension: Status: Chronic Assessment and plan: Lisinopril on hold as above. (7) Right leg injury: Status: Acute Assessment and plan: 1 week or so fell, anterior davison with 2 scabs, erythema, not warmer than left leg, will watch, doubt cellulitis - denies pain, left leg very similar but without scabs (8) Prediabetes: Status: Chronic Assessment and plan: Chronic Glucose [address] Hogan Subjective Subjective Patient reports: no new complaints, voiding w/o difficulty, bowel movement and afebrile; denies nausea Interval history since last seen: Drinking plenty of water and drinking juice, voiding on his own. Exam Narrative Exam Narrative: General the patient is in no acute physical distress, affect appropriate HEENT pupils are equal round and reactive to light, no conjunctival pallor, no scleral icterus, posterior pharynx clear with no erythema or exudate, mucosa moist Neck supple, no lymphadenopathy or thyromegaly, carotid pulses are normal and symmetric, no bruits CV regular, no murmur or gallop, no JVD Lungs clear bilaterally, no crackles or wheezes Abdomen soft, nontender, bowel sounds are normal, no organomegaly or masses Extremities chronic appearing 1+ pitting edema with some blanching erythema, right lower leg anterior davison with two scabbed areas (states he fell a week or so ago, doesn't feel warmer than other leg) distal pulses are normal and symmetric Joints no inflammatory changes noted Neurologic no tremor, strength and sensation normal and symmetric Objective Last Vital Signs Temp 36.7 C 02/24/23 14:41 Pulse 77 02/24/23 14:41 Resp 18 02/24/23 14:41 BP 107/71 02/24/23 14:41 Pulse Ox 97 02/24/23 14:41 Laboratory Results - last 24 hr 02/23/23 02/23/23 02/23/23 19:32 20:15 22:01 WBC 15.50 H RBC 5.16 Hgb 14.6 Hct 44.5 MCV 86 MCH 28.3 MCHC 32.8 RDW 13.4 Plt Count 328 MPV 11.1 H Immature Gran % 0.5 Neutrophils % 79.6 Lymphocytes % 10.4 Monocytes % 7.7 Eosinophils % 1.3 Basophils % 0.5 Nucleated RBC % 0.0 Absolute Neutrophils 12.34 H Absolute Lymphocytes 1.61 Absolute Monocytes 1.19 H Absolute Eosinophils 0.20 Absolute Basophils 0.08 VBG pH VBG pCO2 VBG pO2 VBG HCO3 VBG Total CO2 VBG O2 Saturation VBG Base Excess Sodium 137 Potassium 3.3 L Chloride 93 L Carbon Dioxide 37.0 H Anion Gap 7.0 BUN 43 H Creatinine 2.7 H Est GFR (CKD-EPI 2020) 26.99 Glucose 130 H Calcium 8.8 Magnesium 3.1 H Total Bilirubin 0.6 AST 16 ALT 16 Alkaline Phosphatase 72 Troponin I < 50 < 50 Total Protein 8.5 H Albumin 3.6 02/24/23 02/24/23 02/24/23 06:38 06:38 06:38 WBC 13.43 H RBC 5.69 Hgb 16.2 Hct 49.0 MCV 86 MCH 28.5 MCHC 33.1 RDW 13.3 Plt Count 279 MPV 12.2 H Immature Gran % Neutrophils % Lymphocytes % Monocytes % Eosinophils % Basophils % Nucleated RBC % Absolute Neutrophils Absolute Lymphocytes Absolute Monocytes Absolute Eosinophils Absolute Basophils VBG pH 7.37 VBG pCO2 70 H* VBG pO2 34 VBG HCO3 40 H VBG Total CO2 36 H VBG O2 Saturation 65 VBG Base Excess 15 H Sodium 138 Potassium 3.3 L Chloride 96 L Carbon Dioxide 37.3 H Anion Gap 4.7 BUN 39 H Creatinine 2.1 H Est GFR (CKD-EPI 2020) 36.49 Glucose 121 H Calcium 9.0 Magnesium 3.4 H Total Bilirubin AST ALT Alkaline Phosphatase Troponin I Total Protein Albumin Time Spent with Patient Time Spent with Patient: 35-49 minutes Time was spent: preparing to see the patient(eg.review tests), ordering medications,tests, procedures, referring, communicating with other health intensive care anaesthetist, indepentently interpreting results, counseling the patient and care coordination
[2023-02-24] MEDS: CIPROFLOXACIN 400 MG/200 ML BAG 200 MG IVPB (21:31)
[2023-02-24] MEDS: Mirtazapine 15 MG TAB PO (21:31)
[2023-02-25] VITALS (8 sets, daily range): BP systolic 90–128; BP diastolic 41–78; PULSE 76–91; RESP 16–20; TEMP 36–37.1; O2SAT 93–95
[2023-02-25] MEDS: Lactated Ringers 1,000 ML 75 ML IV (02:22)
[2023-02-25 07:24] LABS: Abs Immature Grans 0.07 10^3/uL (0.0-0.06); Absolute Basophil Count 0.07 10^3/uL (0.0-0.2); Absolute Eosinophil Count 0.38 10^3/uL (0.0-0.7); Absolute Lymphocyte Count 1.28 10^3/uL (1.2-3.4); Absolute Monocyte Count 0.88 10^3/uL (0.1-0.8); Absolute Neutrophil Count 7.08 10^3/uL (1.2-6.7); Basophils % 0.7; Eosinophils % 3.9; HGB 13.7 g/dL (13.5-17.5); Immature Grans % 0.7; Lymphocytes % 13.1; MCH 28.4 pg (27.0-33.0); MCHC 32.6 % (32.0-36.0); MCV 87 fL (80-95); MPV 11.6 fL (8.0-11.0); Neutrophils % 72.6; Platelet Count 302 10^3/uL (130-400); RBC 4.83 10^6/uL (4.36-5.78); RDW 13.2 % (11.8-14.1); WBC 9.76 10^3/uL (4.4-10.8)
[2023-02-25 07:39] LABS: Anion Gap 3.9 mmol/L (3-11); BUN 28 mg/dL (7-18); CO2 39.1 mmol/L (21.0-32.0); CREATININE 1.6 mg/dL (0.70-1.30); Calcium 8.9 mg/dL (8.5-10.1); Chloride 97 mmol/L (98-107); Estimated GFR 50.57 (mL/min/1.73m2); Glucose 112 mg/dL (74-106); Magnesium 2.9 mg/dL (1.8-2.4); Potassium 3.2 mmol/L (3.5-5.1); Sodium 140 mmol/L (136-145)
[2023-02-25] MEDS: Budesonide/Formoterol 160/4.5 6 GM 60 PUFF INH IH ×2 (07:39→19:15)
--- NOTE | 2023-02-25 07:52 | UCONE_ITS ---
Date of service: 02/25/23 Time of Service: 12:09 Assessment and Plan Assessment and plan (1) Anal or rectal pain: Status: Acute Assessment and plan: He has no sign of an acute bacterial prostatitis based on his urinalysis. He has never had a documented urinary tract infection, so chronic bacterial p rostatitis is also unlikely. I do not see any indication that a long course of antibiotics would be helpful. He might benefit from some of the measures that we use for chronic pelvic floor dysfunction. These measures include muscle relaxers, anti-inflammatory agents and pelvic floor physical therapy once his acute pelvic floor pain is under better control. History of Present Illness History of Present Illness Chief Complaint: Pelvic pain Narrative: This is is a 57-year-old gentleman who is admitted with refractory pelvic pain. He tells me this discomfort has been going on for months, but it escalated to the point where he required admission this weekend. He describes the pain as being internal just inside the anal verge. He likens the pain to previous hemorrhoid. The pain will always occur when he moves his bowels and after he is done urinating. He does not actually have any pain while he urinates. Otherwise, the pain is a bit unpredictable. What helps 1 day will not help another day. The 1 thing that did seem to trigger the pain since his admission was a digital rectal exam. He tells me that when he voids, he might have some slight hesitancy at first. He will then void with a good stream. He will have no dysuria or gross hematuria. We will have escalation of his pelvic discomfort after he is done voiding. He has no known history of kidney stones or urinary tract infection. He has not had any previous urologic surgery. Review of Systems Narrative: No fevers or chills No vision change or dysphasia No diabetes or thyroid dysfunction Shortness of breath. No hemoptysis Peripheral edema. No chest pain or palpitations No nausea, vomiting, hepatitis, ulcers, jaundice No seizures, strokes or peripheral neuropathy No bleeding disorders or anemia No gout PFSH All Active Problems (Updated 02/24/23 @ 20:09 by Radha Jade NP) Right leg injury (Acute) Hypokalemia (Acute) Cellulitis of right lower extremity (Acute) Acute kidney injury (Acute) Anal or rectal pain (Acute) Pain in rectum (Acute) Right heart failure (Acute) Diastolic CHF (Acute) Asthma (Chronic) Obesity hypoventilation syndrome (Acute) Essential hypertension (Chronic) Chewing tobacco use (Chronic) Severe obstructive sleep apnea (Chronic) Original PSG 12/02/16; BIPAP Prediabetes (Chronic) Depressive disorder (Chronic) Insomnia (Chronic) Morbid obesity with BMI of 60.0-69.9, adult (Chronic) Lower extremity ulceration (Acute) Acute on chronic respiratory failure with hypoxia and hypercapnia (Acute) Venous stasis dermatitis (Acute) Dyspnea (Acute) Weight gain with edema (Acute) Medical History Hyperlipidemia Surgical History H/O umbilical hernia repair (05/26/14) S/P appendectomy S/P colonoscopy (12/14/16) Family History Mother , at 70 from metastatic breast cancer Essential hypertension Metastatic breast cancer Type 2 diabetes mellitus Lung disease Cancer Father No problems noted. Sister Depression Maternal Grandfather Heart disease Lung cancer Maternal Grandmother COPD with emphysema Paternal Grandfather No problems noted. Paternal Grandmother No problems noted. 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 Pets and animals: No Sexually active: Yes Do you think of yourself as: straight/heterosexual Current gender identity: male What is your relationship status?: How often do you talk on the phone with friends or family?: three or more times per week How often do you get together with friends or relatives?: three or more times per week How often do you attend confucianism or moravian services?: decline to answer Do you belong to any clubs or organized social groups?: decline to answer Panel score (0-1 are the most socially isolated patients): 1 What type of physical activity do you participate in: walking Duration: 15-30 minutes/day Frequency: daily Kay/Roman Catholic: none Special kay needs: No Seatbelt use: never Helmet use: Yes Helmet use: always Drive intox or ride w/intox shuttle driver: No Do you feel safe at home: Yes Do you feel safe in your relationship?: Yes Exam Narrative Exam Narrative: He is an obese gentleman. He appears uncomfortable but does not appear septic or toxic His vital signs are documented elsewhere His abdomen is soft with no mass He asked me not to do a digital rectal exam on him at this point given the severity of pain that his last exam caused He is awake and alert I reviewed his records and our EMR system. He has never had a urinalysis suggestive of a urinary tract infection. He has never had a positive urine culture. I did find an ER visit from back in 2013 during which the patient complained of testicular pain. He was presumptively diagnosed with epididymitis and started on Cipro, but I find no test documenting a bacterial etiology at that time. His 2 most recent urinalysis are not supportive of a bacterial infection. Results Last Vital Signs Temp 36.8 C 02/25/23 07:16 Pulse 77 02/25/23 07:16 Resp 16 02/25/23 07:16 BP 98/67 L 02/25/23 07:16 Pulse Ox 94 02/25/23 07:16 Labs 02/25/23 06:45 02/25/23 06:45 Labs: Laboratory Results - last 24 hr 02/24/23 02/24/23 02/24/23 06:38 06:38 06:38 WBC 13.43 H RBC 5.69 Hgb 16.2 Hct 49.0 MCV 86 MCH 28.5 MCHC 33.1 RDW 13.3 Plt Count 279 MPV 12.2 H Immature Gran % Neutrophils % Lymphocytes % Monocytes % Eosinophils % Basophils % Nucleated RBC % Absolute Neutrophils Absolute Lymphocytes Absolute Monocytes Absolute Eosinophils Absolute Basophils VBG pH 7.37 VBG pCO2 70 H* VBG pO2 34 VBG HCO3 40 H VBG Total CO2 36 H VBG O2 Saturation 65 VBG Base Excess 15 H Sodium 138 Potassium 3.3 L Chloride 96 L Carbon Dioxide 37.3 H Anion Gap 4.7 BUN 39 H Creatinine 2.1 H Est GFR (CKD-EPI 2020) 36.49 Glucose 121 H Calcium 9.0 Magnesium 3.4 H 02/25/23 02/25/23 06:45 06:45 WBC 9.76 RBC 4.83 Hgb 13.7 D Hct 42.0 MCV 87 MCH 28.4 MCHC 32.6 RDW 13.2 Plt Count 302 MPV 11.6 H Immature Gran % 0.7 Neutrophils % 72.6 Lymphocytes % 13.1 Monocytes % 9.0 Eosinophils % 3.9 Basophils % 0.7 Nucleated RBC % 0.0 Absolute Neutrophils 7.08 H Absolute Lymphocytes 1.28 Absolute Monocytes 0.88 H Absolute Eosinophils 0.38 Absolute Basophils 0.07 VBG pH VBG pCO2 VBG pO2 VBG HCO3 VBG Total CO2 VBG O2 Saturation VBG Base Excess Sodium 140 Potassium 3.2 L Chloride 97 L Carbon Dioxide 39.1 H Anion Gap 3.9 BUN 28 H Creatinine 1.6 H Est GFR (CKD-EPI 2020) 50.57 Glucose 112 H Calcium 8.9 Magnesium 2.9 H
[2023-02-25] MEDS: CIPROFLOXACIN 400 MG/200 ML BAG 200 MG IVPB (09:11)
[2023-02-25] MEDS: Escitalopram 20 MG TAB PO (09:12)
[2023-02-25] MEDS: POTASSIUM CHLORIDE 20 MEQ/100 ML BAG 50 MEQ IVPB ×2 (09:12→12:08)
[2023-02-25] MEDS: Potassium Chloride 20 MEQ TABCR 40 MEQ PO (09:12)
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
--- NOTE | 2023-02-25 11:22 | RESPIRATORY ---
Patient has an Astral NHV with settings of: Mode IVAPS-AE Rate 15 EPAP min 10/max 15 PS min 6/max 30 with 2L of oxygen bled-in at night. He uses an AirFit F20 size Medium FFM and the DME is [facility] for both the machine and his oxygen. Patient stated to RT that his prescription is for only 1L but he usually runs it on 2L as he feels more comfortable doing so. Patient states besides oxygen being used nocturnal, he also uses it PRN throughout the day.
[2023-02-25] MEDS: HYDROmorphone 2 MG/ML SYR 1 MG IVP (12:01)
[2023-02-25] MEDS: Tamsulosin 0.4 MG CAPCR PO (17:17)
[2023-02-25] MEDS: hydrOXYzine PAMOATE 25 MG CAP PO ×2 (17:52→19:59)
--- NOTE | 2023-02-25 18:17 | W.PM.PROGNOT ---
Date of Service Date of service: 02/25/23 Time of Service: 17:00 Assessment and Plan Assessment and plan (1) Acute kidney injury: Status: Acute Assessment and plan: continue replacing potassium; Creatinine 1.6 (2) Anal or rectal pain: Status: Acute Assessment and plan: Surgery suggests out patient follow up for further work up and short course of abx. Urology saw him today, d/c Cipro; try valium pr, antinflammatories, stool softners Patient refuses bowel meds hurts with hard or soft or runny movements Mag citrate this denisse Valium pr obtained from [employer] and will be given as patient's own, we do not have rectal valium in house currently Ibuprofen mara 800 mg tid Start tamsulosin 0.4 mg daily Start Lyrica 75 mg nightly Hydroxyzine 25 mg TID (3) Hypokalemia: Status: Acute Assessment and plan: 3.2 - repleted; monitor - recheck 1999 (4) Diastolic CHF: Status: Acute Assessment and plan: No acute respiratory issues. Holding diuretics as above. (5) Severe obstructive sleep apnea: Status: Chronic Assessment and plan: Continue nocturnal CPAP per home regimen. VBG with morning labs. (6) Essential hypertension: Status: Chronic Assessment and plan: Lisinopril on hold as above. (7) Right leg injury: Status: Acute Assessment and plan: 1 week or so fell, anterior davison with 2 scabs, erythema, not warmer than left leg, will watch, doubt cellulitis - denies pain, left leg very similar but without scabs (8) Prediabetes: Status: Chronic Assessment and plan: Chronic Glucose [address] Hogan (9) Constipation: Status: Acute Assessment and plan: Patient refusing routine bowel regime - Try mag citrate today Subjective Subjective Patient reports: still having pain, tolerating liquids well, tolerating a regular diet, voiding w/o difficulty and afebrile; denies flatus, bowel movement, diarrhea, nausea or vomiting Interval history since last seen: Jaydon continues to have rectal pain, he has not had BM in several days, continues to decline bowel meds. Objective Last Vital Signs Temp 36.4 C L 02/25/23 15:48 Pulse 91 H 02/25/23 15:48 Resp 20 02/25/23 15:48 BP 104/72 02/25/23 15:48 Pulse Ox 94 02/25/23 15:48 Laboratory Results - last 24 hr 02/25/23 02/25/23 06:45 06:45 WBC 9.76 RBC 4.83 Hgb 13.7 D Hct 42.0 MCV 87 MCH 28.4 MCHC 32.6 RDW 13.2 Plt Count 302 MPV 11.6 H Immature Gran % 0.7 Neutrophils % 72.6 Lymphocytes % 13.1 Monocytes % 9.0 Eosinophils % 3.9 Basophils % 0.7 Nucleated RBC % 0.0 Absolute Neutrophils 7.08 H Absolute Lymphocytes 1.28 Absolute Monocytes 0.88 H Absolute Eosinophils 0.38 Absolute Basophils 0.07 Sodium 140 Potassium 3.2 L Chloride 97 L Carbon Dioxide 39.1 H Anion Gap 3.9 BUN 28 H Creatinine 1.6 H Est GFR (CKD-EPI 2020) 50.57 Glucose 112 H Calcium 8.9 Magnesium 2.9 H Time Spent with Patient Time Spent with Patient: >50 minutes Time was spent: preparing to see the patient(eg.review tests), ordering medications,tests, procedures, referring, communicating with other health healthcare management consultant, indepentently interpreting results, counseling the patient and care coordination
[2023-02-25] MEDS: Ibuprofen 800 MG TAB PO ×2 (18:26→21:43)
[2023-02-25] MEDS: Mirtazapine 15 MG TAB PO (19:59)
[2023-02-25 21:09] LABS: Anion Gap 3.5 mmol/L (3-11); BUN 27 mg/dL (7-18); CO2 35.5 mmol/L (21.0-32.0); CREATININE 1.4 mg/dL (0.70-1.30); Calcium 8.9 mg/dL (8.5-10.1); Chloride 97 mmol/L (98-107); Estimated GFR 59.36 (mL/min/1.73m2); Glucose 107 mg/dL (74-106); Potassium 3.2 mmol/L (3.5-5.1); Sodium 136 mmol/L (136-145)
[2023-02-25] MEDS: Magnesium Citrate 300 ML BTL PO (21:44)
[2023-02-26 03:20] VITALS: BP 130/70; PULSE 78; RESP 20; TEMP 36.3; O2SAT 95
[2023-02-26 07:32] VITALS: BP 124/67; PULSE 81; RESP 16; TEMP 36; O2SAT 93
[2023-02-26 07:36] LABS: Abs Immature Grans 0.09 10^3/uL (0.0-0.06); Absolute Basophil Count 0.07 10^3/uL (0.0-0.2); Absolute Eosinophil Count 0.43 10^3/uL (0.0-0.7); Absolute Lymphocyte Count 1.45 10^3/uL (1.2-3.4); Absolute Monocyte Count 0.96 10^3/uL (0.1-0.8); Absolute Neutrophil Count 6.29 10^3/uL (1.2-6.7); Basophils % 0.8; Eosinophils % 4.6; HCT 42.1 % (40.0-50.0); HGB 13.8 g/dL (13.5-17.5); Lymphocytes % 15.6; MCH 28.2 pg (27.0-33.0); MCHC 32.8 % (32.0-36.0); MCV 86 fL (80-95); MPV 11.4 fL (8.0-11.0); Monocytes % 10.3; Neutrophils % 67.7; Platelet Count 308 10^3/uL (130-400); RBC 4.89 10^6/uL (4.36-5.78); RDW 13.2 % (11.8-14.1); RDW-SD 40.9 fL; WBC 9.29 10^3/uL (4.4-10.8)
[2023-02-26 08:09] LABS: Anion Gap 4.3 mmol/L (3-11); BUN 23 mg/dL (7-18); CO2 35.7 mmol/L (21.0-32.0); CREATININE 1.3 mg/dL (0.70-1.30); Chloride 100 mmol/L (98-107); Estimated GFR 64.88 (mL/min/1.73m2); Glucose 117 mg/dL (74-106); Magnesium 2.8 mg/dL (1.8-2.4); Potassium 3.2 mmol/L (3.5-5.1); Sodium 140 mmol/L (136-145)
[2023-02-26] MEDS: Ibuprofen 800 MG TAB PO (08:42)
[2023-02-26] MEDS: hydrOXYzine PAMOATE 25 MG CAP PO (08:43)
[2023-02-26] MEDS: Escitalopram 20 MG TAB PO (08:43)
[2023-02-26] MEDS: Tamsulosin 0.4 MG CAPCR PO (08:43)
[2023-02-26] MEDS: Budesonide/Formoterol 160/4.5 6 GM 60 PUFF INH IH (08:45)
--- NOTE | 2023-02-26 09:17 | PDOC.CMPRO ---
Date of service: 02/26/23 Time of Service: 09:17 Care Management Progress Note Progress Note Text Progress Note Text: S:Aamir A: Aamir is a 57 year old man admitted on 02/23/23 with CR P:Anticipate Jaydon will return home with no additional services.? He will have outpatient follow up with his PCP and Pulmonology and transport via private vehicle with family.CM to follow and assess for discharge needs.
--- NOTE | 2023-02-26 10:08 | W.PM.DS.N ---
Date of service: 02/26/23 Time of Service: 10:08 DS: Diagnosis Discharge Diagnosis (1) Acute kidney injury: Status: Acute (2) Anal or rectal pain: Status: Acute (3) Hypokalemia: Status: Acute (4) Diastolic CHF: Status: Acute (5) Severe obstructive sleep apnea: Status: Chronic (6) Essential hypertension: Status: Chronic (7) Right leg injury: Status: Acute (8) Prediabetes: Status: Chronic (9) Constipation: Status: Acute Discharge Plan Disposition Patient Disposition: Home Condition: Good Discharge Details Reason For Visit: Acute Kidney Injury Admit Date/Time: 02/23/23 19:11 Admit Provider: Hector Prince Attending Provider: Hector Prince Primary Care Provider: Sanjeev Brewer Hospital Course Hospital Course: This 57-year-old male patient with past medical history of sleep apnea, compliant with nocturnal CPAP, also uses oxygen during the day for question of asthma although details are not clear and he states the work-up is still in progress.? He is prediabetic, denies any history of renal disease, uses multiple diuretics for lower extremity edema but denies any history of heart failure or CAD.? Former smoker and occasional marijuana user but denied any drug use or alcohol intake presented to the [facility] ED on 02/23/23 with complaint of excruciating rectal pain for several days.? He tried outpatient management with some topical therapies and oral analgesics without relief. Subjectively had a fever but no rigors and other than mild urinary frequency no other symptoms including urgency, dysuria, purulent discharge.? Pain is worse with moving his bowels or passing gas and he has drastically reduced his food intake to prevent these episodes. Denied any abdominal pain, nausea, vomiting.? Some difficulty initiating urine stream but no sensation of incomplete emptying. He was evaluated by surgery and urology. He had unremarkable labs and diagnostic studies, urine negatvie for infection. He was treated for pelvic floor dysfunction and was started on Lyrica, Hydoxyzine, Tamsulosin for 30 days, Valium rectal gel, ibuprofen with referral to PT. He was told not to take viagra with tamsulosin as it might decrease the efficacy. He did improve here in the hospital. He was able to have BM without pain and had no pain at rest. He was told to take miralax twice daily to keep his stools soft. He was discharged to home stable. ? Home Meds and New Rx's Prescriptions: New diazepam 2.[address] Q12H PRNQty: 1 0RF hydroxyzine pamoate [Vistaril] 25 mg Capsule 25 mg PO TID Qty: 90 0RF ibuprofen 800 mg Tablet 800 mg PO TID Qty: 90 0RF pregabalin 75 mg Capsule 75 mg PO HS Qty: 30 0RF tamsulosin 0.4 mg Capsule 0.4 mg PO DAILY Qty: 30 0RF Continued escitalopram oxalate 20 mg tablet 20 mg PO DAILY Qty: 90 3RF Rx Instructions: Take 1 tablet daily lisinopril 40 mg tablet 40 mg PO DAILY Qty: 90 4RF Rx Instructions: Take 1 tablet daily sildenafil [Viagra] 50 mg tablet 50 mg PO DAILY PRN (Reason: sexual activity) Qty: 60 4RF Rx Instructions: Take 1 tablet 1 hour before sexual activity; may be taken up to 4 hours before sexual activity metolazone 2.5 mg tablet 2.5 mg PO .COMPLEX Rx Instructions: 2.5 mg orally , Saturday; take 30 mins before lasix albuterol sulfate 2.5 mg /3 mL (0.083 %) solution for nebulization 2.5 mg inhalation QID PRN (Reason: shortness of breath or wheezing) Qty: 180 12RF fluticasone propion-salmeterol [Advair HFA] 230-21 mcg/actuation HFA aerosol inhaler 2 puff inhalation BID Qty: 12 12RF (DME) Oxygen Tank See Rx Instructions .Route Qty: 99 0RF Rx Instructions: 1LPM as needed with exertion or rest albuterol sulfate 90 mcg/actuation HFA aerosol inhaler 2 inh inhalation Q4H PRN (Reason: shortness of breath or wheezing) Qty: 18 1RF furosemide 80 mg tablet 80 mg PO BID Qty: 180 3RF mirtazapine 15 mg tablet 15 mg PO DAILY Qty: 30 0RF Rx Instructions: Take 1/2 a tab (7.5mg) for the first week. Increase to 1 tab (15mg). Proctofoam HC 1-1 % foam [address] QID PRN (Reason: hemorrhoids) Qty: 10 1RF Discharge Instructions Instructions: Hydroxyzine (By mouth), Tamsulosin (By mouth), Pregabalin (By mouth) Additional Instructions: Antibiotics are not beneficial. There is no infection. Physical therapy aimed at myofascial release may have benefit in patients with pelvic floor muscle spasm. A cognitive behavioral treatment program may be beneficial in some patients with concomitant psychosocial problems. Benefit has also been suggested with acupuncture and extracorporeal shock wave therapy. Take Tamsulosin 0.4 mg daily. Tamsulosin does interact with Viagra, do not take together as it will decrease the efficacy of Viagra. Take hydroxyzine 25 mg three times a day for 4 weeks. Take Ibuprofen 600 mg three times a day - with food - for 2 weeks. Take Lyrica 75 mg daily, PCP can increase as needed. Use valium gel rectally once as needed. Take miralax or docusate sodium twice every day to help with bowel movements Stand Alone Forms: Nursing Discharge Form Referrals: Sanjeev Brewer, DATA WAREHOUSE ADMINISTRATOR [Primary Care Provider] - 03/01/23 8:00 am (This patient was seen by surgery and urology while in patient. He should be followed up closely. Lyrica can be increased as needed. Acupuncture has been effective as well as physical therapy - I did send a referral for PT. No need for follow up with Dr Stein unless there is a new urinary symptom or infection. Antibiotics have no benefit at this time. ) Giorgio Gardner,InPatient [OTHER] - 03/13/23 8:45 am (Physical therapy aimed at myofascial release may have benefit in patients with pelvic floor muscle spasm.) Activity:: Activity as Tolerated Equipment/Supplies:: No Equipment Needed Diet:: As Tolerated Discharge Orders Discharge Orders: Discharge Order (Routine); Ordered 02/26/23 Ordered By: Radha Jade Discharge Data Discharge Date/Time-TO BE ENTERED AT DEPARTURE: 02/26/23 12:00 DS: Summary Time Spent with Patient providing and/or coordinating discharge services: Greater than 30 minutes Status at Discharge Functional status at discharge: independent ambulation Overall status at discharge: patient is back to baseline Mental Status: mental status grossly normal Speech and Movement: speech and movement normal Mood: congruent mood Affect: normal affect Exam Narrative Exam Narrative: General the patient is in no acute physical distress, affect appropriate HEENT pupils are equal round and reactive to light, no conjunctival pallor, no scleral icterus, posterior pharynx clear with no erythema or exudate, mucosa moist Neck supple, no lymphadenopathy or thyromegaly, carotid pulses are normal and symmetric, no bruits CV regular, no murmur or gallop, no JVD Lungs clear bilaterally, no crackles or wheezes Abdomen soft, nontender, bowel sounds are normal, no organomegaly or masses Extremities chronic appearing 1+ pitting edema with some blanching erythema, right lower leg anterior davison with two scabbed areas (states he fell a week or so ago, doesn't feel warmer than other leg) distal pulses are normal and symmetric Joints no inflammatory changes noted Neurologic no tremor, strength and sensation normal and symmetric Psych Mental Status: mental status grossly normal Speech and Movement: speech and movement normal Mood: congruent mood Affect: normal affect DS: Data Vitals/I&O Vitals and I&O: Vital Signs Temperature 36.0 C L 02/26/23 07:32 Temperature Source Tympanic 02/26/23 07:32 Pulse 81 02/26/23 07:32 Pulse Rhythm Regular 02/25/23 22:01 Respiratory Rate 16 02/26/23 07:32 Respiratory Effort Normal 02/25/23 22:01 Respiratory Depth Normal 02/25/23 22:01 Respiratory Pattern Normal 02/25/23 22:01 Blood Pressure 124/67 02/26/23 07:32 Blood Pressure Mean 84 02/23/23 12:16 Blood Pressure Position Sitting 02/23/23 06:25 Pulse Oximetry 93 02/26/23 07:32 Oxygen Delivery Method Room Air 02/26/23 07:32 Oxygen Flow Rate 2 02/26/23 08:46 Pain Level 0 02/26/23 03:20 Comment pT O2 ranged from 89-93% sitting on side of bed talking 02/24/23 09:40 Intake & Output 02/25/23 02/25/23 02/26/23 11:59 23:59 11:59 Intake Total 1610 / 2650 1040 / 2650 1000 / 1000 Output Total 999 Balance 610 / 550 -60 / 550 1000 / 1000 Weight 179.197 kg Intake: IV 1210 / 1510 300 / 1510 1000 / 1000 Oral 400 / 1140 740 / 1140 Output: Urine 999 Other: Urine Color Yellow Yellow Urine Appearance Clear Clear Urine Odor Normal Normal Voiding Methods Toilet Toilet Data Completed and Pending Labs on day of discharge: Labs from last 24 hours 02/26/23 02/26/23 02/25/23 06:40 06:40 20:33 WBC 9.29 RBC 4.89 Hgb 13.8 Hct 42.1 MCV 86 MCH 28.2 MCHC 32.8 RDW 13.2 Plt Count 308 MPV 11.4 H Immature Gran % 1.0 Neutrophils % 67.7 Lymphocytes % 15.6 Monocytes % 10.3 Eosinophils % 4.6 Basophils % 0.8 Nucleated RBC % 0.0 Absolute Neutrophils 6.29 Absolute Lymphocytes 1.45 Absolute Monocytes 0.96 H Absolute Eosinophils 0.43 Absolute Basophils 0.07 Sodium 140 136 Potassium 3.2 L 3.2 L Chloride 100 97 L Carbon Dioxide 35.7 H 35.5 H Anion Gap 4.3 3.5 BUN 23 H 27 H Creatinine 1.3 1.4 H Est GFR (CKD-EPI 2020) 64.88 59.36 Glucose 117 H 107 H Calcium 9.0 8.9 Magnesium 2.8 H Preliminary micro results at discharge 02/23/23 12:05 Blood Culture - Preliminary Blood NO GROWTH 48 HOURS 02/23/23 12:13 Blood Culture - Preliminary Blood NO GROWTH 48 HOURS PFSH All Active Problems (Updated 02/25/23 @ 20:05 by Radha Jade NP) Constipation (Acute) Right leg injury (Acute) Hypokalemia (Acute) Cellulitis of right lower extremity (Acute) Acute kidney injury (Acute) Anal or rectal pain (Acute) Pain in rectum (Acute) Right heart failure (Acute) Diastolic CHF (Acute) Asthma (Chronic) Obesity hypoventilation syndrome (Acute) Essential hypertension (Chronic) Chewing tobacco use (Chronic) Severe obstructive sleep apnea (Chronic) Original PSG 12/02/16; BIPAP Prediabetes (Chronic) Depressive disorder (Chronic) Insomnia (Chronic) Morbid obesity with BMI of 60.0-69.9, adult (Chronic) Lower extremity ulceration (Acute) Acute on chronic respiratory failure with hypoxia and hypercapnia (Acute) Venous stasis dermatitis (Acute) Dyspnea (Acute) Weight gain with edema (Acute) Medical History Hyperlipidemia Surgical History H/O umbilical hernia repair (05/26/14) S/P appendectomy S/P colonoscopy (12/14/16) Family History Mother , at 70 from metastatic breast cancer Essential hypertension Metastatic breast cancer Type 2 diabetes mellitus Lung disease Cancer Father No problems noted. Sister Depression Maternal Grandfather Heart disease Lung cancer Maternal Grandmother COPD with emphysema Paternal Grandfather No problems noted. Paternal Grandmother No problems noted. 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 Pets and animals: No Sexually active: Yes Do you think of yourself as: straight/heterosexual Current gender identity: male What is your relationship status?: How often do you talk on the phone with friends or family?: three or more times per week How often do you get together with friends or relatives?: three or more times per week How often do you attend yazidi or catholic services?: decline to answer Do you belong to any clubs or organized social groups?: decline to answer Panel score (0-1 are the most socially isolated patients): 1 What type of physical activity do you participate in: walking Duration: 15-30 minutes/day Frequency: daily Kay/Anglican: none Special kay needs: No Seatbelt use: never Helmet use: Yes Helmet use: always Drive intox or ride w/intox cab driver: No Do you feel safe at home: Yes Do you feel safe in your relationship?: Yes Time Spent with Patient Time Spent with Patient: 45-69 minutes Time was spent: preparing to see the patient(eg.review tests), ordering medications,tests, procedures, referring, communicating with other health youth career specialist, indepentently interpreting results, counseling the patient and care coordination
--- NOTE | 2023-02-26 16:25 | PDOC.CMDIS ---
LACE Index Scoring Tool Questions: Length of Stay (in days): 3 Was the patient admitted via the E.D.?: Yes Comorbidities: Congestive Heart Failure and Chronic Pulmonary Disease E.D. Visits: 2 Answers: Total Score: 13 Risk of Readmission: High Risk Care Management Discharge Plan Reason for Hospitalization: CR Discharge Plan: Aamir will return home with no additional services. He will have outpatient follow up with his PCP and Pulmonology and transport via private vehicle with family. Patient/Family Education Needs: Review discharge instructions including activity, diet, medications, limitations, discuss Ask Me Three.
== END 2023-02-26 12:00 | disposition home or self-care (01) | DRG 394 ==
LOC: ER 19:17 → MS 19:37
PROVIDERS: Emergency Medicine Emergency Medical Services; Nurse Practitioner Family; Admitting Provider Hospitalist; Emergency Provider Student in an Organized Health Care Education/Training Program; PCP Nurse Practitioner Family; Visit Provider Hospitalist
DX: K62.89 Other specified diseases of anus and rectum (principal); E66.2 Morbid (severe) obesity with alveolar hypoventilation; N17.9 Acute kidney failure, unspecified; Z68.44 Body mass index [BMI] 60.0-69.9, adult; I50.30 Unspecified diastolic (congestive) heart failure; D72.829 Elevated white blood cell count, unspecified; Z99.81 Dependence on supplemental oxygen; F17.290 Nicotine dependence, other tobacco product, uncomplicated; J45.909 Unspecified asthma, uncomplicated; R73.03 Prediabetes; F32.A Depression, unspecified; I87.2 Venous insufficiency (chronic) (peripheral); E78.5 Hyperlipidemia, unspecified; E87.6 Hypokalemia; I11.0 Hypertensive heart disease with heart failure; R50.9 Fever, unspecified; K59.00 Constipation, unspecified
CPT/HCPCS: 36415; 80048; 80053; 82805; 85027; 87040; 94640; 96361; 96365; 96367; 96375; 96376; 99285; 74176; 81003; 81015; 83605; 83735; 84484; 85025; 87086; 94664; 99223; 99232; 99239; J0131; J0696; J0744; J1170; J3480

== ENCOUNTER 2023-03-09 18:32 | Emergency (ER) | payer MEDICAID, SELFPAY ==
[2023-03-09 18:37] VITALS: PULSE 100; RESP 18; TEMP 36.8; O2SAT 93
--- NOTE | 2023-03-09 18:52 | ED.GENADUL_ITS ---
Discharge Plan Disposition Patient Disposition: Home Condition: Good Discharge Details Clinical Impression: Constipation, Acute anal fissure Primary Care Provider: Sanjeev Brewer ED Provider: Jaydon Garay [place] Meds and New Rx's Prescriptions: New lidocaine HCl 2 % jelly in applicator 1 applic topical BID-QID PRNQty: 500 0RF nitroglycerin 0.4 % (w/w) ointment 1 inch NC BID Qty: 30 0RF Continued escitalopram oxalate 20 mg tablet 20 mg PO DAILY Qty: 90 3RF Rx Instructions: Take 1 tablet daily lisinopril 40 mg tablet 40 mg PO DAILY Qty: 90 4RF Rx Instructions: Take 1 tablet daily metolazone 2.5 mg tablet 2.5 mg PO .COMPLEX Rx Instructions: 2.5 mg orally , Saturday; take 30 mins before lasix albuterol sulfate 2.5 mg /3 mL (0.083 %) solution for nebulization 2.5 mg inhalation QID PRN (Reason: shortness of breath or wheezing) Qty: 180 12RF fluticasone propion-salmeterol [Advair HFA] 230-21 mcg/actuation HFA aerosol inhaler 2 puff inhalation BID Qty: 12 12RF (DME) Oxygen Tank See Rx Instructions .Route Qty: 99 0RF Rx Instructions: 1LPM as needed with exertion or rest albuterol sulfate 90 mcg/actuation HFA aerosol inhaler 2 inh inhalation Q4H PRN (Reason: shortness of breath or wheezing) Qty: 18 1RF furosemide 80 mg tablet 80 mg PO BID Qty: 180 3RF mirtazapine 15 mg tablet 15 mg PO DAILY Qty: 30 0RF Rx Instructions: Take 1/2 a tab (7.5mg) for the first week. Increase to 1 tab (15mg). hydroxyzine pamoate [Vistaril] 25 mg Capsule 25 mg PO TID Qty: 90 0RF ibuprofen 800 mg Tablet 800 mg PO TID Qty: 90 0RF pregabalin 75 mg Capsule 75 mg PO HS Qty: 30 0RF tamsulosin 0.4 mg Capsule 0.4 mg PO DAILY Qty: 30 0RF Held sildenafil [Viagra] 50 mg tablet 50 mg PO DAILY PRN (Reason: sexual activity) Qty: 60 4RF Hold Instructions: Resume on 04/06/23. Do not use while on tamsulosin and/or nitroglycerin ointment Rx Instructions: Take 1 tablet 1 hour before sexual activity; may be taken up to 4 hours before sexual activity Discontinued Proctofoam HC 1-1 % foam 1 applic NC QID PRN (Reason: hemorrhoids) Qty: 10 1RF diazepam 2.5 mg kit 5 mg NC Q12H PRNQty: 1 0RF Discharge Instructions Instructions: Constipation (ED), Anal Fissure (ED), Sitz Bath (DC) Additional Instructions: You were seen in the ED for acute onset of rectal pain and bleeding while passing a large stool today. This history and her exam is consistent with an acute anal fissure. Short-term and long-term treatment is advised. Short-term management is use of lidocaine jelly and nitroglycerin ointment both of which have been prescribed and sent to [facility]. You should also doing sitz bath 3-4 times a day. Increase fiber and water intake. Continue MiraLAX and Colace. Do not use your Viagra at all while using nitroglycerin. Alternate Tylenol with Motrin every 4 hours to help with the pain over the next few days while the ointments have a chance to work. Follow-up with primary care this week. Return to ED for inability to pass stool, fever, abdominal pain, other concerns. Medical Decision Making Patient with history of rectal pain and constipation. On medications for pelvic muscle relaxation. Still having problems with constipation. While passing stool today had acute onset of pain as well as a blood streak on the stool. On exam there is no hemorrhoids visualized. There is tenderness in the right rectal wall. There is no fluctuance appreciated. No stool or foreign body in rectal vault. History and exam consistent with acute anal fissure. Will treat with lidocaine jelly for pain relief, nitroglycerin ointment for anal sphincter relaxation, continue MiraLAX and Colace as well as instruct patient to increase fiber and water intake. Sitz bath to help with comfort. Alternate acetaminophen with ibuprofen to help with pain. Patient instructed not to use Viagra at all while using nitroglycerin ointment. Follow-up with primary care this week. Return precautions provided. Medical Records Medical records reviewed: Yes I reviewed the patient's medical records. Medical records narrative: admission from this month HPI General Mode of arrival: ambulatory . Date/Time Provider Initiated Documentation: 03/09/23 18:51 . Limitations to Documentation: no limitations . Information obtained by: patient . HPI Narrative: Patient presents to ED with acute onset of severe rectal pain while trying to pass a large stool at home. He reports that he noticed a streak of blood on the stool. He had been admitted here earlier this month with rectal pain with unremarkable work-up and was started on medications to help with pelvic floor muscle relaxation. Patient reports that he is taking these medications and was doing okay up until tonight. He had been having some discomfort with passage of stool but tonight had acute onset of severe pain. He denies any abdominal pain. He does report that he is still constipated despite Colace and MiraLAX. Denies any vomiting. Denies fever. Related Data Home Medications Medication Instructions Recorded Confirmed escitalopram oxalate 20 mg tablet 20 mg PO DAILY #90 tabs 09/18/22 03/09/23 lisinopril 40 mg tablet 40 mg PO DAILY #90 tabs 09/18/22 03/09/23 sildenafil 50 mg tablet (Viagra) 50 mg PO DAILY PRN sexual activity 09/18/22 03/09/23 #60 tabs albuterol sulfate 90 mcg/actuation 2 inh inhalation Q4H PRN shortness 11/16/22 03/09/23 aerosol inhaler of breath or wheezing #18 grams Oxygen #99 ea 12/21/22 03/09/23 fluticasone propionate 230 2 puff inhalation BID #12 grams 12/21/22 03/09/23 mcg-salmeterol 21 mcg/actuation HFA inhaler (Advair HFA) furosemide 80 mg tablet 80 mg PO BID #180 tabs 01/01/23 03/09/23 mirtazapine 15 mg tablet 15 mg PO DAILY #30 tabs 02/01/23 03/09/23 albuterol sulfate 2.5 mg/3 mL 2.5 mg (3 mL) inhalation QID PRN 02/19/23 03/09/23 (0.083 %) solution for nebulization shortness of breath or wheezing #180 mL metolazone 2.5 mg tablet 2.5 mg PO .COMPLEX 02/19/23 03/09/23 hydroxyzine pamoate 25 mg capsule 25 mg PO TID #90 caps 02/26/23 03/09/23 (Vistaril) ibuprofen 800 mg tablet 800 mg PO TID #90 tabs 02/26/23 03/09/23 pregabalin 75 mg capsule 75 mg PO HS #30 caps 02/26/23 03/09/23 tamsulosin 0.4 mg capsule 0.4 mg PO DAILY #30 caps 02/26/23 03/09/23 lidocaine HCl 2 % mucosal jelly in 1 applic topical BID-QID PRN #500 03/09/23 applicator mL nitroglycerin 0.4 % (w/w) rectal 1 inch NC BID #30 grams 03/09/23 ointment Previous Rx's Medication Instructions Recorded escitalopram oxalate 20 mg tablet 20 mg PO DAILY #90 tabs 09/18/22 lisinopril 40 mg tablet 40 mg PO DAILY #90 tabs 09/18/22 sildenafil 50 mg tablet (Viagra) 50 mg PO DAILY PRN sexual activity 09/18/22 #60 tabs albuterol sulfate 90 mcg/actuation 2 inh inhalation Q4H PRN shortness 11/16/22 aerosol inhaler of breath or wheezing #18 grams Oxygen #99 ea 12/21/22 fluticasone propionate 230 2 puff inhalation BID #12 grams 12/21/22 mcg-salmeterol 21 mcg/actuation HFA inhaler (Advair HFA) furosemide 80 mg tablet 80 mg PO BID #180 tabs 01/01/23 mirtazapine 15 mg tablet 15 mg PO DAILY #30 tabs 02/01/23 albuterol sulfate 2.5 mg/3 mL 2.5 mg (3 mL) inhalation QID PRN 02/19/23 (0.083 %) solution for nebulization shortness of breath or wheezing #180 mL hydroxyzine pamoate 25 mg capsule 25 mg PO TID #90 caps 02/26/23 (Vistaril) ibuprofen 800 mg tablet 800 mg PO TID #90 tabs 02/26/23 pregabalin 75 mg capsule 75 mg PO HS #30 caps 02/26/23 tamsulosin 0.4 mg capsule 0.4 mg PO DAILY #30 caps 02/26/23 lidocaine HCl 2 % mucosal jelly in 1 applic topical BID-QID PRN #500 03/09/23 applicator mL nitroglycerin 0.4 % (w/w) rectal 1 inch NC BID #30 grams 03/09/23 ointment Allergies Allergy/AdvReac Type Severity Reaction Status Date / Time plums AdvReac Unknown Uncoded 03/01/23 08:14 General Stated Complaint: Abd Prob MONTRELL: 3 Review of Systems Narrative: Per HPI PFSH All Active Problems Constipation (Acute) Acute anal fissure (Acute) Cellulitis of right lower extremity (Acute) Anal or rectal pain (Acute) Right heart failure (Acute) Chewing tobacco use (Chronic) Severe obstructive sleep apnea (Chronic) Original PSG 12/02/16; BIPAP Prediabetes (Chronic) Depressive disorder (Chronic) Insomnia (Chronic) Morbid obesity with BMI of 60.0-69.9, adult (Chronic) Lower extremity ulceration (Acute) Acute on chronic respiratory failure with hypoxia and hypercapnia (Acute) Venous stasis dermatitis (Acute) Dyspnea (Acute) Weight gain with edema (Acute) Medical History Asthma Diastolic CHF Essential hypertension Hyperlipidemia Obesity hypoventilation syndrome Surgical History H/O umbilical hernia repair (05/26/14) S/P appendectomy S/P colonoscopy (12/14/16) Family History Mother , at 70 from metastatic breast cancer Essential hypertension Metastatic breast cancer Type 2 diabetes mellitus Lung disease Cancer Father No problems noted. Sister Depression Maternal Grandfather Heart disease Lung cancer Maternal Grandmother COPD with emphysema Paternal Grandfather No problems noted. Paternal Grandmother No problems noted. 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 Pets and animals: No Sexually active: Yes Do you think of yourself as: straight/heterosexual Current gender identity: male What is your relationship status?: How often do you talk on the phone with friends or family?: three or more times per week How often do you get together with friends or relatives?: three or more times per week How often do you attend sikhism or confucianist services?: decline to answer Do you belong to any clubs or organized social groups?: decline to answer Panel score (0-1 are the most socially isolated patients): 1 What type of physical activity do you participate in: walking Duration: 15-30 minutes/day Frequency: daily Kay/Nondenominational: none Special kay needs: No Seatbelt use: never Helmet use: Yes Helmet use: always Drive intox or ride w/intox 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 Exam Narrative Exam Narrative: Const: Morbidly obese male in NAD. HEENT: NC/AT. Normal facial exam. Neck: Supple. Trachea midline. Lungs: Normal respiratory effort. GI: Soft. ND. Rectal performed with nurse present. 2% lidocaine jelly inserted into rectum with improvement of pain. KAYDEN with tenderness right rectal area, no fluctuance, no obvious hemmrhoids. Neuro: A+O x 3. Normal speech, mentation. Cranial nerves II - XII grossly intact. No gross motor or sensory deficit. Ext: No C/C/E. Course Vital Signs Vital signs: Vital Signs Temperature 98.2 F 03/09/23 18:37 Pulse 100 H 03/09/23 18:37 Respiratory Rate 18 03/09/23 18:37 Pulse Oximetry 93 03/09/23 18:37 Temperature 98.2 F 03/09/23 18:37 Temperature Source Oral 03/09/23 18:37 Pulse 100 H 03/09/23 18:37 Respiratory Rate 18 03/09/23 18:37 Respiratory Effort Normal, Non-Labored 03/09/23 18:45 Blood Pressure Position Sitting 03/09/23 18:37 Pulse Oximetry 93 03/09/23 18:37 Oxygen Delivery Method Room Air 03/09/23 18:37 Oxygen Flow Rate 0 03/09/23 18:37 Pain Level 10 03/09/23 18:37
[2023-03-09] MEDS: Lidocaine 2% Jelly 6 ML SYR TP ×2 (19:12→19:36)
== END 2023-03-09 19:39 | disposition home or self-care (01) ==
PROVIDERS: Emergency Provider Emergency Medicine; PCP Nurse Practitioner Family
DX: K60.2 Anal fissure, unspecified (principal); K59.00 Constipation, unspecified; I11.0 Hypertensive heart disease with heart failure; I50.32 Chronic diastolic (congestive) heart failure; F17.290 Nicotine dependence, other tobacco product, uncomplicated; Z79.899 Other long term (current) drug therapy
CPT/HCPCS: 99283; 99282

== ENCOUNTER 2023-03-09 21:18 | Emergency (ER) | payer MEDICAID, SELFPAY ==
[2023-03-09 21:15] VITALS: BP 107/55; PULSE 107; RESP 18; TEMP 36.8; O2SAT 95
--- NOTE | 2023-03-09 21:15 | DI.CT_ITS ---
Exam(s) CT ABDOMEN PELVIS W EXAM: CT ABDOMEN PELVIS W CLINICAL HISTORY: rectal/pelvic pain. TECHNIQUE: Imaging Protocol: Axial computed tomography images with coronal and sagittal reformatted images were created and reviewed CONTRAST MATERIAL: Intravenous: Omnipaque-350 100cc Oral: None COMPARISON: CT CT ABDOMEN PELVIS WO from 02/23/2023 FINDINGS: VISUALIZED LUNG BASES: No nodules nor pleural effusions evident. ABDOMEN: There is no ascites. There is mild symmetrical haziness of the fat within the abdominal and pelvic t hese, not associated with prominent mesenteric adenopathy, free fluid, nor free air. There is no bow el obstruction. LIVER: Liver size is slightly prominent. No discrete focal hepatic lesions evident and no obvious di lated intrahepatic-ducts. GALLBLADDER/BILIARY: No obvious gallbladder pathology. CBD is not dilated. PANCREAS: No evidence of pancreatic mass nor dilatation of the pancreatic duct. SPLEEN: Spleen is not enlarged. No obvious intrasplenic lesions. ADRENALS: There are no significant adrenal masses. KIDNEYS:No cysts evident. No solid renal masses. No calculi nor hydronephrosis.. ABDOMINAL AORTA: Abdominal aorta is not enlarged. LYMPH NODES:There is no retroperitoneal nor paraaortic adenopathy. ABDOMINAL WALL: No evidence of significant anterior abdominal wall nor inguinal hernia. However, the re is streaking in the subcutaneous fat over both sides of the abdomen which is difficult to assess a s this goes beyond the field of view of this study, this related to the patient's size relative to th e gantry. GI: There is no evidence of bowel obstruction, free air, nor abscess. PELVIS: GI: No evidence of appendicitis.No evidence of sigmoid diverticulitis.There is mild circumferential t hickening of the lower rectum. No asymmetric mass. No adjacent streaking nor lymph nodes in the per irectal fat. LYMPH NODES: There is no intrapelvic nor inguinal adenopathy. REPRODUCTIVE: Prostate gland size normal. Seminal vesicles unremarkable. URINARY BLADDER: No calculi nor obvious masses evident OSSEOUS: No fractures and no significant osseous lesions. There is gas within the spinal canal at L4-5 level. Suspect that this is most probably within a disc herniation at this level. This gas bubble measures 1.7 cm cephalocaudal by 8 cm AP by 9 cm wide and is just behind the degenerative disc space at this level.. It does not appear to be a degenerative synovial cyst off the facet joints. The facet joints at this level do not exhibit significant degene rative changes. There is subcutaneous stranding in the fat over the right gluteal region. The subjacent right gluteu s richa muscle appears unremarkable. IMPRESSION: 1. There is mild circumferential thickening of the wall of the rectosigmoid. May indicate element of focal colitis or just related to under distension. 2. There is symmetrical mild increased density throughout the mesenteric fat, not associated with lym phadenopathy nor ascites. There is a possibly that this may be partially related to artifact due to the patient's size. 3. No evidence of appendicitis nor diverticulitis, free air, nor abscess. 4. Subcutaneous soft tissue streaking noted over both sides of the abdomen. This may be cellulitis p attern but please note that the skin and subcutaneous tissue are also partially out of the field of v iew of this study, this related to the patient's size versus is the CT gantry aperture. 5. There is stranding in the subcutaneous fat of the right gluteal region, unchanged from prior CT s can of 02/23/2023 . There is no formed fluid collection at this level. No subcutaneous air at this level. The subjac ent gluteus richa muscle appears unremarkable. RADIATION DOSE DELIVERED: 1,914.37mGy.cm Total DLP DATA REPOSITORY: All CT scans at this facility are submitted to the National Radiology Data Registry (NRDR) Dose Index Registry (DIR) with the [employer] (ACR). RADIATION OPTIMIZATION: All CT scans at this facility use at least one of these dose optimization te chniques: automated exposure control; mA and/or kV adjustment per patient size (includes targeted exa ms where dose is matched to clinical indication); or iterative reconstruction.
--- NOTE | 2023-03-09 21:19 | ED.GENADUL_ITS ---
Discharge Plan Discharge Details Chief Complaint: Abd Prob Primary Care Provider: Sanjeev Brewer ED Provider: Jaydon Garay Doon Meds and New Rx's Prescriptions: No Action escitalopram oxalate 20 mg tablet 20 mg PO DAILY Qty: 90 3RF Rx Instructions: Take 1 tablet daily lisinopril 40 mg tablet 40 mg PO DAILY Qty: 90 4RF Rx Instructions: Take 1 tablet daily sildenafil [Viagra] 50 mg tablet 50 mg PO DAILY PRN (Reason: sexual activity) Qty: 60 4RF Hold Instructions: Resume on 04/06/23. Do not use while on tamsulosin and/or nitroglycerin ointment Rx Instructions: Take 1 tablet 1 hour before sexual activity; may be taken up to 4 hours before sexual activity metolazone 2.5 mg tablet 2.5 mg PO .COMPLEX Rx Instructions: 2.5 mg orally , Saturday; take 30 mins before lasix albuterol sulfate 2.5 mg /3 mL (0.083 %) solution for nebulization 2.5 mg inhalation QID PRN (Reason: shortness of breath or wheezing) Qty: 180 12RF fluticasone propion-salmeterol [Advair HFA] 230-21 mcg/actuation HFA aerosol inhaler 2 puff inhalation BID Qty: 12 12RF (DME) Oxygen Tank See Rx Instructions .Route Qty: 99 0RF Rx Instructions: 1LPM as needed with exertion or rest albuterol sulfate 90 mcg/actuation HFA aerosol inhaler 2 inh inhalation Q4H PRN (Reason: shortness of breath or wheezing) Qty: 18 1RF furosemide 80 mg tablet 80 mg PO BID Qty: 180 3RF mirtazapine 15 mg tablet 15 mg PO DAILY Qty: 30 0RF Rx Instructions: Take 1/2 a tab (7.5mg) for the first week. Increase to 1 tab (15mg). hydroxyzine pamoate [Vistaril] 25 mg Capsule 25 mg PO TID Qty: 90 0RF ibuprofen 800 mg Tablet 800 mg PO TID Qty: 90 0RF pregabalin 75 mg Capsule 75 mg PO HS Qty: 30 0RF tamsulosin 0.4 mg Capsule 0.4 mg PO DAILY Qty: 30 0RF lidocaine HCl 2 % jelly in applicator 1 applic topical BID-QID PRNQty: 500 0RF nitroglycerin 0.4 % (w/w) ointment 1 inch ME BID Qty: 30 0RF Medical Decision Making Patient returns with complaint of increased rectal pain now going into his pelvis. Repeat rectal exam deferred. Abdomen large and obese appears to be nontender. We will establish IV and check basic labs, give fluids, give ketorolac and obtain CT abdomen pelvis to be sure we are not missing abscess. Ketorolac helped minimally. CBC without elevated white count. Creatinine with elevation likely related to all of his diuretic. He has received 1 L of fluid and will receive a second. CT is completed but pending read. Patient still in pain so we will try IV acetaminophen. Narcotics should be avoided as constipation is his biggest problem. Case discussed with Dr. Mcadams who will take over pending CT scan read. Lab Data Lab results reviewed: Yes I reviewed the patient's lab results. HPI General Mode of arrival: EMS . Date/Time Provider Initiated Documentation: 03/09/23 21:31 . Limitations to Documentation: no limitations . Information obtained by: patient . HPI Narrative: Patient returns to ED by ambulance with worsening rectal pain. States that now radiating up into his abdomen. He also reports needing to urinate. Because of the rectal pain he is unable to. He was just seen by me and diagnosed with an anal fissure. Reports that the lidocaine previously given is not helping. Denies any fever or vomiting. Related Data Home Medications Medication Instructions Recorded Confirmed escitalopram oxalate 20 mg tablet 20 mg PO DAILY #90 tabs 09/18/22 03/09/23 lisinopril 40 mg tablet 40 mg PO DAILY #90 tabs 09/18/22 03/09/23 sildenafil 50 mg tablet (Viagra) 50 mg PO DAILY PRN sexual activity 09/18/22 03/09/23 #60 tabs albuterol sulfate 90 mcg/actuation 2 inh inhalation Q4H PRN shortness 11/16/22 03/09/23 aerosol inhaler of breath or wheezing #18 grams Oxygen #99 ea 12/21/22 03/09/23 fluticasone propionate 230 2 puff inhalation BID #12 grams 12/21/22 03/09/23 mcg-salmeterol 21 mcg/actuation HFA inhaler (Advair HFA) furosemide 80 mg tablet 80 mg PO BID #180 tabs 01/01/23 03/09/23 mirtazapine 15 mg tablet 15 mg PO DAILY #30 tabs 02/01/23 03/09/23 albuterol sulfate 2.5 mg/3 mL 2.5 mg (3 mL) inhalation QID PRN 02/19/23 03/09/23 (0.083 %) solution for nebulization shortness of breath or wheezing #180 mL metolazone 2.5 mg tablet 2.5 mg PO .COMPLEX 02/19/23 03/09/23 hydroxyzine pamoate 25 mg capsule 25 mg PO TID #90 caps 02/26/23 03/09/23 (Vistaril) ibuprofen 800 mg tablet 800 mg PO TID #90 tabs 02/26/23 03/09/23 pregabalin 75 mg capsule 75 mg PO HS #30 caps 02/26/23 03/09/23 tamsulosin 0.4 mg capsule 0.4 mg PO DAILY #30 caps 02/26/23 03/09/23 lidocaine HCl 2 % mucosal jelly in 1 applic topical BID-QID PRN #500 03/09/23 applicator mL nitroglycerin 0.4 % (w/w) rectal 1 inch ME BID #30 grams 03/09/23 ointment Previous Rx's Medication Instructions Recorded escitalopram oxalate 20 mg tablet 20 mg PO DAILY #90 tabs 09/18/22 lisinopril 40 mg tablet 40 mg PO DAILY #90 tabs 09/18/22 sildenafil 50 mg tablet (Viagra) 50 mg PO DAILY PRN sexual activity 09/18/22 #60 tabs albuterol sulfate 90 mcg/actuation 2 inh inhalation Q4H PRN shortness 11/16/22 aerosol inhaler of breath or wheezing #18 grams Oxygen #99 ea 12/21/22 fluticasone propionate 230 2 puff inhalation BID #12 grams 12/21/22 mcg-salmeterol 21 mcg/actuation HFA inhaler (Advair HFA) furosemide 80 mg tablet 80 mg PO BID #180 tabs 01/01/23 mirtazapine 15 mg tablet 15 mg PO DAILY #30 tabs 02/01/23 albuterol sulfate 2.5 mg/3 mL 2.5 mg (3 mL) inhalation QID PRN 02/19/23 (0.083 %) solution for nebulization shortness of breath or wheezing #180 mL hydroxyzine pamoate 25 mg capsule 25 mg PO TID #90 caps 02/26/23 (Vistaril) ibuprofen 800 mg tablet 800 mg PO TID #90 tabs 02/26/23 pregabalin 75 mg capsule 75 mg PO HS #30 caps 02/26/23 tamsulosin 0.4 mg capsule 0.4 mg PO DAILY #30 caps 02/26/23 lidocaine HCl 2 % mucosal jelly in 1 applic topical BID-QID PRN #500 03/09/23 applicator mL nitroglycerin 0.4 % (w/w) rectal 1 inch ME BID #30 grams 03/09/23 ointment Allergies Allergy/AdvReac Type Severity Reaction Status Date / Time plums AdvReac Unknown Uncoded 03/01/23 08:14 General MONTRELL: 3 Review of Systems Narrative: Per HPI PFSH All Active Problems Constipation (Acute) Acute anal fissure (Acute) Cellulitis of right lower extremity (Acute) Anal or rectal pain (Acute) Right heart failure (Acute) Chewing tobacco use (Chronic) Severe obstructive sleep apnea (Chronic) Original PSG 12/02/16; BIPAP Prediabetes (Chronic) Depressive disorder (Chronic) Insomnia (Chronic) Morbid obesity with BMI of 60.0-69.9, adult (Chronic) Lower extremity ulceration (Acute) Acute on chronic respiratory failure with hypoxia and hypercapnia (Acute) Venous stasis dermatitis (Acute) Dyspnea (Acute) Weight gain with edema (Acute) Medical History Asthma Diastolic CHF Essential hypertension Hyperlipidemia Obesity hypoventilation syndrome Surgical History H/O umbilical hernia repair (05/26/14) S/P appendectomy S/P colonoscopy (12/14/16) Family History Mother , at 70 from metastatic breast cancer Essential hypertension Metastatic breast cancer Type 2 diabetes mellitus Lung disease Cancer Father No problems noted. Sister Depression Maternal Grandfather Heart disease Lung cancer Maternal Grandmother COPD with emphysema Paternal Grandfather No problems noted. Paternal Grandmother No problems noted. 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 Pets and animals: No Sexually active: Yes Do you think of yourself as: straight/heterosexual Current gender identity: male What is your relationship status?: How often do you talk on the phone with friends or family?: three or more times per week How often do you get together with friends or relatives?: three or more times per week How often do you attend anglican or pentecostalism services?: decline to answer Do you belong to any clubs or organized social groups?: decline to answer Panel score (0-1 are the most socially isolated patients): 1 What type of physical activity do you participate in: walking Duration: 15-30 minutes/day Frequency: daily Kay/Worship: none Special kay needs: No Seatbelt use: never Helmet use: Yes Helmet use: always Drive intox or ride w/intox cdl bulk driver: No Do you feel safe at home: Yes Do you feel safe in your relationship?: Yes Exam Narrative Exam Narrative: Const: Morbidly obese male in NAD. HEENT: NC/AT. Normal facial exam. Eyes: Normal conjunctiva and sclera. Neck: Supple. Trachea midline. Lungs: Normal respiratory effort. Lungs are clear. Cor: RRR without murmur/gallop. Good radial pulses. GI: Soft. NT/ND. No guarding or rebound. Back: No CVAT Neuro: A+O x 3. Normal speech, mentation, gait. Cranial nerves II - XII grossly intact. No gross motor or sensory deficit. Ext: No C/C/E. Skin: Warm and dry without rash.
[2023-03-09] MEDS: Ketorolac 30 MG/ML VIAL (21:30)
[2023-03-09] MEDS: Normal Saline 1,000 ML 1000 ML IV ×2 (21:44→23:23)
[2023-03-09 21:46] LABS: Absolute Monocyte Count 1.13 10^3/uL (0.1-0.8); Basophils % 0.7; Eosinophils % 2.7; HCT 41.8 % (40.0-50.0); HGB 13.7 g/dL (13.5-17.5); Immature Grans % 0.7; Lymphocytes % 10.5; MCH 28.4 pg (27.0-33.0); MCHC 32.8 % (32.0-36.0); MCV 87 fL (80-95); MPV 11.3 fL (8.0-11.0); Monocytes % 7.6; Neutrophils % 77.8; Platelet Count 307 10^3/uL (130-400); RBC 4.82 10^6/uL (4.36-5.78); RDW 14.1 % (11.8-14.1); WBC 14.89 10^3/uL (4.4-10.8)
[2023-03-09 21:47] LABS: Absolute Lymphocyte Count 1.56 10^3/uL (1.2-3.4); Absolute Neutrophil Count 11.58 10^3/uL (1.2-6.7)
[2023-03-09 21:55] LABS: BUN 45 mg/dL (7-18); CREATININE 2.1 mg/dL (0.70-1.30); Calcium 8.9 mg/dL (8.5-10.1); Chloride 97 mmol/L (98-107); Estimated GFR 36.49 (mL/min/1.73m2); Glucose 121 mg/dL (74-106); Potassium 3.5 mmol/L (3.5-5.1); Sodium 141 mmol/L (136-145)
[2023-03-09] MEDS: Normal Saline - Diluent 50 ML VIAL IJ (22:29)
[2023-03-09] MEDS: Omnipaque 350 MG/ML 100 ML BTL IJ (22:29)
--- NOTE | 2023-03-09 23:21 | DI.VRAD_ITS ---
PROCEDURE INFORMATION: Exam: CT Abdomen And Pelvis With Contrast Exam date and time: 03/09/2023 10:21 PM Age: 57 years old Clinical indication: Pain; Other: Rectal TECHNIQUE: Imaging protocol: Computed tomography of the abdomen and pelvis with contrast. COMPARISON: CT ABDOMEN PELVIS WO 02/23/2023 7:20 AM FINDINGS: Lungs: The visualized lung christensen show mild bibasilar atelectasis. Liver: The liver is top-normal in size. There is mild hepatic steatosis. Gallbladder and bile ducts: No calcified gallstones are identified. There is no pericholecystic fluid. Pancreas: The pancreas is normal. Spleen: The spleen is normal in size and density. Adrenal glands: The adrenal glands are normal. Kidneys and ureters: There is no hydronephrosis. No renal or obstructive ureteral calculi are identified. Stomach and bowel: There is no evidence of small bowel or colonic obstruction. Mild thickening of the wall rectosigmoid, that may represent proctocolitis or underdistension. Appendix: No evidence of appendicitis. Intraperitoneal space: No free air. No significant fluid collection. Vasculature: There is no abdominal aortic aneurysm. Lymph nodes: No enlarged retroperitoneal or mesenteric lymph nodes. Urinary bladder: The bladder shows a normal contour and is free of calcific opacities. Reproductive: Unremarkable as visualized. Bones/joints: In the subcutaneous adipose tissue of the left lateral abdominopelvic wall, level of the iliac crest, there is severe stranding and inflammatory change. This appears more prominent than on the comparison study. No acute fracture.Multilevel degenerative disc disease and vacuum discs without significant spinal canal stenosis. At L4-L5, there is gas in the epidural space. Soft tissues: There is a small nonobstructing right inguinal hernia containing adipose tissue. In the subcutaneous adipose tissue of the right gluteal region, there is stranding and inflammatory change not significantly changed from the comparison study. IMPRESSION: 1. Mild thickening of the wall rectosigmoid, that may represent proctocolitis or underdistension. 2. Severe stranding and inflammatory change in the subcutaneous adipose tissue of the left lateral abdominopelvic wall. This may reflect infiltrating hematoma or infection/cellulitis. It is partially outside the field of view. 3. Stranding in the subcutaneous adipose tissues of the right gluteal region, stable from the comparison study. This may represent hematoma or infection/cellulitis. 4. The liver is top-normal in size. There is mild hepatic steatosis. No evidence of thoracic or abdominal aortic aneurysm or dissection. Dictated and Authenticated by: Luis Alberto Lizama MD. Ordering:SULEIMAN Interiano MD
[2023-03-09] MEDS: ACETAMINOPHEN 1,000 MG/100 ML BTL 400 MG IVPB (23:23)
--- NOTE | 2023-03-09 23:41 | W.EDPROG ---
Date of service: 03/09/23 Time of Service: 23:42 Medical Decision Making Pt's CT returned showing findings copied below. He denies any anal intercourse so doubt std. HE has no pain or evidence of cellulitis in the left lateral abdominopelvic wall so doubt cellulitis/infection. No evidence of of cellulitis in right gluteal region as well. He is stable and pain has improved. AFter review of his chart he has not had prostatis rule out and on CT it is showing possible proctocolitis. I discussed treatment for prostatis is normally 28 days of antibiotics and discussed risks of cipro with him, he has decision making capacity and would like to start cipro. He is stable for d/c, advised to f/u with pcp and discuss being referred to [facility] for colonoscopy. Return precautions given 1. Mild thickening of the wall rectosigmoid, that may represent proctocolitis or underdistension. 2. Severe stranding and inflammatory change in the subcutaneous adipose tissue of the left lateral abdominopelvic wall. This may reflect infiltrating hematoma or infection/cellulitis. It is partially outside the field of view. 3. Stranding in the subcutaneous adipose tissues of the right gluteal region, stable from the comparison study. This may represent hematoma or infection/cellulitis. 4. The liver is top-normal in size. There is mild hepatic steatosis. No evidence of thoracic or abdominal aortic aneurysm or dissection. Sign Out Sign Out Data: Sign Out Comment: pending CT read, fluids/acetaminophen Last updated by Jaydon Garay MD at 03/09/23 23:17 Discharge Plan Disposition Patient Disposition: Home Condition: Stable Discharge Details Clinical Impression: Pain, rectal Primary Care Provider: Sanjeev Brewer ED Provider: Vinod Mcadams Home Meds and New Rx's Prescriptions: New ciprofloxacin HCl 500 mg tablet 500 mg PO BID Qty: 14 0RF Continued escitalopram oxalate 20 mg tablet 20 mg PO DAILY Qty: 90 3RF Rx Instructions: Take 1 tablet daily lisinopril 40 mg tablet 40 mg PO DAILY Qty: 90 4RF Rx Instructions: Take 1 tablet daily metolazone 2.5 mg tablet 2.5 mg PO .COMPLEX Rx Instructions: 2.5 mg orally , Saturday; take 30 mins before lasix albuterol sulfate 2.5 mg /3 mL (0.083 %) solution for nebulization 2.5 mg inhalation QID PRN (Reason: shortness of breath or wheezing) Qty: 180 12RF fluticasone propion-salmeterol [Advair HFA] 230-21 mcg/actuation HFA aerosol inhaler 2 puff inhalation BID Qty: 12 12RF (DME) Oxygen Tank See Rx Instructions .Route Qty: 99 0RF Rx Instructions: 1LPM as needed with exertion or rest albuterol sulfate 90 mcg/actuation HFA aerosol inhaler 2 inh inhalation Q4H PRN (Reason: shortness of breath or wheezing) Qty: 18 1RF furosemide 80 mg tablet 80 mg PO BID Qty: 180 3RF mirtazapine 15 mg tablet 15 mg PO DAILY Qty: 30 0RF Rx Instructions: Take 1/2 a tab (7.5mg) for the first week. Increase to 1 tab (15mg). hydroxyzine pamoate [Vistaril] 25 mg Capsule 25 mg PO TID Qty: 90 0RF ibuprofen 800 mg Tablet 800 mg PO TID Qty: 90 0RF pregabalin 75 mg Capsule 75 mg PO HS Qty: 30 0RF tamsulosin 0.4 mg Capsule 0.4 mg PO DAILY Qty: 30 0RF lidocaine HCl 2 % jelly in applicator 1 applic topical BID-QID PRNQty: 500 0RF nitroglycerin 0.4 % (w/w) ointment 1 inch [place] BID Qty: 30 0RF No Action sildenafil [Viagra] 50 mg tablet 50 mg PO DAILY PRN (Reason: sexual activity) Qty: 60 4RF Hold Instructions: Resume on 04/06/23. Do not use while on tamsulosin and/or nitroglycerin ointment Rx Instructions: Take 1 tablet 1 hour before sexual activity; may be taken up to 4 hours before sexual activity Discharge Instructions Instructions: Anal Fissure (ED) Additional Instructions: Follow up with your primary care provider within 1-2 weeks and discuss being referred to [facility] for a colonscopy IF you feel more ill, have fevers or persistent vomiting return to the emergency department
[2023-03-09] MEDS: Ciprofloxacin 500 MG TAB PO (23:57)
[2023-03-10 00:25] VITALS: BP 109/64; PULSE 98; RESP 20; O2SAT 94
== END 2023-03-10 00:19 | disposition home or self-care (01) ==
PROVIDERS: Emergency Medicine; Emergency Provider Emergency Medicine; PCP Nurse Practitioner Family
DX: K60.2 Anal fissure, unspecified (principal); K59.00 Constipation, unspecified; F17.290 Nicotine dependence, other tobacco product, uncomplicated; I11.0 Hypertensive heart disease with heart failure; I50.32 Chronic diastolic (congestive) heart failure; Z79.899 Other long term (current) drug therapy
CPT/HCPCS: 36415; 80048; 96361; 96374; 99285; 74177; 85025; 99283; J0131; J1885; J3490

== ENCOUNTER 2023-03-26 10:07 | Emergency (ER) | payer MEDICAID, SELFPAY ==
[2023-03-26 10:07] VITALS: PULSE 81; RESP 20; TEMP 36.8; O2SAT 97
[2023-03-26] MEDS: HYDROmorphone 2 MG/ML SYR 1 MG IVP ×2 (10:39→14:19)
[2023-03-26 10:45] VITALS: RESP 20
[2023-03-26 11:29] LABS: Abs Immature Grans 0.05 10^3/uL (0.0-0.06); Absolute Basophil Count 0.06 10^3/uL (0.0-0.2); Absolute Lymphocyte Count 1.73 10^3/uL (1.2-3.4); Basophils % 0.5; Eosinophils % 1.6; HCT 39.6 % (40.0-50.0); HGB 13.1 g/dL (13.5-17.5); Immature Grans % 0.4; Lymphocytes % 13.6; MCH 28.5 pg (27.0-33.0); MCHC 33.1 % (32.0-36.0); MCV 86 fL (80-95); MPV 10.8 fL (8.0-11.0); Monocytes % 7.8; Neutrophils % 76.1; Platelet Count 285 10^3/uL (130-400); RBC 4.59 10^6/uL (4.36-5.78); RDW 14.7 % (11.8-14.1); RDW-SD 46.3 fL; WBC 12.75 10^3/uL (4.4-10.8)
[2023-03-26 11:30] LABS: Absolute Monocyte Count 0.99 10^3/uL (0.1-0.8)
[2023-03-26 11:31] LABS: Bilirubin Negative (Negative); Blood Negative (Negative); Clarity Clear (Clear); Glucose Negative (Negative); Ketones Negative (Negative); Leukocyte Esterase Small (Negative); Nitrite Negative (Negative); Specific Gravity 1.015 (1.005-1.025); Urobilinogen 0.2 mg/dL (Up to 0.2); pH 7.5 (5-8)
[2023-03-26 11:38] LABS: Bacteria Rare HPF (Negative); C & S Indicated? Yes; Casts Negative LPF (Negative); Crystals Negative HPF (Negative); Epithelial Cells Few HPF (Negative); Mucus Trace (Negative); RBC Negative HPF (0-2)
--- NOTE | 2023-03-26 12:00 | DI.CT_ITS ---
Exam(s) CT ABDOMEN PELVIS W EXAM: CT ABDOMEN PELVIS W CLINICAL HISTORY: rectal pain, worsening hx of anal fissure TECHNIQUE: Imaging Protocol: Axial computed tomography images with coronal and sagittal reformatted images were created and reviewed CONTRAST MATERIAL: Intravenous: Omnipaque 350 Contrast volume:100 mL Oral: Yes COMPARISON: CT CT ABDOMEN PELVIS W from 03/09/2023 FINDINGS: ABDOMEN: Lung Bases: Normal where visualized. Liver: Normal density. No measurable mass. Portal, Superior Mesenteric, and Splenic Veins: Unremarkable. Gallbladder and Biliary Tract: No radiodense calculus or dilation. Pancreas: Normal density, no abnormal calcifications or inflammatory process. Spleen: Normal. Adrenals: No masses seen. Kidneys: Normal size, contour and axis. No radiodense stones or obstructive uropathy. No masses seen. Abdominal Aorta: Abdominal portion non-dilated. Bowel: No obstruction or bowel wall thickening. No evidence of appendicitis. There is diverticulosis but no evidence of acute diverticulitis. The wall of the rectum appears mildly thickened but this m ay be due to underdistention. No inflammatory stranding is seen around the rectum. Peritoneal Cavity: No ascites, collection or mesenteric inflammatory response. No free air. Lymph Nodes: Within normal limits. Bones: Within normal limits for the patient's age. Soft Tissues: Small bilateral fat containing inguinal hernias are present. There is persistent stran ding seen in the right gluteal subcutaneous tissues. No focal fluid collection or soft tissue gas is seen. The underlying musculature is unremarkable. There is no evidence of a perirectal abscess. T here is mild nonspecific stranding in the subcutaneous fat along both the right and left abdominal wa ll. Due to the size of the patient this area is not wholly included on this examination. No focal f luid collection is seen. PELVIS: Bladder: Symmetric distention, no gross wall thickening. Reproductive Organs: Unremarkable as visualized. Lymph Nodes: Within normal limits. Bones: Within normal limits for the patient's age. IMPRESSION: 1. Persistent soft tissue stranding in the right gluteal subcutaneous tissues. No focal fluid collec tion or subcutaneous gas is seen. No evidence of a perirectal abscess. 2. Persistent mild stranding in the subcutaneous fat along both the right left abdominal wall. This is nonspecific. No focal fluid collection is seen. 3. Stable mild thickening of the wall of the rectum. This may be due to underdistention. No perirec chip inflammation is seen. Proctitis cannot be entirely excluded. RADIATION DOSE DELIVERED: 2,098.17mGy.cm Total DLP DATA REPOSITORY: All CT scans at this facility are submitted to the National Radiology Data Registry (NRDR) Dose Index Registry (DIR) with the [employer] ([employer]). RADIATION OPTIMIZATION: All CT scans at this facility use at least one of these dose optimization te chniques: automated exposure control; mA and/or kV adjustment per patient size (includes targeted exa ms where dose is matched to clinical indication); or iterative reconstruction.
[2023-03-26 12:08] LABS: ALT 23 U/L (16-63); AST 18 U/L (15-37); Albumin 3.5 g/dL (3.4-5.0); Alkaline Phosphatase 76 U/L (46-116); BUN 10 mg/dL (7-18); Bilirubin, Total 0.6 mg/dL (0.2-1.0); CREATININE 0.9 mg/dL (0.70-1.30); Calcium 8.9 mg/dL (8.5-10.1); Chloride 100 mmol/L (98-107); Estimated GFR 100.24 (mL/min/1.73m2); Glucose 104 mg/dL (74-106); Potassium 3.6 mmol/L (3.5-5.1); Sodium 139 mmol/L (136-145); Total Protein 7.9 g/dL (6.4-8.2)
[2023-03-26] MEDS: Omnipaque 350 MG/ML 50 ML BTL IJ (13:06)
[2023-03-26] MEDS: Breeza Beverage 473 ML BTL PO (13:08)
--- NOTE | 2023-03-26 15:25 | W.ED.GENAD ---
Discharge Plan Disposition Patient Disposition: Home Condition: Stable Discharge Details Clinical Impression: Acute UTI, Anal or rectal pain, Chronic anal fissure Primary Care Provider: Sanjeev Brewer ED Provider: Dipti Jenkins Home Meds and New Rx's Prescriptions: New cephalexin 500 mg tablet 500 mg PO BID 10 Days Qty: 20 0RF Rx Instructions: Take 1 tablet by mouth twice daily for the next 10 days. Continued escitalopram oxalate 20 mg tablet 20 mg PO DAILY Qty: 90 3RF Rx Instructions: Take 1 tablet daily metolazone 2.5 mg tablet 2.5 mg PO .COMPLEX Rx Instructions: 2.5 mg orally MWF, Saturday; take 30 mins before lasix albuterol sulfate 2.5 mg /3 mL (0.083 %) solution for nebulization 2.5 mg inhalation QID PRN (Reason: shortness of breath or wheezing) Qty: 180 12RF fluticasone propion-salmeterol [Advair HFA] 230-21 mcg/actuation HFA aerosol inhaler 2 puff inhalation BID Qty: 12 12RF (DME) Oxygen Tank See Rx Instructions .Route Qty: 99 0RF Rx Instructions: 1LPM as needed with exertion or rest albuterol sulfate 90 mcg/actuation HFA aerosol inhaler 2 inh inhalation Q4H PRN (Reason: shortness of breath or wheezing) Qty: 18 1RF mirtazapine 15 mg tablet 15 mg PO DAILY Qty: 30 0RF Rx Instructions: Take 1/2 a tab (7.5mg) for the first week. Increase to 1 tab (15mg). lisinopril 40 mg tablet 40 mg PO DAILY Qty: 90 4RF Rx Instructions: Take 1 tablet daily furosemide 80 mg tablet 80 mg PO BID Qty: 180 3RF hydroxyzine pamoate [Vistaril] 25 mg Capsule 25 mg PO TID Qty: 90 0RF ibuprofen 800 mg Tablet 800 mg PO TID Qty: 90 0RF pregabalin 75 mg Capsule 75 mg PO HS Qty: 30 0RF tamsulosin 0.4 mg Capsule 0.4 mg PO DAILY Qty: 30 0RF lidocaine HCl 2 % jelly in applicator 1 applic topical BID-QID PRNQty: 500 0RF No Action sildenafil [Viagra] 50 mg tablet 50 mg PO DAILY PRN (Reason: sexual activity) Qty: 60 4RF Hold Instructions: Resume on 04/06/23. Do not use while on tamsulosin and/or nitroglycerin ointment Rx Instructions: Take 1 tablet 1 hour before sexual activity; may be taken up to 4 hours before sexual activity nitroglycerin 0.4 % (w/w) ointment 1 inch OK BID Qty: 30 0RF hydromorphone [Dilaudid] 2 mg tablet 2 mg PO Q6H PRNQty: 20 0RF Proctofoam HC 1-1 % foam 1 applic OK BID 14 Days Qty: 10 0RF Discharge Instructions Instructions: Urinary Tract Infection in Men (ED), Urinary Tract Infection in Men (DC), Sitz Bath (DC) Additional Instructions: At this time it appears you may have a urinary tract infection. We will place you on antibiotics cephalexin twice daily for the next 10 days. Please use the sitz bath and warm clean water and sit in the sitz bath at least once a day if not more up to 3 times daily as needed for pain. Please seriously consider losing weight. This will assist in your pain and your symptoms. Please follow-up with colorectal surgery at [facility]. I did speak with our surgeon here at this facility and they believe you would be better served at [facility]. Continue with your previously prescribed medications for the anal fissure. I am giving you oxycodone for moderate to severe breakthrough pain. Please take this with food no driving also be careful with this as it may cause constipation which will also worsen your condition. Referrals: [facility] [Outside] - 1 week (Needs Colorectal surgery referral please) Sanjeev Brewer, DAYO [Primary Care Provider] - 5 days Discharge Data Discharge Date/Time-TO BE ENTERED AT DEPARTURE: 03/26/23 19:33 Medical Decision Making <AUGUST Rodrigues - Last Filed: 03/27/23 20:41> 58-year-old gentleman presenting with recurrent anal pain after Botox injection into the rectal region Labs do not show evidence of significant acute abnormality, 10-20 white blood cells in urinalysis, negative for nitrates, unlikely urinary tract infection Anal fissure noted at the 6 o'clock position, case discussed with Dr. Osorio, content assistant at [facility], recommendation for repeat CT imaging and possible surgical consultation, no additional intervention is necessary by GI at this time I did review all patient's records, diagnostic labs and he will likely need surgical consultation, he may benefit from having some pain medication at home care will be transitioned to pending ct and disposition <Dipti BarlowDAYO kaufman - Last Filed: 03/26/23 22:29> Medical Records Medical records reviewed: Yes I reviewed the patient's medical records. Medical records narrative: 1600: Care assumed from provider (AUGUST Rodrigues) Please see their initial HPI, PE, and documentation. Discussed patient details and case and pending workup and disposition. Patient is hemodynamically stable, and alert and oriented. At the time of signout patient is in diagnostic imaging pending CT results. Patient is here with pain relieved with Dilaudid. CT results showed bilateral inguinal hernias with some fat stranding, no evidence of perirectal abscess. On patient re-evaluation , I did discuss CT results with him, images pushed to [facility], CT shows stranding and bilateral inguinal hernias, Dr. Osorio has left at this time, will page fellow. 174: Spoke with transfer center, call got disconnected, will call back. Dr. Sanon GI fellow, she recommends surgical consult. Will page surgery here. 180: Dr. Berny hendrickson.Spoke with her, she will review chart and call me back. 183: Spoke again with Dr. Arrieta general surgeon here at this hospital who was able to review his chart and images she recommends surgical referral either through the PCP or here for colorectal surgery she also recommends sitz bath which can be placed on the toilet and sitz bath's daily or frequently during the day. To continue with the stool softeners. She attributes the pain to the anal spasms. She reports she does not recommend long-term narcotic use due to this will cause constipation make it worse. I will discuss weight loss with patient and the sitz bath patient was given a gram of Rocephin here IV in the ER. I will place him on cephalexin for UTI and high white count. Sitz bath received from laborer beam house from L&D floor by air liaison and special staff. Discussed home care and recommendations with patient, he verbalized understanding and is in agreement with plan of care. Patient placed on care management list for assistance with colorectal surgery referral. Patient given oxycodone 4 tablets and a prescription for 7 tablets as needed for moderate to severe breakthrough pain I did discuss the risk versus benefits with him regarding the constipation. I did encourage him to continue taking the previously prescribed medications. Patient was given cephalexin prescription for UTI. patient was ambulatory upon discharge remained hemodynamically stable throughout the remainder of his stay. This text was generated using [employer] dictation system, please disregard any oddities of phrase or misspellings. Imaging Data Radiologic Study: Imaging: CT Scan Radiologist's impression: FINDINGS: ABDOMEN: Lung Bases: Normal where visualized. Liver: Normal density. No measurable mass. Portal, Superior Mesenteric, and Splenic Veins: Unremarkable.? Gallbladder and Biliary Tract: No radiodense calculus or dilation. Pancreas: Normal density, no abnormal calcifications or inflammatory process. Spleen: Normal. Adrenals: No masses seen. Kidneys: Normal size, contour and axis. No radiodense stones or obstructive uropathy. No masses seen. Abdominal Aorta: Abdominal portion non-dilated. Bowel: No obstruction or bowel wall thickening. No evidence of appendicitis.? There is diverticulosis but no evidence of acute diverticulitis.? The wall of the rectum appears mildly thickened but this may be due to underdistention.? No inflammatory stranding is seen around the rectum. Peritoneal Cavity: No ascites, collection or mesenteric inflammatory response.? No free air. Lymph Nodes: Within normal limits. Bones: Within normal limits for the patient's age.? Soft Tissues: Small bilateral fat containing inguinal hernias are present.? There is persistent stranding seen in the right gluteal subcutaneous tissues.? No focal fluid collection or soft tissue gas is seen.? The underlying musculature is unremarkable.? There is no evidence of a perirectal abscess.? There is mild nonspecific stranding in the subcutaneous fat along both the right and left abdominal wall.? Due to the size of the patient this area is not wholly included on this examination.? No focal fluid collection is seen. PELVIS: Bladder: Symmetric distention, no gross wall thickening. Reproductive Organs: Unremarkable as visualized. Lymph Nodes: Within normal limits. Bones: Within normal limits for the patient's age.? IMPRESSION: 1. Persistent soft tissue stranding in the right gluteal subcutaneous tissues.? No focal fluid collection or subcutaneous gas is seen.? No evidence of a perirectal abscess. 2. Persistent mild stranding in the subcutaneous fat along both the right left abdominal wall.? This is nonspecific.? No focal fluid collection is seen. 3. Stable mild thickening of the wall of the rectum.? This may be due to underdistention.? No perirectal inflammation is seen.? Proctitis cannot be entirely excluded.? Lab Data Lab results reviewed: Yes I reviewed the patient's lab results. Labs: 03/26/23 11:15 Urine - Reflex from Ua Urine Culture - Pending Laboratory Tests Range/Units 03/26/23 03/26/23 03/26/23 11:15 11:15 11:15 WBC (4.4-10.8) 10^3/uL 12.75 H RBC (4.36-5.78) 10^6/uL 4.59 Hgb (13.5-17.5) g/dL 13.1 L Hct (40.0-50.0) % 39.6 L MCV (80-95) fL 86 MCH (27.0-33.0) pg 28.5 MCHC (32.0-36.0) % 33.1 RDW (11.8-14.1) % 14.7 H Plt Count (130-400) 10^3/uL 285 MPV (8.0-11.0) fL 10.8 Immature Gran % 0.4 Neutrophils % 76.1 Lymphocytes % 13.6 Monocytes % 7.8 Eosinophils % 1.6 Basophils % 0.5 Nucleated RBC % (0.0-0.3) % 0.0 Absolute Neutrophils (1.2-6.7) 10^3/uL 9.70 H Absolute Lymphocytes (1.2-3.4) 10^3/uL 1.73 Absolute Monocytes (0.1-0.8) 10^3/uL 0.99 H Absolute Eosinophils (0.0-0.7) 10^3/uL 0.20 Absolute Basophils (0.0-0.2) 10^3/uL 0.06 Sodium (136-145) mmol/L 139 Potassium (3.5-5.1) mmol/L 3.6 Chloride (98-107) mmol/L 100 Carbon Dioxide (21.0-32.0) mmol/L 32.0 Anion Gap (3-11) mmol/L 7.0 BUN (7-18) mg/dL 10 Creatinine (0.70-1.30) mg/dL 0.9 Est GFR (CKD-EPI 2020) (mL/min/1.73m2) 100.24 Glucose (74-106) mg/dL 104 Calcium (8.5-10.1) mg/dL 8.9 Total Bilirubin (0.2-1.0) mg/dL 0.6 AST (15-37) U/L 18 ALT (16-63) U/L 23 Alkaline Phosphatase (46-116) U/L 76 Total Protein (6.4-8.2) g/dL 7.9 Albumin (3.4-5.0) g/dL 3.5 Urine Color (Yellow) Yellow Urine Clarity (Clear) Clear Urine pH (5-8) 7.5 Ur Specific [place] (1.005-1.025) 1.015 Urine Protein (Negative) mg/dL Negative Urine Ketones (Negative) mg/dL Negative Urine Blood (Negative) Negative Urine Nitrite (Negative) Negative Urine Bilirubin (Negative) Negative Urine Urobilinogen (Up to 0.2) mg/dL 0.2 Ur Leukocyte Esterase (Negative) Small H Urine RBC (0-2) HPF Negative Urine WBC (0-5) HPF 10-20 H Ur Epithelial Cells (Negative) HPF Few Urine Crystals (Negative) HPF Negative Urine Bacteria (Negative) HPF Rare Urine Casts (Negative) LPF Negative Urine Mucus (Negative) Trace Ur Culture Indicated? Yes Urine Glucose (Negative) mg/dL Negative HPI <AUGUST Rodrigues - Last Filed: 03/27/23 20:41> General Date/Time Provider Initiated Documentation: 03/26/23 10:18. HPI Narrative: This 58-year-old gentleman with history of anal fissure receiving Botox on 15 March secondary to persistent pain, also with admission for renal insufficiency and CHF presents with report of recurrent pain. He states that he had 1 day of improved pain and has been using suppositories which have been helping and including an ointment which contains nitroglycerin. He presents today secondary to persistent pain, he denies any change in pain or abdominal discomfort. Denies any urinary complaints. He denies any fever or chills. He states that all the symptoms began approximately a month ago after constipation and a large bowel movement per patient. Related Data Home Medications Medication Instructions Recorded Confirmed escitalopram oxalate 20 mg tablet 20 mg PO DAILY #90 tabs 09/18/22 03/27/23 sildenafil 50 mg tablet (Viagra) 50 mg PO DAILY PRN sexual activity 09/18/22 03/27/23 #60 tabs albuterol sulfate 90 mcg/actuation 2 inh inhalation Q4H PRN shortness 11/16/22 03/27/23 aerosol inhaler of breath or wheezing #18 grams Oxygen #99 ea 12/21/22 03/27/23 fluticasone propionate 230 2 puff inhalation BID #12 grams 12/21/22 03/27/23 mcg-salmeterol 21 mcg/actuation HFA inhaler (Advair HFA) mirtazapine 15 mg tablet 15 mg PO DAILY #30 tabs 02/01/23 03/27/23 albuterol sulfate 2.5 mg/3 mL 2.5 mg (3 mL) inhalation QID PRN 02/19/23 03/27/23 (0.083 %) solution for nebulization shortness of breath or wheezing #180 mL metolazone 2.5 mg tablet 2.5 mg PO .COMPLEX 02/19/23 03/27/23 hydroxyzine pamoate 25 mg capsule 25 mg PO TID #90 caps 02/26/23 03/27/23 (Vistaril) ibuprofen 800 mg tablet 800 mg PO TID #90 tabs 02/26/23 03/27/23 pregabalin 75 mg capsule 75 mg PO HS #30 caps 02/26/23 03/27/23 tamsulosin 0.4 mg capsule 0.4 mg PO DAILY #30 caps 02/26/23 03/27/23 lidocaine HCl 2 % mucosal jelly in 1 applic topical BID-QID PRN #500 03/09/23 03/27/23 applicator mL furosemide 80 mg tablet 80 mg PO BID #180 tabs 03/13/23 03/27/23 lisinopril 40 mg tablet 40 mg PO DAILY #90 tabs 03/13/23 03/27/23 cephalexin 500 mg tablet 500 mg PO BID UTI 10 days #20 tabs 03/26/23 03/27/23 hydrocortisone 1 %-pramoxine 1 % 1 applic OK BID 2 weeks #10 grams 03/27/23 rectal foam (Proctofoam HC) hydromorphone 2 mg tablet 2 mg PO Q6H PRN #20 tabs 03/27/23 (Dilaudid) nitroglycerin 0.4 % (w/w) rectal 1 inch OK BID #30 grams 03/27/23 03/27/23 ointment Previous Rx's Medication Instructions Recorded escitalopram oxalate 20 mg tablet 20 mg PO DAILY #90 tabs 09/18/22 sildenafil 50 mg tablet (Viagra) 50 mg PO DAILY PRN sexual activity 09/18/22 #60 tabs albuterol sulfate 90 mcg/actuation 2 inh inhalation Q4H PRN shortness 11/16/22 aerosol inhaler of breath or wheezing #18 grams Oxygen #99 ea 12/21/22 fluticasone propionate 230 2 puff inhalation BID #12 grams 12/21/22 mcg-salmeterol 21 mcg/actuation HFA inhaler (Advair HFA) mirtazapine 15 mg tablet 15 mg PO DAILY #30 tabs 02/01/23 albuterol sulfate 2.5 mg/3 mL 2.5 mg (3 mL) inhalation QID PRN 02/19/23 (0.083 %) solution for nebulization shortness of breath or wheezing #180 mL hydroxyzine pamoate 25 mg capsule 25 mg PO TID #90 caps 02/26/23 (Vistaril) ibuprofen 800 mg tablet 800 mg PO TID #90 tabs 02/26/23 pregabalin 75 mg capsule 75 mg PO HS #30 caps 02/26/23 tamsulosin 0.4 mg capsule 0.4 mg PO DAILY #30 caps 02/26/23 lidocaine HCl 2 % mucosal jelly in 1 applic topical BID-QID PRN #500 03/09/23 applicator mL furosemide 80 mg tablet 80 mg PO BID #180 tabs 03/13/23 lisinopril 40 mg tablet 40 mg PO DAILY #90 tabs 03/13/23 cephalexin 500 mg tablet 500 mg PO BID UTI 10 days #20 tabs 03/26/23 hydrocortisone 1 %-pramoxine 1 % 1 applic OK BID 2 weeks #10 grams 03/27/23 rectal foam (Proctofoam HC) hydromorphone 2 mg tablet 2 mg PO Q6H PRN #20 tabs 03/27/23 (Dilaudid) nitroglycerin 0.4 % (w/w) rectal 1 inch OK BID #30 grams 03/27/23 ointment Allergies Allergy/AdvReac Type Severity Reaction Status Date / Time plums AdvReac Unknown Uncoded 03/27/23 10:58 General Stated Complaint: GenMedical MONTRELL: 3 PFSH <AUGUST Rodrigues - Last Filed: 03/27/23 20:41> All Active Problems (Updated 03/27/23 @ 15:23 by Baljinder Ambrosio MD) Rectal pain (Acute) Chewing tobacco use (Chronic) Severe obstructive sleep apnea (Chronic) Original PSG 12/02/16; BIPAP Prediabetes (Chronic) Depressive disorder (Chronic) Insomnia (Chronic) Morbid obesity with BMI of 60.0-69.9, adult (Chronic) Lower extremity ulceration (Acute) Acute on chronic respiratory failure with hypoxia and hypercapnia (Acute) Venous stasis dermatitis (Acute) Dyspnea (Acute) Right heart failure (Acute) Constipation (Acute) Acute anal fissure (Acute) Acute UTI (Acute) Anal or rectal pain (Acute) Chronic anal fissure (Acute) Medical History Anal or rectal pain Asthma Cellulitis of right lower extremity Diastolic CHF Essential hypertension Hyperlipidemia Obesity hypoventilation syndrome Pain, rectal Weight gain with edema Surgical History H/O umbilical hernia repair (05/26/14) S/P appendectomy S/P colonoscopy (12/14/16) Family History Mother , at 70 from metastatic breast cancer Essential hypertension Metastatic breast cancer Type 2 diabetes mellitus Lung disease Cancer Father No problems noted. Sister Depression Maternal Grandfather Heart disease Lung cancer Maternal Grandmother COPD with emphysema Paternal Grandfather No problems noted. Paternal Grandmother No problems noted. 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 Pets and animals: No Sexually active: Yes Do you think of yourself as: straight/heterosexual Current gender identity: male What is your relationship status?: How often do you talk on the phone with friends or family?: three or more times per week How often do you get together with friends or relatives?: three or more times per week How often do you attend latter day or catholic services?: decline to answer Do you belong to any clubs or organized social groups?: decline to answer Panel score (0-1 are the most socially isolated patients): 1 What type of physical activity do you participate in: walking Duration: 15-30 minutes/day Frequency: daily Kay/Baptism: none Special kay needs: No Seatbelt use: never Helmet use: Yes Helmet use: always Drive intox or ride w/intox shuttle 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 Course <AUGUST Rodrigues - Last Filed: 03/27/23 20:41> Vital Signs Vital signs: Vital Signs Temperature 36.8 C 03/26/23 10:07 Pulse 81 03/26/23 10:07 Respiratory Rate 20 03/26/23 10:07 Pulse Oximetry 97 03/26/23 10:07 Temperature 36.8 C 03/26/23 10:07 Temperature Source Oral 03/26/23 10:07 Pulse 81 03/26/23 10:07 Respiratory Rate 20 03/26/23 10:45 Respiratory Effort Normal, Non-Labored 03/26/23 10:45 Respiratory Depth Normal 03/26/23 10:45 Blood Pressure Position Sitting 03/26/23 10:07 Pulse Oximetry 97 03/26/23 10:07 Oxygen Delivery Method Room Air 03/26/23 10:07 Oxygen Flow Rate 0 03/26/23 10:07 Pain Level 3 03/26/23 14:19 Lab/Test Results Lab/Test Results: 03/26/23 11:15 Urine - Reflex from Ua Urine Culture - Pending Laboratory Tests Range/Units 03/26/23 03/26/23 03/26/23 11:15 11:15 11:15 WBC (4.4-10.8) 10^3/uL 12.75 H RBC (4.36-5.78) 10^6/uL 4.59 Hgb (13.5-17.5) g/dL 13.1 L Hct (40.0-50.0) % 39.6 L MCV (80-95) fL 86 MCH (27.0-33.0) pg 28.5 MCHC (32.0-36.0) % 33.1 RDW (11.8-14.1) % 14.7 H Plt Count (130-400) 10^3/uL 285 MPV (8.0-11.0) fL 10.8 Immature Gran % 0.4 Neutrophils % 76.1 Lymphocytes % 13.6 Monocytes % 7.8 Eosinophils % 1.6 Basophils % 0.5 Nucleated RBC % (0.0-0.3) % 0.0 Absolute Neutrophils (1.2-6.7) 10^3/uL 9.70 H Absolute Lymphocytes (1.2-3.4) 10^3/uL 1.73 Absolute Monocytes (0.1-0.8) 10^3/uL 0.99 H Absolute Eosinophils (0.0-0.7) 10^3/uL 0.20 Absolute Basophils (0.0-0.2) 10^3/uL 0.06 Sodium (136-145) mmol/L 139 Potassium (3.5-5.1) mmol/L 3.6 Chloride (98-107) mmol/L 100 Carbon Dioxide (21.0-32.0) mmol/L 32.0 Anion Gap (3-11) mmol/L 7.0 BUN (7-18) mg/dL 10 Creatinine (0.70-1.30) mg/dL 0.9 Est GFR (CKD-EPI 2020) (mL/min/1.73m2) 100.24 Glucose (74-106) mg/dL 104 Calcium (8.5-10.1) mg/dL 8.9 Total Bilirubin (0.2-1.0) mg/dL 0.6 AST (15-37) U/L 18 ALT (16-63) U/L 23 Alkaline Phosphatase (46-116) U/L 76 Total Protein (6.4-8.2) g/dL 7.9 Albumin (3.4-5.0) g/dL 3.5 Urine Color (Yellow) Yellow Urine Clarity (Clear) Clear Urine pH (5-8) 7.5 Ur Specific [place] (1.005-1.025) 1.015 Urine Protein (Negative) mg/dL Negative Urine Ketones (Negative) mg/dL Negative Urine Blood (Negative) Negative Urine Nitrite (Negative) Negative Urine Bilirubin (Negative) Negative Urine Urobilinogen (Up to 0.2) mg/dL 0.2 Ur Leukocyte Esterase (Negative) Small H Urine RBC (0-2) HPF Negative Urine WBC (0-5) HPF 10-20 H Ur Epithelial Cells (Negative) HPF Few Urine Crystals (Negative) HPF Negative Urine Bacteria (Negative) HPF Rare Urine Casts (Negative) LPF Negative Urine Mucus (Negative) Trace Ur Culture Indicated? Yes Urine Glucose (Negative) mg/dL Negative Sign Out <AUGUST Rodrigues - Last Filed: 03/27/23 20:41> Sign Out Data: Sign Out Comment: pending ct abd/pelvis interp/disp Last updated by Tosin Syed PA at 03/26/23 15:56
[2023-03-26] MEDS: Normal Saline - Diluent 50 ML VIAL IJ (15:26)
[2023-03-26] MEDS: Normal Saline Flush 10 ML SYR IVP (15:27)
[2023-03-26] MEDS: Omnipaque 350 MG/ML 100 ML BTL IJ (15:28)
[2023-03-26] MEDS: cefTRIAXone 1 GM/50 ML BAG IVPB (18:13)
--- NOTE | 2023-03-26 18:32 | NUR.NOTE ---
Referral given to Care Management to [facility] Colorectal Surgery: anal fissure,inguinal hernias: 1 week Nursing Note:
[2023-03-26] MEDS: Cephalexin 500 MG CAP, 2 CAPS/BTL PO (19:33)
[2023-03-26 19:34] VITALS: BP 160/97; PULSE 70; RESP 20; O2SAT 93
== END 2023-03-26 19:33 | disposition home or self-care (01) ==
PROVIDERS: Physician Assistant; Emergency Provider Registered Nurse Emergency; PCP Nurse Practitioner Family
DX: K60.1 Chronic anal fissure (principal); N39.0 Urinary tract infection, site not specified
CPT/HCPCS: 80053; 96365; 96375; 96376; 99285; 74177; 81003; 81015; 85025; 87086; 99284; J0696; J1170; J3490; Q9967

== ENCOUNTER 2023-03-27 09:42 | Emergency (ER) | payer MEDICAID, SELFPAY ==
[2023-03-27 09:50] VITALS: BP 134/99; PULSE 90; RESP 18; TEMP 36.4; O2SAT 96
--- NOTE | 2023-03-27 10:18 | ED.GENADUL_ITS ---
Discharge Plan Disposition Patient Disposition: Home Condition: Stable Discharge Details Clinical Impression: Rectal pain Primary Care Provider: Sanjeev Brewer ED Provider: Baljinder Ambrosio Home Meds and New Rx's Prescriptions: New Proctofoam HC 1-1 % foam 1 applic CO BID 14 Days Qty: 10 0RF Continued escitalopram oxalate 20 mg tablet 20 mg PO DAILY Qty: 90 3RF Rx Instructions: Take 1 tablet daily sildenafil [Viagra] 50 mg tablet 50 mg PO DAILY PRN (Reason: sexual activity) Qty: 60 4RF Hold Instructions: Resume on 04/06/23. Do not use while on tamsulosin and/or nitroglycerin ointment Rx Instructions: Take 1 tablet 1 hour before sexual activity; may be taken up to 4 hours before sexual activity albuterol sulfate 2.5 mg /3 mL (0.083 %) solution for nebulization 2.5 mg inhalation QID PRN (Reason: shortness of breath or wheezing) Qty: 180 12RF fluticasone propion-salmeterol [Advair HFA] 230-21 mcg/actuation HFA aerosol inhaler 2 puff inhalation BID Qty: 12 12RF (DME) Oxygen Tank See Rx Instructions .Route Qty: 99 0RF Rx Instructions: 1LPM as needed with exertion or rest albuterol sulfate 90 mcg/actuation HFA aerosol inhaler 2 inh inhalation Q4H PRN (Reason: shortness of breath or wheezing) Qty: 18 1RF mirtazapine 15 mg tablet 15 mg PO DAILY Qty: 30 0RF Rx Instructions: Take 1/2 a tab (7.5mg) for the first week. Increase to 1 tab (15mg). lisinopril 40 mg tablet 40 mg PO DAILY Qty: 90 4RF Rx Instructions: Take 1 tablet daily furosemide 80 mg tablet 80 mg PO BID Qty: 180 3RF nitroglycerin 0.4 % (w/w) ointment 1 inch CO BID Qty: 30 0RF hydroxyzine pamoate [Vistaril] 25 mg Capsule 25 mg PO TID Qty: 90 0RF ibuprofen 800 mg Tablet 800 mg PO TID Qty: 90 0RF pregabalin 75 mg Capsule 75 mg PO HS Qty: 30 0RF tamsulosin 0.4 mg Capsule 0.4 mg PO DAILY Qty: 30 0RF lidocaine HCl 2 % jelly in applicator 1 applic topical BID-QID PRNQty: 500 0RF Discontinued oxycodone 5 mg capsule 5 mg PO QID MDD 20 mg PRN (Reason: pain) Qty: 10 0RF Rx Instructions: Take 1 capsule by mouth every 6 hours as needed for moderate to severe pain. Please take with food and no driving or operating heavy machinery while on this medication. No Action hydromorphone [Dilaudid] 2 mg tablet 2 mg PO Q6H MDD 8 mg PRN (Reason: pain) Qty: 20 0RF naloxone [Narcan] 4 mg/actuation spray,non-aerosol 4 mg intranasal Q2M PRN (Reason: opioid overdose) Qty: 2 0RF Rx Instructions: spray 1 dose into ONE nostril; alternate nostrils w each dose until help arrives ciprofloxacin HCl [Cipro] 500 mg tablet 500 mg PO BID 7 Days Qty: 14 0RF metronidazole 500 mg tablet 500 mg PO TID 7 Days Qty: 21 0RF Discharge Instructions Instructions: Rectal Pain (ED) Additional Instructions: Please continue to perform sitz bath's. Please take antibiotic that was prescribed on previous visit and be sure to complete the full course. Please use suppository as prescribed. Please follow-[place] with [place] [facility] Please contact your primary care physician to arrange follow-up. Return to the ER immediately for any worsening or new concerning symptoms. Referrals: Sanjeev Brewer NP [Primary Care Provider] - Discharge Data Discharge Date/Time-TO BE ENTERED AT DEPARTURE: 03/27/23 16:28 Medical Decision Making 1021??58-year-old male with history of anal fissure, here with severe rectal pain. Patient had diagnostic work-up yesterday was discharged on Keflex, oxycodone sitz bath. Pain has persisted despite these therapies. I reviewed CT abdomen pelvis report as interpreted by radiology 03/26/2023: 1. Persistent soft tissue stranding in the right gluteal subcutaneous tissues.? No focal fluid collection or subcutaneous gas is seen.? No evidence of a perirectal abscess. 2. Persistent mild stranding in the subcutaneous fat along both the right left abdominal wall.? This is nonspecific.? No focal fluid collection is seen. 3. Stable mild thickening of the wall of the rectum.? This may be due to underdistention.? No perirectal inflammation is seen.? Proctitis cannot be entirely excluded.? Plan to recheck labs. Will establish IV access and provide IV analgesia with Dilaudid and acetaminophen. I have consulted general surgery, spoke with Dr. Basurto regarding ED presentation, he will evaluate the patient. -- Labs reviewed. -- Patient was seen by Dr. Basurto who recommends proctofoam and discharge to followup [place] [facility] [place]. Disposition decision was made weighing the risks and benefits of hospitalization versus outpatient treatment, the risk for further decompensation, and the patient's wishes. The patient was stable and requested discharge. Prior to discharge, my usual and customary return precautions were reviewed with the patient - this included follow-up instructions and reason to return to the emergency department if condition worsens, does not improve as expected, or other new concerns arise. Lab Data Lab results reviewed: Yes I reviewed the patient's lab results. Labs: Laboratory Tests Range/Units 03/27/23 03/27/23 10:43 10:43 WBC (4.4-10.8) 10^3/uL 10.28 RBC (4.36-5.78) 10^6/uL 4.67 Hgb (13.5-17.5) g/dL 13.2 L Hct (40.0-50.0) % 39.9 L MCV (80-95) fL 85 MCH (27.0-33.0) pg 28.3 MCHC (32.0-36.0) % 33.1 RDW (11.8-14.1) % 14.9 H Plt Count (130-400) 10^3/uL 275 MPV (8.0-11.0) fL 10.8 Immature Gran % 0.3 Neutrophils % 74.3 Lymphocytes % 13.1 Monocytes % 9.1 Eosinophils % 2.6 Basophils % 0.6 Nucleated RBC % (0.0-0.3) % 0.0 Absolute Neutrophils (1.2-6.7) 10^3/uL 7.63 H Absolute Lymphocytes (1.2-3.4) 10^3/uL 1.35 Absolute Monocytes (0.1-0.8) 10^3/uL 0.94 H Absolute Eosinophils (0.0-0.7) 10^3/uL 0.27 Absolute Basophils (0.0-0.2) 10^3/uL 0.06 Sodium (136-145) mmol/L 139 Potassium (3.5-5.1) mmol/L 3.8 Chloride (98-107) mmol/L 100 Carbon Dioxide (21.0-32.0) mmol/L 32.1 H Anion Gap (3-11) mmol/L 6.9 BUN (7-18) mg/dL 13 Creatinine (0.70-1.30) mg/dL 0.9 Est GFR (CKD-EPI 2020) (mL/min/1.73m2) 100.24 Glucose (74-106) mg/dL 98 Calcium (8.5-10.1) mg/dL 8.7 Total Bilirubin (0.2-1.0) mg/dL 0.5 AST (15-37) U/L 18 ALT (16-63) U/L 21.0 Alkaline Phosphatase (46-116) U/L 76 Total Protein (6.4-8.2) g/dL 7.7 Albumin (3.4-5.0) g/dL 3.3 L HPI General Mode of arrival: ambulatory . Date/Time Provider Initiated Documentation: 03/27/23 10:04 . Limitations to Documentation: no limitations . Information obtained by: patient . HPI Narrative: 58-year-old male with multiple medical problems including heart failure, severe sleep apnea, morbid obesity, anal fissure, here with severe rectal pain. Patient notes he has been having pain in his rectum since October. Pain worse recently. He was seen here in the emerge department yesterday and had CT imaging and diagnostic labs. He was discharged on Keflex and oxycodone and instructed use sitz bath's. He has been taking meds as prescribed. He denies associated fever. Related Data Home Medications Medication Instructions Recorded Confirmed escitalopram oxalate 20 mg tablet 20 mg PO DAILY #90 tabs 09/18/22 04/10/23 sildenafil 50 mg tablet (Viagra) 50 mg PO DAILY PRN sexual activity 09/18/22 04/10/23 #60 tabs albuterol sulfate 90 mcg/actuation 2 inh inhalation Q4H PRN shortness 11/16/22 04/10/23 aerosol inhaler of breath or wheezing #18 grams Oxygen #99 ea 12/21/22 04/10/23 fluticasone propionate 230 2 puff inhalation BID #12 grams 12/21/22 04/10/23 mcg-salmeterol 21 mcg/actuation HFA inhaler (Advair HFA) mirtazapine 15 mg tablet 15 mg PO DAILY #30 tabs 02/01/23 04/10/23 albuterol sulfate 2.5 mg/3 mL 2.5 mg (3 mL) inhalation QID PRN 02/19/23 04/10/23 (0.083 %) solution for nebulization shortness of breath or wheezing #180 mL hydroxyzine pamoate 25 mg capsule 25 mg PO TID #90 caps 02/26/23 04/10/23 (Vistaril) ibuprofen 800 mg tablet 800 mg PO TID #90 tabs 02/26/23 04/10/23 pregabalin 75 mg capsule 75 mg PO HS #30 caps 02/26/23 04/10/23 tamsulosin 0.4 mg capsule 0.4 mg PO DAILY #30 caps 02/26/23 04/10/23 lidocaine HCl 2 % mucosal jelly in 1 applic topical BID-QID PRN #500 03/09/23 04/10/23 applicator mL furosemide 80 mg tablet 80 mg PO BID #180 tabs 03/13/23 04/10/23 lisinopril 40 mg tablet 40 mg PO DAILY #90 tabs 03/13/23 04/10/23 hydrocortisone 1 %-pramoxine 1 % 1 applic CO BID 2 weeks #10 grams 03/27/23 04/10/23 rectal foam (Proctofoam HC) nitroglycerin 0.4 % (w/w) rectal 1 inch CO BID #30 grams 03/27/23 04/10/23 ointment hydromorphone 2 mg tablet 2 mg PO Q6H PRN pain #20 tabs 04/01/23 04/10/23 (Dilaudid) naloxone 4 mg/actuation nasal 4 mg intranasal Q2M PRN opioid 04/01/23 04/10/23 spray (Narcan) overdose #2 ea ciprofloxacin HCl 500 mg tablet 500 mg PO BID 7 days #14 tabs 04/09/23 04/10/23 (Cipro) metronidazole 500 mg tablet 500 mg PO TID 7 days #21 tabs 04/09/23 04/10/23 Previous Rx's Medication Instructions Recorded escitalopram oxalate 20 mg tablet 20 mg PO DAILY #90 tabs 09/18/22 sildenafil 50 mg tablet (Viagra) 50 mg PO DAILY PRN sexual activity 09/18/22 #60 tabs albuterol sulfate 90 mcg/actuation 2 inh inhalation Q4H PRN shortness 11/16/22 aerosol inhaler of breath or wheezing #18 grams Oxygen #99 ea 12/21/22 fluticasone propionate 230 2 puff inhalation BID #12 grams 12/21/22 mcg-salmeterol 21 mcg/actuation HFA inhaler (Advair HFA) mirtazapine 15 mg tablet 15 mg PO DAILY #30 tabs 02/01/23 albuterol sulfate 2.5 mg/3 mL 2.5 mg (3 mL) inhalation QID PRN 02/19/23 (0.083 %) solution for nebulization shortness of breath or wheezing #180 mL hydroxyzine pamoate 25 mg capsule 25 mg PO TID #90 caps 02/26/23 (Vistaril) ibuprofen 800 mg tablet 800 mg PO TID #90 tabs 02/26/23 pregabalin 75 mg capsule 75 mg PO HS #30 caps 02/26/23 tamsulosin 0.4 mg capsule 0.4 mg PO DAILY #30 caps 02/26/23 lidocaine HCl 2 % mucosal jelly in 1 applic topical BID-QID PRN #500 03/09/23 applicator mL furosemide 80 mg tablet 80 mg PO BID #180 tabs 03/13/23 lisinopril 40 mg tablet 40 mg PO DAILY #90 tabs 03/13/23 hydrocortisone 1 %-pramoxine 1 % 1 applic CO BID 2 weeks #10 grams 03/27/23 rectal foam (Proctofoam HC) nitroglycerin 0.4 % (w/w) rectal 1 inch CO BID #30 grams 03/27/23 ointment hydromorphone 2 mg tablet 2 mg PO Q6H PRN pain #20 tabs 04/01/23 (Dilaudid) naloxone 4 mg/actuation nasal 4 mg intranasal Q2M PRN opioid 04/01/23 spray (Narcan) overdose #2 ea ciprofloxacin HCl 500 mg tablet 500 mg PO BID 7 days #14 tabs 04/09/23 (Cipro) metronidazole 500 mg tablet 500 mg PO TID 7 days #21 tabs 04/09/23 Allergies Allergy/AdvReac Type Severity Reaction Status Date / Time plums AdvReac Unknown Uncoded 04/10/23 08:48 General Stated Complaint: [facility] MONTRELL: 3 PFSH All Active Problems Chewing tobacco use (Chronic) Severe obstructive sleep apnea (Chronic) Original PSG 12/02/16; BIPAP Prediabetes (Chronic) Depressive disorder (Chronic) Insomnia (Chronic) Morbid obesity with BMI of 60.0-69.9, adult (Chronic) Lower extremity ulceration (Acute) Acute on chronic respiratory failure with hypoxia and hypercapnia (Acute) Venous stasis dermatitis (Acute) Dyspnea (Acute) Right heart failure (Acute) Anal or rectal pain (Acute) Chronic anal fissure (Acute) Rectal pain (Acute) Diverticulitis (Chronic) Medical History Acute UTI Anal or rectal pain Asthma Cellulitis of right lower extremity Diastolic CHF Essential hypertension Hyperlipidemia Obesity hypoventilation syndrome Pain, rectal Weight gain with edema Surgical History H/O umbilical hernia repair (05/26/14) S/P appendectomy S/P colonoscopy (12/14/16) Family History Mother , at 70 from metastatic breast cancer Essential hypertension Metastatic breast cancer Type 2 diabetes mellitus Lung disease Cancer Father No problems noted. Sister Depression Maternal Grandfather Heart disease Lung cancer Maternal Grandmother COPD with emphysema Paternal Grandfather No problems noted. Paternal Grandmother No problems noted. 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 Pets and animals: No Sexually active: Yes Do you think of yourself as: straight/heterosexual Current gender identity: male What is your relationship status?: How often do you talk on the phone with friends or family?: three or more times per week How often do you get together with friends or relatives?: three or more times per week How often do you attend congregation or adventist services?: decline to answer Do you belong to any clubs or organized social groups?: decline to answer Panel score (0-1 are the most socially isolated patients): 1 What type of physical activity do you participate in: walking Duration: 15-30 minutes/day Frequency: daily Kay/Muslim: none Special kay needs: No Seatbelt use: never Helmet use: Yes Helmet use: always Drive intox or ride w/intox 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 Basurto performed) Neuro General: patient alert and patient awake Course Vital Signs Vital signs: Vital Signs Temperature 36.4 C L 03/27/23 09:50 Pulse 90 03/27/23 09:50 Respiratory Rate 18 03/27/23 09:50 Blood Pressure 134/99 H 03/27/23 09:50 Pulse Oximetry 96 03/27/23 09:50 Temperature 36.4 C L 03/27/23 09:50 Temperature Source Oral 03/27/23 09:50 Pulse 90 03/27/23 09:50 Respiratory Rate 18 03/27/23 09:50 Blood Pressure 134/99 H 03/27/23 09:50 Blood Pressure Position Sitting 03/27/23 09:50 Pulse Oximetry 96 03/27/23 09:50 Oxygen Delivery Method Room Air 03/27/23 09:50 Oxygen Flow Rate 0 03/27/23 09:50 Pain Level 10 03/27/23 09:50
[2023-03-27] MEDS: HYDROmorphone 2 MG/ML SYR 1 MG IVP ×2 (10:45→13:28)
[2023-03-27] MEDS: ACETAMINOPHEN 1,000 MG/100 ML BTL 400 MG IVPB (10:47)
[2023-03-27 10:49] LABS: Abs Immature Grans 0.03 10^3/uL (0.0-0.06); Absolute Basophil Count 0.06 10^3/uL (0.0-0.2); Absolute Eosinophil Count 0.27 10^3/uL (0.0-0.7); Absolute Lymphocyte Count 1.35 10^3/uL (1.2-3.4); Absolute Monocyte Count 0.94 10^3/uL (0.1-0.8); Absolute Neutrophil Count 7.63 10^3/uL (1.2-6.7); Basophils % 0.6; Eosinophils % 2.6; HCT 39.9 % (40.0-50.0); HGB 13.2 g/dL (13.5-17.5); Immature Grans % 0.3; Lymphocytes % 13.1; MCH 28.3 pg (27.0-33.0); MCHC 33.1 % (32.0-36.0); MCV 85 fL (80-95); MPV 10.8 fL (8.0-11.0); Monocytes % 9.1; Neutrophils % 74.3; Platelet Count 275 10^3/uL (130-400); RBC 4.67 10^6/uL (4.36-5.78); RDW 14.9 % (11.8-14.1); RDW-SD 46.5 fL; WBC 10.28 10^3/uL (4.4-10.8)
[2023-03-27 11:04] LABS: AST 18 U/L (15-37); Albumin 3.3 g/dL (3.4-5.0); Alkaline Phosphatase 76 U/L (46-116); Anion Gap 6.9 mmol/L (3-11); BUN 13 mg/dL (7-18); Bilirubin, Total 0.5 mg/dL (0.2-1.0); CO2 32.1 mmol/L (21.0-32.0); CREATININE 0.9 mg/dL (0.70-1.30); Calcium 8.7 mg/dL (8.5-10.1); Chloride 100 mmol/L (98-107); Estimated GFR 100.24 (mL/min/1.73m2); Glucose 98 mg/dL (74-106); Potassium 3.8 mmol/L (3.5-5.1); Sodium 139 mmol/L (136-145); Total Protein 7.7 g/dL (6.4-8.2)
--- NOTE | 2023-03-27 12:34 | SCONE_ITS ---
Date of service: 03/27/23 Time of Service: 12:34 Assessment and Plan Assessment and plan (1) Anal or rectal pain: Status: Acute Assessment and plan: He seems to have refractory anal pain secondary to a fissure, although the timing of this as it relates to his colonoscopy and Botox injection seems a l ittle atypical. I would continue with topical therapies for traditional anal fissure pain, including topical lidocaine and Proctofoam. May be worth a trying a mesalamine enema, though it does not sound like there were obvious signs of ulcerative colitis or other proctitis appreciated on his colonoscopy. It is difficult for me to tell if any biopsies were actually performed at the time of the procedure. Unfortunately, as was the case with his previous encounter, his comorbidities pose significant risk for procedural sedation for a more thorough exam under anesthesia here at [facility]. In fact, it seems like he had some postprocedural hypoxemia at [facility] after the colonoscopy. If were not able to get his pain under control here, he may benefit from definitive transfer down to [facility] fo r their expertise and resources. History of Present Illness History of Present Illness Chief Complaint: Anal pain Narrative: Aamir is in the emergency department because of increasing anal pain. His pain for started around the end of January. It was acute in onset, and he describes it as sharp and burning. The pain continued to increase until it was intolerable, and cause difficulty with ambulation. He was admitted to the hospital on February 23. At that time, he had a leukocytosis and some acute kidney injury. Unfortunately, his comorbidities precluded appropriate sedation and analgesia for a formal exam under anesthesia. Therefore, he was treated empirically with antibiotics, and topical as well as systemic analgesics, he was hospitalized for about 2 days, and discharged home when his pain was better managed. He continued to have pain as an outpatient, and went to the emergency department at [facility] on March 13. He underwent colonoscopy during that hospitalization was found to have diverticulosis, as well as a posterior anal fissure. His anus was injected with Botox. Subsequently, he was discharged home. He came back to the emergency department yesterday with several days of increasing perianal pain. He describes as identical to what he experienced before. It is worse with flatulence. He has been using stool softeners to help with basic toilet hygiene. Review of Systems Eyes Eyes: Reports system reviewed and no additional complaints, except as documented ENT Ears, Nose, Mouth, and Throat: Reports system reviewed and no additional complaints, except as documented Cardiovascular Cardiovascular: Denies chest pain and Denies dyspnea Respiratory Respiratory: Denies chest congestion, Denies cough and Denies dyspnea Gastrointestinal Gastrointestinal: Denies abdominal pain, Denies bloating and Reports loose stools Comments: Severe perianal pain Genitourinary Genitourinary: Denies dysuria and Denies scrotal swelling Musculoskeletal Musculoskeletal: Reports abnormal gait (Secondary to anal pain) Neurologic Neurologic: Reports abnormal gait (Secondary to anal pain) PFSH All Active Problems Chewing tobacco use (Chronic) Severe obstructive sleep apnea (Chronic) Original PSG 12/02/16; BIPAP Prediabetes (Chronic) Depressive disorder (Chronic) Insomnia (Chronic) Morbid obesity with BMI of 60.0-69.9, adult (Chronic) Lower extremity ulceration (Acute) Acute on chronic respiratory failure with hypoxia and hypercapnia (Acute) Venous stasis dermatitis (Acute) Dyspnea (Acute) Right heart failure (Acute) Constipation (Acute) Acute anal fissure (Acute) Acute UTI (Acute) Anal or rectal pain (Acute) Chronic anal fissure (Acute) Medical History Anal or rectal pain Asthma Cellulitis of right lower extremity Diastolic CHF Essential hypertension Hyperlipidemia Obesity hypoventilation syndrome Pain, rectal Weight gain with edema Surgical History H/O umbilical hernia repair (05/26/14) S/P appendectomy S/P colonoscopy (12/14/16) Family History Mother , at 70 from metastatic breast cancer Essential hypertension Metastatic breast cancer Type 2 diabetes mellitus Lung disease Cancer Father No problems noted. Sister Depression Maternal Grandfather Heart disease Lung cancer Maternal Grandmother COPD with emphysema Paternal Grandfather No problems noted. Paternal Grandmother No problems noted. 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 Pets and animals: No Sexually active: Yes Do you think of yourself as: straight/heterosexual Current gender identity: male What is your relationship status?: How often do you talk on the phone with friends or family?: three or more times per week How often do you get together with friends or relatives?: three or more times per week How often do you attend adventism or restoration services?: decline to answer Do you belong to any clubs or organized social groups?: decline to answer Panel score (0-1 are the most socially isolated patients): 1 What type of physical activity do you participate in: walking Duration: 15-30 minutes/day Frequency: daily Kay/Pentecostalism: none Special kay needs: No Seatbelt use: never Helmet use: Yes Helmet use: always Drive intox or ride w/intox 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 Externally, there are no thrombosed external hemorrhoids. There is no erythema or fluctuance. He is tender all around the anus. Results Last Vital Signs Temp 97.5 F L 03/27/23 09:50 Pulse 90 03/27/23 09:50 Resp 18 03/27/23 09:50 BP 134/99 H 03/27/23 09:50 Pulse Ox 96 03/27/23 09:50 Labs 03/27/23 10:43 03/27/23 10:43 Labs: Laboratory Results - last 24 hr 03/27/23 03/27/23 10:43 10:43 WBC 10.28 RBC 4.67 Hgb 13.2 L Hct 39.9 L MCV 85 MCH 28.3 MCHC 33.1 RDW 14.9 H Plt Count 275 MPV 10.8 Immature Gran % 0.3 Neutrophils % 74.3 Lymphocytes % 13.1 Monocytes % 9.1 Eosinophils % 2.6 Basophils % 0.6 Nucleated RBC % 0.0 Absolute Neutrophils 7.63 H Absolute Lymphocytes 1.35 Absolute Monocytes 0.94 H Absolute Eosinophils 0.27 Absolute Basophils 0.06 Sodium 139 Potassium 3.8 Chloride 100 Carbon Dioxide 32.1 H Anion Gap 6.9 BUN 13 Creatinine 0.9 Est GFR (CKD-EPI 2020) 100.24 Glucose 98 Calcium 8.7 Total Bilirubin 0.5 AST 18 ALT 21.0 Alkaline Phosphatase 76 Total Protein 7.7 Albumin 3.3 L
[2023-03-27] MEDS: Ketorolac 15 MG/ML VIAL IVP (13:49)
--- NOTE | 2023-03-27 14:57 | NUR.NOTE ---
Nursing Note: PT needs PCP follow up [facility] for multiple [place] [facility] [place]. Megan, ED
[2023-03-27 16:26] VITALS: PULSE 68; TEMP 36.3; O2SAT 91
--- NOTE | 2023-03-27 16:30 | CMACTNOTE_ITS ---
Date of service: 03/27/23 Time of Service: 16:30 Care Management Activity Note Activity Note Text Activity Note Text: Aamir presents in the ED for severe rectal pain. At the request of ED provider, CM coordinates a referral to [facility] Colon and Rectal Surgery to assist Aamir in obtaining an appointment for treatment of anorectal disorder. He has Medicaid for insurance.
== END 2023-03-27 16:28 | disposition home or self-care (01) ==
PROVIDERS: Emergency Provider Student in an Organized Health Care Education/Training Program; PCP Nurse Practitioner Family
DX: K60.2 Anal fissure, unspecified (principal); K62.89 Other specified diseases of anus and rectum
CPT/HCPCS: 36415; 80053; 96365; 96375; 96376; 99284; 85025; 99285; J0131; J1170; J1885

== ENCOUNTER 2023-04-09 20:42 | Emergency (ER) | payer MEDICAID, SELFPAY ==
--- NOTE | 2023-04-09 20:45 | DI.CT_ITS ---
Exam(s) CT ABDOMEN PELVIS W EXAM: CT ABDOMEN PELVIS W CLINICAL HISTORY: mid to lower abdominal pain w/ diarrhea, hx appe. TECHNIQUE: Imaging Protocol: Axial computed tomography images with coronal and sagittal reformatted images were created and reviewed CONTRAST MATERIAL: Intravenous: Omnipaque 350 Contrast volume:100 ml Oral: no COMPARISON: CT CT ABDOMEN PELVIS W from 03/26/2023 FINDINGS: Exam limited by patient body habitus. ABDOMEN: Lung Bases: Normal where visualized. Liver: Enlarged. Hepatic steatosis.. No measurable mass. Gallbladder and biliary tract: No radiodense calculus or dilation. Pancreas: Normal density, no abnormal calcifications or inflammatory process. Spleen: Normal. Kidneys: Normal size, contour and axis. No radiodense stones or obstructive uropathy. No suspicious m asses seen. Adrenal glands: No masses seen. Vasculature: Abdominal aorta non-dilated. Soft tissues: Small fatty containing right inguinal hernia. Scarring in the subcutaneous fat of the right buttock region. No change from prior. PELVIS: Bladder: No gross wall thickening. No calculi.No focal mass. Bowel: Diverticulosis and colon with mild surrounding stranding. This may represent mild diverticuli tis. No obstruction. Appendix not seen.. Peritoneal cavity: No ascites, focal collection or free air. Bones: Advanced degenerative disc changes. Reproductive organs: Within normal limits. Lymph nodes: Unremarkable. IMPRESSION:: Sigmoid diverticulosis and question of mild diverticulitis. RADIATION DOSE DELIVERED: 1,972.8mGy.cm Total DLP DATA REPOSITORY: All CT scans at this facility are submitted to the National Radiology Data Registry (NRDR) Dose Index Registry (DIR) with the [employer] (A[employer]). RADIATION OPTIMIZATION: All CT scans at this facility use at least one of these dose optimization te chniques: automated exposure control; mA and/or kV adjustment per patient size (includes targeted exa ms where dose is matched to clinical indication); or iterative reconstruction.
[2023-04-09 20:46] VITALS: BP 172/87; PULSE 88; RESP 16; TEMP 36.7; O2SAT 95
[2023-04-09] MEDS: Normal Saline 500 ML IV (21:00)
[2023-04-09] MEDS: Ketorolac 15 MG/ML VIAL IVP (21:00)
[2023-04-09 21:05] LABS: Abs Immature Grans 0.04 10^3/uL (0.0-0.06); Absolute Basophil Count 0.07 10^3/uL (0.0-0.2); Absolute Eosinophil Count 0.17 10^3/uL (0.0-0.7); Absolute Lymphocyte Count 1.74 10^3/uL (1.2-3.4); Absolute Monocyte Count 0.99 10^3/uL (0.1-0.8); Absolute Neutrophil Count 6.85 10^3/uL (1.2-6.7); Basophils % 0.7; Eosinophils % 1.7; HCT 40.5 % (40.0-50.0); HGB 13.5 g/dL (13.5-17.5); Immature Grans % 0.4; Lymphocytes % 17.6; MCH 28.5 pg (27.0-33.0); MCHC 33.3 % (32.0-36.0); MCV 85 fL (80-95); MPV 10.8 fL (8.0-11.0); Neutrophils % 69.6; Platelet Count 302 10^3/uL (130-400); RBC 4.74 10^6/uL (4.36-5.78); RDW 14.8 % (11.8-14.1); RDW-SD 46.5 fL; WBC 9.86 10^3/uL (4.4-10.8)
--- NOTE | 2023-04-09 21:07 | W.ED.GENAD ---
Discharge Plan Disposition Patient Disposition: Home Discharge Details Clinical Impression: Diverticulitis Primary Care Provider: Sanjeev Brewer ED Provider: Demetris Alonso Home Meds and New Rx's Prescriptions: New ciprofloxacin HCl [Cipro] 500 mg tablet 500 mg PO BID 7 Days Qty: 14 0RF metronidazole 500 mg tablet 500 mg PO TID 7 Days Qty: 21 0RF No Action escitalopram oxalate 20 mg tablet 20 mg PO DAILY Qty: 90 3RF Rx Instructions: Take 1 tablet daily sildenafil [Viagra] 50 mg tablet 50 mg PO DAILY PRN (Reason: sexual activity) Qty: 60 4RF Hold Instructions: Resume on 04/06/23. Do not use while on tamsulosin and/or nitroglycerin ointment Rx Instructions: Take 1 tablet 1 hour before sexual activity; may be taken up to 4 hours before sexual activity albuterol sulfate 2.5 mg /3 mL (0.083 %) solution for nebulization 2.5 mg inhalation QID PRN (Reason: shortness of breath or wheezing) Qty: 180 12RF hydromorphone [Dilaudid] 2 mg tablet 2 mg PO Q6H MDD 8 mg PRN (Reason: pain) Qty: 20 0RF naloxone [Narcan] 4 mg/actuation spray,non-aerosol 4 mg intranasal Q2M PRN (Reason: opioid overdose) Qty: 2 0RF Rx Instructions: spray 1 dose into ONE nostril; alternate nostrils w each dose until help arrives fluticasone propion-salmeterol [Advair HFA] 230-21 mcg/actuation HFA aerosol inhaler 2 puff inhalation BID Qty: 12 12RF (DME) Oxygen Tank See Rx Instructions .Route Qty: 99 0RF Rx Instructions: 1LPM as needed with exertion or rest albuterol sulfate 90 mcg/actuation HFA aerosol inhaler 2 inh inhalation Q4H PRN (Reason: shortness of breath or wheezing) Qty: 18 1RF mirtazapine 15 mg tablet 15 mg PO DAILY Qty: 30 0RF Rx Instructions: Take 1/2 a tab (7.5mg) for the first week. Increase to 1 tab (15mg). lisinopril 40 mg tablet 40 mg PO DAILY Qty: 90 4RF Rx Instructions: Take 1 tablet daily furosemide 80 mg tablet 80 mg PO BID Qty: 180 3RF nitroglycerin 0.4 % (w/w) ointment 1 inch OR BID Qty: 30 0RF hydroxyzine pamoate [Vistaril] 25 mg Capsule 25 mg PO TID Qty: 90 0RF ibuprofen 800 mg Tablet 800 mg PO TID Qty: 90 0RF pregabalin 75 mg Capsule 75 mg PO HS Qty: 30 0RF tamsulosin 0.4 mg Capsule 0.4 mg PO DAILY Qty: 30 0RF lidocaine HCl 2 % jelly in applicator 1 applic topical BID-QID PRNQty: 500 0RF Proctofoam HC 1-1 % foam 1 applic OR BID 14 Days Qty: 10 0RF Discharge Instructions Instructions: Ciprofloxacin (By mouth), Metronidazole (By mouth), Diverticulitis (ED) Additional Instructions: At this time your CAT scan shows evidence of what is called diverticulitis. This is inflammation and mild infection of components of your colon. Please take the antibiotics Cipro and Flagyl as directed. The prescriptions have been sent to your pharmacy on file. Please take the pills as directed that we have given you here to hold you over until your prescriptions are filled. Please take the [place] pain pills only as needed for pain. You can continue to take Tylenol and Motrin as needed for pain. Please stick with a liquid and soft food diet for the next week. Avoid any food with seeds. If you notice any worsening of your symptoms, or any new symptoms such as vomiting, diarrhea, fever, chills, shortness of breath, chest pain, numbness, weakness, or fainting , please return immediately to the emergency department for reevaluation. Please follow up with your primary care provider as soon as possible for reassessment and reevaluation. As always, it was a pleasure participating in your medical care today. Referrals: Sanjeev Brewer NP [Primary Care Provider] - Medical Decision Making 58-year-old male with a past medical history of high BMI, sleep apnea, hypertension, right-sided heart failure, reactive airway disease, anal fissure, previous appendectomy, previous umbilical hernia presents today for evaluation of abdominal pain. Patient states that for the last 2 days he has had achy abdominal pain that is continued and worsened with time. He admits to associated chills and diarrhea. Diarrhea has been present for the last couple of weeks starting after when he was diagnosed with an anal fissure and placed on laxatives. This is since improved. He denies any blood in his stool. Pain is in the umbilical region and radiates downwards. He denies any urinary complaints. He denies any vomiting. No chest pain or shortness of breath. No other complaints at this time. No other aggravating or relieving factors. He has not eaten anything over the last few days because of the pain. Exam demonstrates mild abdominal tenderness throughout the periumbilical and lower abdominal regions. No significant guarding or rebound. Differential is broad but includes diverticulitis, pancreatitis, less likely hernia. Symptoms appear inconsistent with acute mesenteric ischemia. We will start treating with Toradol, gently rehydrate, monitor closely, get a CAT scan and reassess. 11:[address] scan shows evidence of mild pericolic stranding with potential for diverticulitis. Concern for mild colitis as well. Remainder CT scan unremarkable per V rad. No white count or bandemia. Mild left shift. Lactate normal. No fever. Electrolytes stable. Patient otherwise looks well. Patient drove himself, and he states he does not have someone to pick him up and he would be driving himself home. We will hold off on IV narcotics, and instead give a small bottle of [place] pain pills to go for home use. We will give Cipro and Flagyl for treatment of colitis/diverticulitis. We will give a dose here, few pills to go home with, and send prescription to his pharmacy. Patient is otherwise stable and does not show evidence of an acute surgical abdomen clinically. Patient stable for discharge. Discussed red flags which to return. I have extensively reviewed the treatment plan and discharge instructions with the patient. I have addressed all patient concerns at this time. The patient was made aware of what symptoms to monitor for that would warrant a return to the emergency department. Discussed the plan with the patient, they demonstrate verbal understanding and agreement with our assessment and plan at this time. The documentation in this chart was dictated using [employer] dictation software. Please excuse any dictation errors. FINDINGS: Liver: Hepatomegaly and hepatic steatosis. Enlarged liver measures approximately 20.8 cm in craniocaudal dimension. Gallbladder and bile ducts: No calcified stones. No ductal dilation. Pancreas: Unremarkable. No ductal dilation. Spleen: Unremarkable. No splenomegaly. Adrenal glands: Normal. No mass. Kidneys and ureters: Unremarkable. No hydronephrosis. Stomach and bowel: Colonic diverticulosis. Sigmoid colon is under distended, cannot rule out mild colitis. Mild stranding about sigmoid colon, cannot rule out mild diverticulitis. No mechanical bowel obstruction. Unopacified and under distended stomach and small bowel loops grossly unremarkable. Appendix: No evidence of appendicitis. Intraperitoneal space: No free air. No significant fluid collection. Vasculature: No abdominal aortic aneurysm. Lymph nodes: No enlarged lymph nodes. Urinary bladder: Unremarkable as visualized. Reproductive: Unremarkable as visualized. Bones/joints: Degenerative changes throughout the visualized spine. Soft tissues: Unremarkable. IMPRESSION: Colonic diverticulosis with mild pericolonic stranding, cannot rule out mild acute diverticulitis. Additionally, sigmoid colon is under distended cannot rule out mild thickening/colitis. The remainder of the GI tract is unremarkable. Thank you for allowing us to participate in the care of your patient. Dictated and Authenticated by: Jesús Garcia MD 04/09/2023 11:15 PM Eastern Time ([place] & [place]) HPI General Date/Time Provider Initiated Documentation: 04/09/23 20:45. HPI Narrative: 58-year-old male with a past medical history of high BMI, sleep apnea, hypertension, right-sided heart failure, reactive airway disease, anal fissure, previous appendectomy, previous umbilical hernia presents today for evaluation of abdominal pain. Patient states that for the last 2 days he has had achy abdominal pain that is continued and worsened with time. He admits to associated chills and diarrhea. Diarrhea has been present for the last couple of weeks starting after when he was diagnosed with an anal fissure and placed on laxatives. This is since improved. He denies any blood in his stool. Pain is in the umbilical region and radiates downwards. He denies any urinary complaints. He denies any vomiting. No chest pain or shortness of breath. No other complaints at this time. No other aggravating or relieving factors. He has not eaten anything over the last few days because of the pain. Related Data Home Medications Medication Instructions Recorded Confirmed escitalopram oxalate 20 mg tablet 20 mg PO DAILY #90 tabs 09/18/22 04/01/23 sildenafil 50 mg tablet (Viagra) 50 mg PO DAILY PRN sexual activity 09/18/22 04/01/23 #60 tabs albuterol sulfate 90 mcg/actuation 2 inh inhalation Q4H PRN shortness 11/16/22 04/01/23 aerosol inhaler of breath or wheezing #18 grams Oxygen #99 ea 12/21/22 04/01/23 fluticasone propionate 230 2 puff inhalation BID #12 grams 12/21/22 04/01/23 mcg-salmeterol 21 mcg/actuation HFA inhaler (Advair HFA) mirtazapine 15 mg tablet 15 mg PO DAILY #30 tabs 02/01/23 04/01/23 albuterol sulfate 2.5 mg/3 mL 2.5 mg (3 mL) inhalation QID PRN 02/19/23 04/01/23 (0.083 %) solution for nebulization shortness of breath or wheezing #180 mL hydroxyzine pamoate 25 mg capsule 25 mg PO TID #90 caps 02/26/23 04/01/23 (Vistaril) ibuprofen 800 mg tablet 800 mg PO TID #90 tabs 02/26/23 04/01/23 pregabalin 75 mg capsule 75 mg PO HS #30 caps 02/26/23 04/01/23 tamsulosin 0.4 mg capsule 0.4 mg PO DAILY #30 caps 02/26/23 04/01/23 lidocaine HCl 2 % mucosal jelly in 1 applic topical BID-QID PRN #500 03/09/23 04/01/23 applicator mL furosemide 80 mg tablet 80 mg PO BID #180 tabs 03/13/23 04/01/23 lisinopril 40 mg tablet 40 mg PO DAILY #90 tabs 03/13/23 04/01/23 hydrocortisone 1 %-pramoxine 1 % 1 applic OR BID 2 weeks #10 grams 03/27/23 04/01/23 rectal foam (Proctofoam HC) nitroglycerin 0.4 % (w/w) rectal 1 inch OR BID #30 grams 03/27/23 04/01/23 ointment hydromorphone 2 mg tablet 2 mg PO Q6H PRN pain #20 tabs 04/01/23 04/01/23 (Dilaudid) naloxone 4 mg/actuation nasal 4 mg intranasal Q2M PRN opioid 04/01/23 04/01/23 spray (Narcan) overdose #2 ea ciprofloxacin HCl 500 mg tablet 500 mg PO BID 7 days #14 tabs 04/09/23 (Cipro) metronidazole 500 mg tablet 500 mg PO TID 7 days #21 tabs 04/09/23 Previous Rx's Medication Instructions Recorded escitalopram oxalate 20 mg tablet 20 mg PO DAILY #90 tabs 09/18/22 sildenafil 50 mg tablet (Viagra) 50 mg PO DAILY PRN sexual activity 09/18/22 #60 tabs albuterol sulfate 90 mcg/actuation 2 inh inhalation Q4H PRN shortness 11/16/22 aerosol inhaler of breath or wheezing #18 grams Oxygen #99 ea 12/21/22 fluticasone propionate 230 2 puff inhalation BID #12 grams 12/21/22 mcg-salmeterol 21 mcg/actuation HFA inhaler (Advair HFA) mirtazapine 15 mg tablet 15 mg PO DAILY #30 tabs 02/01/23 albuterol sulfate 2.5 mg/3 mL 2.5 mg (3 mL) inhalation QID PRN 02/19/23 (0.083 %) solution for nebulization shortness of breath or wheezing #180 mL hydroxyzine pamoate 25 mg capsule 25 mg PO TID #90 caps 02/26/23 (Vistaril) ibuprofen 800 mg tablet 800 mg PO TID #90 tabs 02/26/23 pregabalin 75 mg capsule 75 mg PO HS #30 caps 02/26/23 tamsulosin 0.4 mg capsule 0.4 mg PO DAILY #30 caps 02/26/23 lidocaine HCl 2 % mucosal jelly in 1 applic topical BID-QID PRN #500 03/09/23 applicator mL furosemide 80 mg tablet 80 mg PO BID #180 tabs 03/13/23 lisinopril 40 mg tablet 40 mg PO DAILY #90 tabs 03/13/23 hydrocortisone 1 %-pramoxine 1 % 1 applic OR BID 2 weeks #10 grams 03/27/23 rectal foam (Proctofoam HC) nitroglycerin 0.4 % (w/w) rectal 1 inch OR BID #30 grams 03/27/23 ointment hydromorphone 2 mg tablet 2 mg PO Q6H PRN pain #20 tabs 04/01/23 (Dilaudid) naloxone 4 mg/actuation nasal 4 mg intranasal Q2M PRN opioid 04/01/23 spray (Narcan) overdose #2 ea ciprofloxacin HCl 500 mg tablet 500 mg PO BID 7 days #14 tabs 04/09/23 (Cipro) metronidazole 500 mg tablet 500 mg PO TID 7 days #21 tabs 04/09/23 Allergies Allergy/AdvReac Type Severity Reaction Status Date / Time plums AdvReac Unknown Uncoded 03/27/23 10:58 General Stated Complaint: Abd Prob MONTRELL: 3 Review of Systems All systems reviewed & are unremarkable except as noted in HPI and below PFSH All Active Problems (Updated 04/09/23 @ 23:38 by Demetris Alonso DO) Chewing tobacco use (Chronic) Severe obstructive sleep apnea (Chronic) Original PSG 12/02/16; BIPAP Prediabetes (Chronic) Depressive disorder (Chronic) Insomnia (Chronic) Morbid obesity with BMI of 60.0-69.9, adult (Chronic) Lower extremity ulceration (Acute) Acute on chronic respiratory failure with hypoxia and hypercapnia (Acute) Venous stasis dermatitis (Acute) Dyspnea (Acute) Right heart failure (Acute) Anal or rectal pain (Acute) Chronic anal fissure (Acute) Rectal pain (Acute) Diverticulitis (Chronic) Medical History Acute UTI Anal or rectal pain Asthma Cellulitis of right lower extremity Diastolic CHF Essential hypertension Hyperlipidemia Obesity hypoventilation syndrome Pain, rectal Weight gain with edema Surgical History H/O umbilical hernia repair (05/26/14) S/P appendectomy S/P colonoscopy (12/14/16) Family History Mother , at 70 from metastatic breast cancer Essential hypertension Metastatic breast cancer Type 2 diabetes mellitus Lung disease Cancer Father No problems noted. Sister Depression Maternal Grandfather Heart disease Lung cancer Maternal Grandmother COPD with emphysema Paternal Grandfather No problems noted. Paternal Grandmother No problems noted. 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 Pets and animals: No Sexually active: Yes Do you think of yourself as: straight/heterosexual Current gender identity: male What is your relationship status?: How often do you talk on the phone with friends or family?: three or more times per week How often do you get together with friends or relatives?: three or more times per week How often do you attend anabaptist or hinduism services?: decline to answer Do you belong to any clubs or organized social groups?: decline to answer Panel score (0-1 are the most socially isolated patients): 1 What type of physical activity do you participate in: walking Duration: 15-30 minutes/day Frequency: daily Kay/Protestant: none Special kay needs: No Seatbelt use: never Helmet use: Yes Helmet use: always Drive intox or ride w/intox driver license reviewing officer: No Do you feel safe at home: Yes Do you feel safe in your relationship?: Yes Exam Narrative Exam Narrative: 1.Const: Well-nourished, Well-developed, appearing stated age 2.Eyes: PERRL, no conjunctival injection, and symmetrical lids. 3.ENT: Atraumatic external nose and ears. Moist MM. Neck: Symmetric, trachea midline, No thyromegaly. 4.CVS: +S1/S2, No murmurs or gallops. Peripheral pulses 2+ and equal in all extremities. Brisk capillary refill in all extremities. 5.RESP: Unlabored respiratory effort. Clear to auscultation bilaterally. No wheezes rales or rhonchi 6.GI: Soft, slightly tender throughout, mild voluntary guarding. No significant CVA tenderness. Tenderness is generalized in the periumbilical and lower abdominal regions. No evidence of large hernia. No genital pain. 7.MSK: Normocephalic/Atraumatic, Extremities w/o deformity or ttp No cyanosis or clubbing, Normal movement of all extremities 8.Skin: Warm, Dry. No rashes or lesions. 9.Neuro: driver license reviewing officer II-XII grossly intact. Sensation grossly intact, no focal neurologic deficits. 10.Psych: (AAO) x3. Appropriate mood and affect Course Vital Signs Vital signs: Vital Signs Temperature 36.7 C 04/09/23 20:46 Pulse 88 04/09/23 20:46 Respiratory Rate 16 04/09/23 20:46 Blood Pressure 172/87 H 04/09/23 20:46 Pulse Oximetry 95 04/09/23 20:46 Temperature 36.7 C 04/09/23 20:46 Pulse 88 04/09/23 20:46 Respiratory Rate 16 04/09/23 20:46 Respiratory Effort Normal 04/09/23 20:51 Blood Pressure 172/87 H 04/09/23 20:46 Pulse Oximetry 95 04/09/23 20:46 Oxygen Delivery Method Room Air 04/09/23 20:46 Oxygen Flow Rate 0 04/09/23 20:46 Pain Level 6 04/09/23 20:46
[2023-04-09 21:08] LABS: Lactate 0.7 mmol/L (0.6-1.4)
[2023-04-09 21:28] LABS: ALT 30 U/L (16-63); AST 19 U/L (15-37); Albumin 3.6 g/dL (3.4-5.0); Alkaline Phosphatase 77 U/L (46-116); Anion Gap 7.9 mmol/L (3-11); BUN 8 mg/dL (7-18); Bilirubin, Total 0.5 mg/dL (0.2-1.0); CO2 27.1 mmol/L (21.0-32.0); CREATININE 0.9 mg/dL (0.70-1.30); Calcium 9.7 mg/dL (8.5-10.1); Chloride 102 mmol/L (98-107); Estimated GFR 100.24 (mL/min/1.73m2); Glucose 109 mg/dL (74-106); Lipase 35 U/L (16-77); Sodium 137 mmol/L (136-145); Total Protein 8.1 g/dL (6.4-8.2)
[2023-04-09] MEDS: Omnipaque 350 MG/ML 100 ML BTL IJ (22:28)
[2023-04-09] MEDS: Normal Saline Flush 10 ML SYR IVP (22:29)
[2023-04-09] MEDS: Normal Saline - Diluent 50 ML VIAL IJ (22:29)
--- NOTE | 2023-04-09 23:15 | DI.VRAD_ITS ---
PROCEDURE INFORMATION: Exam: CT Abdomen And Pelvis With Contrast Exam date and time: 04/09/2023 10:18 PM Age: 58 years old Clinical indication: Localized; Prior surgery; Surgery date: 6+ months; Surgery type: Appendectomy, hernia repair; Patient HX: Mid to lower abdominal pain w/ diarrhea, HX appe TECHNIQUE: Imaging protocol: Computed tomography of the abdomen and pelvis with contrast. Radiation optimization: All CT scans at this facility use at least one of these dose optimization techniques: automated exposure control; mA and/or kV adjustment per patient size (includes targeted exams where dose is matched to clinical indication); or iterative reconstruction. Contrast material: OMNIPAQUE 350; Contrast volume: 100 ml; Contrast route: INTRAVENOUS (IV); COMPARISON: CT ABDOMEN PELVIS W 03/26/2023 3:38 PM FINDINGS: Liver: Hepatomegaly and hepatic steatosis. Enlarged liver measures approximately 20.8 cm in craniocaudal dimension. Gallbladder and bile ducts: No calcified stones. No ductal dilation. Pancreas: Unremarkable. No ductal dilation. Spleen: Unremarkable. No splenomegaly. Adrenal glands: Normal. No mass. Kidneys and ureters: Unremarkable. No hydronephrosis. Stomach and bowel: Colonic diverticulosis. Sigmoid colon is under distended, cannot rule out mild colitis. Mild stranding about sigmoid colon, cannot rule out mild diverticulitis. No mechanical bowel obstruction. Unopacified and under distended stomach and small bowel loops grossly unremarkable. Appendix: No evidence of appendicitis. Intraperitoneal space: No free air. No significant fluid collection. Vasculature: No abdominal aortic aneurysm. Lymph nodes: No enlarged lymph nodes. Urinary bladder: Unremarkable as visualized. Reproductive: Unremarkable as visualized. Bones/joints: Degenerative changes throughout the visualized spine. Soft tissues: Unremarkable. IMPRESSION: Colonic diverticulosis with mild pericolonic stranding, cannot rule out mild acute diverticulitis. Additionally, sigmoid colon is under distended cannot rule out mild thickening/colitis. The remainder of the GI tract is unremarkable. Dictated and Authenticated by: Jesús Garcia MD. Ordering:JESSICA Willson MD
[2023-04-09] MEDS: Ciprofloxacin 500 MG TAB PO (23:39)
[2023-04-09] MEDS: metroNIDAZOLE 500 MG TAB PO (23:44)
[2023-04-09 23:45] VITALS: BP 152/78; PULSE 72; RESP 16; O2SAT 96
[2023-04-09] MEDS: metroNIDAZOLE 500 MG TAB, 3 TABS/BTL PO (23:45)
== END 2023-04-09 23:48 | disposition home or self-care (01) ==
PROVIDERS: Emergency Provider Student in an Organized Health Care Education/Training Program; PCP Nurse Practitioner Family
DX: K57.32 Diverticulitis of large intestine without perforation or abscess without bleeding (principal); Z90.49 Acquired absence of other specified parts of digestive tract; G47.30 Sleep apnea, unspecified; I11.0 Hypertensive heart disease with heart failure; I50.30 Unspecified diastolic (congestive) heart failure; F17.200 Nicotine dependence, unspecified, uncomplicated
CPT/HCPCS: 36415; 80053; 83690; 96361; 96374; 99285; 74177; 83605; 85025; 99284; J1885; J3490

== ENCOUNTER 2024-03-03 21:44 | Outpatient (REF) | payer MEDICAID, SELFPAY ==
[2024-03-03 17:25] LABS: ALT 22 U/L (16-63); AST 11 U/L (15-37); Albumin 3.8 g/dL (3.4-5.0); Alkaline Phosphatase 86 U/L (46-116); Anion Gap 9.9 mmol/L (3-11); BUN 11 mg/dL (7-18); CO2 30.1 mmol/L (21.0-32.0); CREATININE 0.8 mg/dL (0.70-1.30); Calcium 9.3 mg/dL (8.5-10.1); Calculated LDL 150 mg/dL (<100); Chloride 102 mmol/L (98-107); Cholesterol 212 mg/dL (<200); Estimated GFR 103.87 (mL/min/1.73m2); Glucose 95 mg/dL (74-106); HDL Cholesterol 44 mg/dL (40-60); Potassium 4.3 mmol/L (3.5-5.1); Sodium 142 mmol/L (136-145); Total Protein 7.5 g/dL (6.4-8.2); Triglyceride 92 mg/dL (<150)
[2024-03-03 18:12] LABS: Hemoglobin A1C 5.4 % (<5.7)
== END 2024-03-03 21:45 | disposition home or self-care (01) ==
LOC: NCHCN 21:44
PROVIDERS: PCP Nurse Practitioner Family; Visit Provider Nurse Practitioner Family
DX: R73.03 Prediabetes (principal); R79.89 Other specified abnormal findings of blood chemistry; E78.89 Other lipoprotein metabolism disorders
CPT/HCPCS: 80053; 80061; 83036